=== PATIENT | male | born 1960 | race Two or more races ===

== ENCOUNTER 2019-02-09 10:09 | Emergency (ER) | payer OTHER ==
[~2019-02-09] VITALS: Ht 185.4 cm; Wt 112.5 kg
[2019-02-09] MEDS ORDERED: cloNIDine 0.2 mg/24hr 7DAY PATCH TD ONE (10:30)
[2019-02-09] MEDS ORDERED: FUROSEMIDE 20 MG TAB PO ONE (10:30)
[2019-02-09 10:58] LABS: Basophils # (auto) 0.1 uL; Basophils % (auto) 1.1 % (0.0-2.0); Eosinophils # (auto) 0.1 uL; Eosinophils % (auto) 1.9 % (0.0-7.0); Hematocrit 45.3 % (41.0-53.0); Hemoglobin 15.2 g/dL (13.5-17.5); Lymphocytes # (auto) 1.8 uL; Lymphocytes % (auto) 31.7 % (10.0-50.0); Mean Corpuscular Hemoglobin 29.5 pg (28.0-32.0); Mean Corpuscular Hgb Conc. 33.5 g/dL (32.0-36.0); Monocytes # (auto) 0.5 uL; Monocytes % (auto) 8.6 % (0.0-12.0); Neutrophils # (auto) 3.2 uL; Neutrophils % (auto) 56.7 % (37.0-80.0); Nucleated Red Blood Cells % 0.1 %; Platelet Count (auto) 212 10^3/uL (140-450); Red Blood Cells 5.15 10^6/uL (4.5-5.90); Red Cell Distribution Width 14.5 % (11.8-14.3); White Blood Cell 5.6 10^3/uL (4.4-10.8)
[2019-02-09 11:14] LABS: INR 0.97 (0.9-1.15); Partial Thromboplastin Time 25.8 sec (23.64-32.05)
[2019-02-09 11:20] LABS: Calcium 8.4 mg/dL (8.5-10.1); Potassium 3.5 mmol/L (3.5-5.1)
[2019-02-09 11:24] LABS: BUN/Creatinine Ratio 9.9; Bilirubin, Total 1.2 mg/dL (0.2-1.0); Total Protein 7.4 g/dL (6.4-8.2)
[2019-02-09] MEDS ORDERED: amLODIPine BESYLATE 5 MG TAB PO ONE (11:45)
[2019-02-09] MEDS ORDERED: LABETALOL HCL 5 MG/ML ML 20ML VIAL IV ONE ×2 (12:40→12:45)
[2019-02-09] MEDS: NICARDIPINE 25MG/250ML BAG KIT 250 ML IV SCH ×2 (13:14→17:12)
[2019-02-09 15:05] LABS: Urine WBC None Seen /hpf (0 - 3)
[2019-02-09 15:17] LABS: Urine Bacteria NONE SEEN /hpf (None Seen); Urine Blood Negative /uL (Negative); Urine Specific Gravity 1.009 (1.001-1.035)
[2019-02-09 22:30] VITALS: BP 135/75
== END 2019-02-09 23:00 | disposition short-term general hospital (02) ==
LOC: ER 10:09
DX: I11.0 Hypertensive heart disease with heart failure (principal); I50.9 Heart failure, unspecified; F17.210 Nicotine dependence, cigarettes, uncomplicated; F12.10 Cannabis abuse, uncomplicated
CPT/HCPCS: 36415; 71045; 80053; 81001; 83880; 84484; 85025; 85610; 85730; 93005; 93970; 96365; 96366; 96375

== ENCOUNTER 2019-03-04 17:17 | Emergency (ER) | payer OTHER ==
[~2019-03-04] VITALS: Ht 185.4 cm; Wt 112.0 kg
[2019-03-04] MEDS ORDERED: cloNIDine HCL 0.1 MG TAB PO ONE (18:00)
[2019-03-04 18:34] LABS: Basophils # (auto) 0.1 uL; Basophils % (auto) 2.2 % (0.0-2.0); Eosinophils # (auto) 0.1 uL; Hematocrit 45.7 % (41.0-53.0); Hemoglobin 15.2 g/dL (13.5-17.5); Lymphocytes # (auto) 1.6 uL; Lymphocytes % (auto) 28.2 % (10.0-50.0); Mean Corpuscular Hgb Conc. 33.3 g/dL (32.0-36.0); Mean Corpuscular Volume 86.9 fL (80.0-100.0); Monocytes # (auto) 0.4 uL; Neutrophils # (auto) 3.3 uL; Neutrophils % (auto) 59.6 % (37.0-80.0); Nucleated Red Blood Cells % 0.3 %; Platelet Count (auto) 236 10^3/uL (140-450); Red Blood Cells 5.26 10^6/uL (4.5-5.90); Red Cell Distribution Width 14.2 % (11.8-14.3); White Blood Cell 5.5 10^3/uL (4.4-10.8)
[2019-03-04 18:59] LABS: BUN/Creatinine Ratio 8.9; Potassium 3.7 mmol/L (3.5-5.1)
[2019-03-04 19:02] LABS: Bilirubin, Total 0.4 mg/dL (0.2-1.0); Total Protein 7.6 g/dL (6.4-8.2)
[2019-03-04 19:03] LABS: Magnesium 2.3 mg/dL (1.6-2.6)
[2019-03-04 19:07] LABS: INR 0.96 (0.9-1.15); Partial Thromboplastin Time 24.8 sec (23.64-32.05)
[2019-03-04] MEDS ORDERED: hydrALAZINE HCL 20 MG/ML VL IV ONE ×2 (19:30→20:30)
[2019-03-04] MEDS ORDERED: hydrALAZINE HCL 20 MG/ML VL ONE (20:18)
[2019-03-04 20:48] VITALS: BP 193/101
== END 2019-03-04 21:08 | disposition short-term general hospital (02) ==
LOC: ER 17:17 → EDBD 17:17 → ER 21:08
DX: I63.9 Cerebral infarction, unspecified (principal); I10 Essential (primary) hypertension; G45.9 Transient cerebral ischemic attack, unspecified; I63.81 Other cerebral infarction due to occlusion or stenosis of small artery; E78.5 Hyperlipidemia, unspecified; F17.210 Nicotine dependence, cigarettes, uncomplicated; F12.10 Cannabis abuse, uncomplicated
CPT/HCPCS: 36415; 70450; 71045; 80053; 83735; 84484; 85025; 85610; 85730; 93005; 94761; 96374; 96376; 99291; J0360; J7042

== ENCOUNTER 2020-03-04 13:28 | Inpatient (IN) | payer MEDICAID, OTHER ==
[~2020-03-04] VITALS: Ht 188 cm; Wt 108.0 kg
[2020-03-04] MEDS ORDERED: SODIUM CHLORIDE 0.9% 1,000 ML IV ONE (13:34)
[2020-03-04] MEDS ORDERED: LABETALOL HCL 5 MG/ML 4ML SYRINGE IV ONE (15:15)
[2020-03-04] MEDS ORDERED: ENOXAPARIN SOD 120 MG/0.8 ML SYRINGE SC ONE (15:15)
[2020-03-04 15:54] LABS: Basophils # (auto) 0.1 10 ^3/uL (0-0.2); Basophils % (auto) 1.1 % (0.0-2.0); Eosinophils # (auto) 0.1 10 ^3/uL (0-0.8); Eosinophils % (auto) 1.6 % (0.0-7.0); Hematocrit 42.3 % (41.0-53.0); Hemoglobin 14.4 g/dL (13.5-17.5); Lymphocytes # (auto) 1.2 10 ^3/uL (0.4-5.4); Lymphocytes % (auto) 17.3 % (10.0-50.0); Mean Corpuscular Hemoglobin 29.7 pg (28.0-32.0); Mean Corpuscular Hgb Conc. 34.1 g/dL (32.0-36.0); Monocytes # (auto) 0.6 10 ^3/uL (0-1.3); Monocytes % (auto) 8.9 % (0.0-12.0); Neutrophils % (auto) 71.1 % (37.0-80.0); Nucleated Red Blood Cells % 0.1 %; Platelet Count (auto) 306 10^3/uL (140-450); Red Blood Cells 4.86 10^6/uL (4.5-5.90)
[2020-03-04 16:14] LABS: Albumin 3.3 g/dL (3.4-5.0); BUN/Creatinine Ratio 8.9; Calcium 8.7 mg/dL (8.5-10.1); Potassium 3.6 mmol/L (3.5-5.1)
[2020-03-04 16:18] LABS: Bilirubin, Total 0.8 mg/dL (0.2-1.0); Total Protein 7.2 g/dL (6.4-8.2)
[2020-03-04 16:23] LABS: Partial Thromboplastin Time 26.7 sec (23.0-31.2)
[2020-03-04] MEDS ORDERED: SODIUM CHLORIDE 0.9% 1,000 ML IV SCH (16:30)
[2020-03-04] MEDS ORDERED: MORPHINE SULF INJ 2 MG/ML SYRINGE 1ML IV PRN ×2 (16:30)
[2020-03-04] MEDS ORDERED: NITROGLYCERIN 0.4 MG SL TAB SL PRN (16:30)
[2020-03-04] MEDS ORDERED: DOCUSATE CALCIUM 240 MG CAP PO PRN (16:30)
[2020-03-04] MEDS ORDERED: LORazepam 0.5 MG TAB PO PRN (16:30)
[2020-03-04] MEDS ORDERED: LABETALOL HCL 5 MG/ML 4ML SYRINGE IV PRN (16:30)
[2020-03-04] MEDS ORDERED: FURO1TAB31 PO (19:12)
[2020-03-04] MEDS ORDERED: POTA1TAB61 PO (19:55)
[2020-03-04] MEDS ORDERED: LISI-275 PO (19:55)
[2020-03-04] MEDS ORDERED: ATOR40TA52 PO (19:55)
[2020-03-04] MEDS ORDERED: AMLO5TAB15 PO (19:55)
[2020-03-04] MEDS ORDERED: HYDR10TA26 PO (19:55)
[2020-03-04] MEDS ORDERED: ASCO500T11 PO (19:55)
[2020-03-04] MEDS ORDERED: DABI75CA5 PO (19:55)
[2020-03-04] MEDS ORDERED: METO25TA5 PO (19:55)
[2020-03-04] MEDS ORDERED: BENZ100C97 PO (19:55)
[2020-03-04 22:00] VITALS: BP 157/108
[2020-03-04] MEDS: ENOXAPARIN SOD 120 MG/0.8 ML SYRINGE SC SCH (22:12)
[2020-03-04 22:13] VITALS: BP 157/108
[2020-03-05] VITALS: BP 146/81
[2020-03-05 05:00] VITALS: BP 155/94
[2020-03-05 06:26] LABS: Basophils # (auto) 0 10 ^3/uL (0-0.2); Basophils % (auto) 0.5 % (0.0-2.0); Eosinophils # (auto) 0.2 10 ^3/uL (0-0.8); Eosinophils % (auto) 2.6 % (0.0-7.0); Hematocrit 41.9 % (41.0-53.0); Hemoglobin 14.1 g/dL (13.5-17.5); Lymphocytes # (auto) 1.8 10 ^3/uL (0.4-5.4); Lymphocytes % (auto) 31.1 % (10.0-50.0); Mean Corpuscular Hemoglobin 29.8 pg (28.0-32.0); Mean Corpuscular Hgb Conc. 33.8 g/dL (32.0-36.0); Mean Corpuscular Volume 88.3 fL (80.0-100.0); Monocytes # (auto) 0.6 10 ^3/uL (0-1.3); Monocytes % (auto) 10.4 % (0.0-12.0); Neutrophils # (auto) 3.3 10 ^3/uL (1.6-8.6); Neutrophils % (auto) 55.4 % (37.0-80.0); Nucleated Red Blood Cells % 0.1 %; Platelet Count (auto) 275 10^3/uL (140-450); Red Blood Cells 4.74 10^6/uL (4.5-5.90); Red Cell Distribution Width 13.3 % (11.8-14.3); White Blood Cell 5.9 10^3/uL (4.4-10.8)
[2020-03-05 07:00] LABS: Potassium 3.7 mmol/L (3.5-5.1)
[2020-03-05 07:32] LABS: Albumin 3.4 g/dL (3.4-5.0); BUN/Creatinine Ratio 10.7; Bilirubin, Total 0.6 mg/dL (0.2-1.0); Calcium 8.7 mg/dL (8.5-10.1); Total Protein 6.8 g/dL (6.4-8.2)
[2020-03-05 09:00] VITALS: BP 166/86
[2020-03-05] MEDS: PANTOPRAZOLE 40 MG TAB PO SCH (09:55)
[2020-03-05] MEDS: ENOXAPARIN SOD 120 MG/0.8 ML SYRINGE SC SCH ×2 (09:56→21:28)
[2020-03-05] MEDS ORDERED: traMADol HCL 50 MG TAB PO PRN (11:30)
[2020-03-05] MEDS ORDERED: amLODIPine BESYLATE 5 MG TAB PO ONE (11:30)
[2020-03-05] MEDS ORDERED: LABETALOL HCL 5 MG/ML 4ML SYRINGE IV PRN (11:30)
[2020-03-05] MEDS ORDERED: METOPROLOL TARTRATE 25 MG TAB PO ONE (11:30)
[2020-03-05] MEDS ORDERED: DABI75CA5 PO (12:22)
[2020-03-05] MEDS ORDERED: ATOR10TA PO (12:22)
[2020-03-05 13:02] VITALS: BP 160/79
[2020-03-05 16:46] VITALS: BP 151/79
[2020-03-05 21:16] LABS: Urine Bacteria NONE SEEN /hpf (None Seen); Urine Blood Negative /uL (Negative); Urine Mucus FEW (None Seen); Urine Specific Gravity 1.019 (1.001-1.035); Urine WBC 2 /hpf (0 - 3)
[2020-03-05] MEDS: ATORVASTATIN 20 MG TAB PO SCH (21:27)
[2020-03-05] MEDS: METOPROLOL TARTRATE 25 MG TAB PO SCH (21:28)
[2020-03-05 22:00] VITALS: BP 131/72
[2020-03-06] VITALS (26 sets, daily range): BP systolic 121–160; BP diastolic 77–100
[2020-03-06 06:05] LABS: Basophils # (auto) 0.1 10 ^3/uL (0-0.2); Basophils % (auto) 0.9 % (0.0-2.0); Eosinophils # (auto) 0.2 10 ^3/uL (0-0.8); Eosinophils % (auto) 3.4 % (0.0-7.0); Hematocrit 41.3 % (41.0-53.0); Hemoglobin 14.3 g/dL (13.5-17.5); Lymphocytes % (auto) 34.2 % (10.0-50.0); Mean Corpuscular Hemoglobin 29.9 pg (28.0-32.0); Mean Corpuscular Hgb Conc. 34.6 g/dL (32.0-36.0); Mean Corpuscular Volume 86.7 fL (80.0-100.0); Monocytes # (auto) 0.5 10 ^3/uL (0-1.3); Monocytes % (auto) 8.7 % (0.0-12.0); Neutrophils # (auto) 3.2 10 ^3/uL (1.6-8.6); Neutrophils % (auto) 52.8 % (37.0-80.0); Nucleated Red Blood Cells % 0.2 %; Platelet Count (auto) 296 10^3/uL (140-450); Red Blood Cells 4.76 10^6/uL (4.5-5.90)
[2020-03-06 06:27] LABS: Calcium 8.8 mg/dL (8.5-10.1); Potassium 3.7 mmol/L (3.5-5.1)
[2020-03-06 06:29] LABS: BUN/Creatinine Ratio 10.8
[2020-03-06] MEDS: METOPROLOL TARTRATE 25 MG TAB PO SCH ×2 (10:27→22:29)
[2020-03-06] MEDS: amLODIPine BESYLATE 5 MG TAB PO SCH (10:27)
[2020-03-06] MEDS: PANTOPRAZOLE 40 MG TAB PO SCH (10:28)
[2020-03-06] MEDS: ENOXAPARIN SOD 120 MG/0.8 ML SYRINGE SC SCH (10:28)
[2020-03-06] MEDS ORDERED: POTASSIUM CHL 20 Meq TABLET PO ONE (10:30)
[2020-03-06] MEDS ORDERED: FUROSEMIDE 40 MG TAB PO ONE (10:30)
[2020-03-06] MEDS ORDERED: IOHEXOL 300 MG/ML 100ML BOTTLE IJ ONE (11:12)
[2020-03-06] MEDS ORDERED: LIDOCAINE 2%HCL (LOCAL ANESTH.) INJ 20ML MDV ONE (14:02)
[2020-03-06] MEDS ORDERED: IOHEXOL 350 MG/ML 100ML IJ ONE ×2 (14:03)
[2020-03-06] MEDS ORDERED: fentaNYL CITRATE 100 MCG/2 ML VL ONE ×2 (14:20→16:30)
[2020-03-06] MEDS ORDERED: MIDAZOLAM HCL 1MG/1ML-2 ML VIAL ONE (14:20)
[2020-03-06] MEDS ORDERED: LABETALOL HCL 5 MG/ML ML 20ML VIAL IV ONE (14:34)
[2020-03-06] MEDS ORDERED: ANGIOMAX 250 MG VIAL IV ONE (14:40)
[2020-03-06] MEDS ORDERED: SODIUM CHL 0.9% 0 ML ONE (14:40)
[2020-03-06] MEDS ORDERED: CATHFLO ACTIVASE (ALTEPLASE) 2 MG VIAL IV ONE ×3 (14:45→16:30)
[2020-03-06] MEDS ORDERED: IODIXANOL 320MG/ML 100ML BTL IV ONE ×2 (14:50→15:56)
[2020-03-06] MEDS ORDERED: HEPARIN DRIP/D5W 100UNITS/ML 250 ML IV SCH (16:41)
[2020-03-06] MEDS ORDERED: SODIUM CHL 0.9% IV ONE (17:00)
[2020-03-06] MEDS ORDERED: CATHFLO IV ONE (17:00)
[2020-03-06] MEDS ORDERED: ALTEPLASE IV ONE (17:00)
[2020-03-06] MEDS: ALTEPLASE IV SCH ×4 (17:30)
[2020-03-06] MEDS: SODIUM CHL 0.9% IV SCH ×4 (17:30)
[2020-03-06] MEDS: CATHFLO IV SCH ×4 (17:30)
[2020-03-06 17:39] LABS: Basophils # (auto) 0.1 10 ^3/uL (0-0.2); Basophils % (auto) 0.6 % (0.0-2.0); Eosinophils # (auto) 0.1 10 ^3/uL (0-0.8); Eosinophils % (auto) 1.3 % (0.0-7.0); Hematocrit 39.4 % (41.0-53.0); Hemoglobin 13.2 g/dL (13.5-17.5); Lymphocytes # (auto) 1.2 10 ^3/uL (0.4-5.4); Mean Corpuscular Hemoglobin 29.5 pg (28.0-32.0); Mean Corpuscular Hgb Conc. 33.5 g/dL (32.0-36.0); Mean Corpuscular Volume 87.9 fL (80.0-100.0); Monocytes # (auto) 0.6 10 ^3/uL (0-1.3); Neutrophils # (auto) 7.8 10 ^3/uL (1.6-8.6); Neutrophils % (auto) 80.1 % (37.0-80.0); Nucleated Red Blood Cells % 0.1 %; Platelet Count (auto) 302 10^3/uL (140-450); Red Blood Cells 4.49 10^6/uL (4.5-5.90); White Blood Cell 9.7 10^3/uL (4.4-10.8)
[2020-03-06 17:55] LABS: INR 1.03 (0.9-1.15); Partial Thromboplastin Time 28.2 sec (23.0-31.2)
[2020-03-06] MEDS: ATORVASTATIN 20 MG TAB PO SCH (22:28)
[2020-03-07] VITALS (42 sets, daily range): BP systolic 117–169; BP diastolic 58–96
[2020-03-07 00:52] LABS: Basophils # (auto) 0 10 ^3/uL (0-0.2); Basophils % (auto) 0.5 % (0.0-2.0); Eosinophils # (auto) 0.1 10 ^3/uL (0-0.8); Eosinophils % (auto) 0.8 % (0.0-7.0); Hematocrit 42.2 % (41.0-53.0); Lymphocytes # (auto) 1.7 10 ^3/uL (0.4-5.4); Lymphocytes % (auto) 20.5 % (10.0-50.0); Mean Corpuscular Hgb Conc. 33.1 g/dL (32.0-36.0); Mean Corpuscular Volume 90.5 fL (80.0-100.0); Monocytes # (auto) 0.7 10 ^3/uL (0-1.3); Monocytes % (auto) 8.1 % (0.0-12.0); Neutrophils # (auto) 5.8 10 ^3/uL (1.6-8.6); Neutrophils % (auto) 70.1 % (37.0-80.0); Nucleated Red Blood Cells % 0.1 %; Platelet Count (auto) 289 10^3/uL (140-450); Red Blood Cells 4.67 10^6/uL (4.5-5.90); Red Cell Distribution Width 13.2 % (11.8-14.3); White Blood Cell 8.2 10^3/uL (4.4-10.8)
[2020-03-07 01:30] LABS: INR 1.03 (0.9-1.15); Partial Thromboplastin Time 30.9 sec (23.0-31.2)
[2020-03-07] MEDS: CATHFLO IV SCH ×6 (03:40→13:30)
[2020-03-07] MEDS: ALTEPLASE IV SCH ×6 (03:40→13:30)
[2020-03-07] MEDS: SODIUM CHL 0.9% IV SCH ×6 (03:40→13:30)
[2020-03-07 07:59] LABS: Basophils # (auto) 0 10 ^3/uL (0-0.2); Basophils % (auto) 0.5 % (0.0-2.0); Eosinophils # (auto) 0.1 10 ^3/uL (0-0.8); Eosinophils % (auto) 1.6 % (0.0-7.0); Hematocrit 38.9 % (41.0-53.0); Hemoglobin 13.2 g/dL (13.5-17.5); Lymphocytes % (auto) 28.5 % (10.0-50.0); Mean Corpuscular Hemoglobin 29.8 pg (28.0-32.0); Mean Corpuscular Volume 87.9 fL (80.0-100.0); Monocytes # (auto) 0.6 10 ^3/uL (0-1.3); Monocytes % (auto) 9.1 % (0.0-12.0); Neutrophils # (auto) 4.2 10 ^3/uL (1.6-8.6); Neutrophils % (auto) 60.3 % (37.0-80.0); Nucleated Red Blood Cells % 0.2 %; Platelet Count (auto) 263 10^3/uL (140-450); Red Blood Cells 4.42 10^6/uL (4.5-5.90); Red Cell Distribution Width 13.3 % (11.8-14.3); White Blood Cell 6.9 10^3/uL (4.4-10.8)
[2020-03-07 08:05] LABS: BUN/Creatinine Ratio 11.2; Calcium 8.5 mg/dL (8.5-10.1); Potassium 3.8 mmol/L (3.5-5.1)
[2020-03-07 08:07] LABS: INR 1.08 (0.9-1.15); Partial Thromboplastin Time 32.6 sec (23.0-31.2)
[2020-03-07] MEDS: FUROSEMIDE 40 MG TAB PO SCH (10:10)
[2020-03-07] MEDS: POTASSIUM CHL 20 Meq TABLET PO SCH (10:10)
[2020-03-07] MEDS: METOPROLOL TARTRATE 25 MG TAB PO SCH ×2 (10:11→22:04)
[2020-03-07] MEDS: PANTOPRAZOLE 40 MG TAB PO SCH (10:11)
[2020-03-07] MEDS: amLODIPine BESYLATE 5 MG TAB PO SCH (10:11)
[2020-03-07 12:45] LABS: INR 1.08 (0.9-1.15); Partial Thromboplastin Time 29.9 sec (23.0-31.2)
[2020-03-07] MEDS ORDERED: IOHEXOL 350 MG/ML 100ML IJ ONE (13:16)
[2020-03-07] MEDS ORDERED: LIDOCAINE 2%HCL (LOCAL ANESTH.) INJ 20ML MDV ONE (13:16)
[2020-03-07] MEDS ORDERED: MIDAZOLAM HCL 1MG/1ML-2 ML VIAL ONE (14:36)
[2020-03-07] MEDS ORDERED: fentaNYL CITRATE 100 MCG/2 ML VL ONE (14:36)
[2020-03-07] MEDS ORDERED: HEPARIN DRIP/D5W 100UNITS/ML 250 ML IV SCH ×4 (17:00→21:30)
[2020-03-07] MEDS: HEPARIN DRIP/D5W 100UNITS/ML 250 ML IV SCH (21:30)
[2020-03-07] MEDS: ATORVASTATIN 20 MG TAB PO SCH (22:04)
[2020-03-07 23:55] LABS: INR 1.08 (0.9-1.15)
[2020-03-07 23:56] LABS: Partial Thromboplastin Time 101.1 sec (23.0-31.2)
[2020-03-08] VITALS (29 sets, daily range): BP systolic 128–160; BP diastolic 35–112
[2020-03-08] MEDS: HEPARIN DRIP/D5W 100UNITS/ML 250 ML IV SCH (05:59)
[2020-03-08 06:32] LABS: Potassium 3.7 mmol/L (3.5-5.1)
[2020-03-08 06:34] LABS: Basophils # (auto) 0.1 10 ^3/uL (0-0.2); Basophils % (auto) 0.8 % (0.0-2.0); Eosinophils # (auto) 0.2 10 ^3/uL (0-0.8); Eosinophils % (auto) 2.6 % (0.0-7.0); Hematocrit 34.5 % (41.0-53.0); Hemoglobin 11.7 g/dL (13.5-17.5); Lymphocytes # (auto) 1.9 10 ^3/uL (0.4-5.4); Mean Corpuscular Hemoglobin 29.7 pg (28.0-32.0); Mean Corpuscular Hgb Conc. 33.9 g/dL (32.0-36.0); Mean Corpuscular Volume 87.4 fL (80.0-100.0); Monocytes # (auto) 0.6 10 ^3/uL (0-1.3); Monocytes % (auto) 9.1 % (0.0-12.0); Neutrophils # (auto) 3.6 10 ^3/uL (1.6-8.6); Neutrophils % (auto) 57.5 % (37.0-80.0); Nucleated Red Blood Cells % 0.1 %; Platelet Count (auto) 246 10^3/uL (140-450); Red Blood Cells 3.95 10^6/uL (4.5-5.90); Red Cell Distribution Width 13.2 % (11.8-14.3); White Blood Cell 6.2 10^3/uL (4.4-10.8)
[2020-03-08 06:43] LABS: BUN/Creatinine Ratio 10.5; Calcium 8.3 mg/dL (8.5-10.1)
[2020-03-08 06:49] LABS: INR 1.06 (0.9-1.15)
[2020-03-08] MEDS: POTASSIUM CHL 20 Meq TABLET PO SCH (09:51)
[2020-03-08] MEDS: FUROSEMIDE 40 MG TAB PO SCH (09:52)
[2020-03-08] MEDS: amLODIPine BESYLATE 5 MG TAB PO SCH (09:52)
[2020-03-08] MEDS: METOPROLOL TARTRATE 25 MG TAB PO SCH ×2 (09:53→22:01)
[2020-03-08] MEDS: PANTOPRAZOLE 40 MG TAB PO SCH (09:54)
[2020-03-08 14:03] LABS: INR 1.03 (0.9-1.15)
[2020-03-08] MEDS: APIXABAN 5 MG TAB PO SCH (22:01)
[2020-03-08] MEDS: ATORVASTATIN 20 MG TAB PO SCH (22:01)
[2020-03-09 05:03] VITALS: BP 139/74
[2020-03-09 07:03] LABS: Basophils # (auto) 0.1 10 ^3/uL (0-0.2); Basophils % (auto) 1.2 % (0.0-2.0); Eosinophils # (auto) 0.2 10 ^3/uL (0-0.8); Eosinophils % (auto) 3.2 % (0.0-7.0); Hematocrit 32.4 % (41.0-53.0); Lymphocytes # (auto) 1.7 10 ^3/uL (0.4-5.4); Lymphocytes % (auto) 30.3 % (10.0-50.0); Mean Corpuscular Hemoglobin 29.8 pg (28.0-32.0); Mean Corpuscular Volume 87.6 fL (80.0-100.0); Monocytes # (auto) 0.5 10 ^3/uL (0-1.3); Neutrophils # (auto) 3.1 10 ^3/uL (1.6-8.6); Neutrophils % (auto) 56.3 % (37.0-80.0); Platelet Count (auto) 242 10^3/uL (140-450); White Blood Cell 5.5 10^3/uL (4.4-10.8)
[2020-03-09 09:00] VITALS: BP 158/70
[2020-03-09] MEDS: APIXABAN 5 MG TAB PO SCH ×2 (10:20→21:26)
[2020-03-09] MEDS: METOPROLOL TARTRATE 25 MG TAB PO SCH ×2 (10:21→21:26)
[2020-03-09] MEDS: PANTOPRAZOLE 40 MG TAB PO SCH (10:21)
[2020-03-09] MEDS: FUROSEMIDE 40 MG TAB PO SCH (10:21)
[2020-03-09] MEDS: amLODIPine BESYLATE 5 MG TAB PO SCH (10:21)
[2020-03-09] MEDS: POTASSIUM CHL 20 Meq TABLET PO SCH (10:21)
[2020-03-09 13:00] VITALS: BP 153/71
[2020-03-09 16:52] VITALS: BP 159/83
[2020-03-09] MEDS: ATORVASTATIN 20 MG TAB PO SCH (21:26)
[2020-03-09 22:00] VITALS: BP 145/69
[2020-03-10 05:00] VITALS: BP 144/78
[2020-03-10 08:52] VITALS: BP 154/76
[2020-03-10] MEDS: APIXABAN 5 MG TAB PO SCH ×2 (10:23→21:30)
[2020-03-10] MEDS: PANTOPRAZOLE 40 MG TAB PO SCH (10:23)
[2020-03-10] MEDS: POTASSIUM CHL 20 Meq TABLET PO SCH (10:23)
[2020-03-10] MEDS: amLODIPine BESYLATE 5 MG TAB PO SCH (10:25)
[2020-03-10] MEDS: METOPROLOL TARTRATE 25 MG TAB PO SCH ×2 (10:25→21:30)
[2020-03-10] MEDS: FUROSEMIDE 40 MG TAB PO SCH (10:26)
[2020-03-10 13:00] VITALS: BP 126/69
[2020-03-10 17:00] VITALS: BP 138/75
[2020-03-10] MEDS: ATORVASTATIN 20 MG TAB PO SCH (21:31)
[2020-03-10 21:59] VITALS: BP 139/77
[2020-03-11 05:00] VITALS: BP 133/76
[2020-03-11 06:27] LABS: Basophils # (auto) 0 10 ^3/uL (0-0.2); Basophils % (auto) 0.7 % (0.0-2.0); Eosinophils # (auto) 0.2 10 ^3/uL (0-0.8); Eosinophils % (auto) 2.9 % (0.0-7.0); Hematocrit 34.3 % (41.0-53.0); Hemoglobin 11.8 g/dL (13.5-17.5); Lymphocytes # (auto) 2.1 10 ^3/uL (0.4-5.4); Lymphocytes % (auto) 31.6 % (10.0-50.0); Mean Corpuscular Hemoglobin 29.8 pg (28.0-32.0); Mean Corpuscular Hgb Conc. 34.3 g/dL (32.0-36.0); Mean Corpuscular Volume 86.8 fL (80.0-100.0); Monocytes # (auto) 0.5 10 ^3/uL (0-1.3); Monocytes % (auto) 7.9 % (0.0-12.0); Neutrophils # (auto) 3.7 10 ^3/uL (1.6-8.6); Neutrophils % (auto) 56.9 % (37.0-80.0); Nucleated Red Blood Cells % 0.2 %; Platelet Count (auto) 317 10^3/uL (140-450); Red Blood Cells 3.95 10^6/uL (4.5-5.90); Red Cell Distribution Width 13.2 % (11.8-14.3); White Blood Cell 6.5 10^3/uL (4.4-10.8)
[2020-03-11 06:45] LABS: BUN/Creatinine Ratio 11.3; Calcium 8.8 mg/dL (8.5-10.1); Potassium 3.7 mmol/L (3.5-5.1)
[2020-03-11 08:00] VITALS: BP 144/72
[2020-03-11] MEDS: APIXABAN 5 MG TAB PO SCH (10:09)
[2020-03-11] MEDS: POTASSIUM CHL 20 Meq TABLET PO SCH (10:10)
[2020-03-11] MEDS: FUROSEMIDE 40 MG TAB PO SCH (10:11)
[2020-03-11] MEDS: METOPROLOL TARTRATE 25 MG TAB PO SCH (10:11)
[2020-03-11] MEDS: PANTOPRAZOLE 40 MG TAB PO SCH (10:12)
[2020-03-11] MEDS: amLODIPine BESYLATE 5 MG TAB PO SCH (10:12)
[2020-03-11 12:00] VITALS: BP 134/69
[2020-03-11 14:09] VITALS: BP 134/69
[2020-03-15] MEDS ORDERED: APIXABAN 5 MG TAB PO SCH (22:00)
== END 2020-03-11 19:09 | disposition home or self-care (01) | DRG 197 ==
LOC: EDBD 13:28 → ER 13:28 → TELE 13:29 → TELE-CENTR 21:13 → ICU WEST 03-06 17:45 → TELE-WESTW 03-08 15:52
PROVIDERS: ATTEND Internal Medicine
PROC: 3E04317 Introduction of Other Thrombolytic into Central Vein, Percutaneous Approach (ICD-10-PCS; principal; 2020-03-06)
PROC: 06H03DZ Insertion of Intraluminal Device into Inferior Vena Cava, Percutaneous Approach (ICD-10-PCS; 2020-03-06)
DX: I82.412 Acute embolism and thrombosis of left femoral vein (principal); I26.99 Other pulmonary embolism without acute cor pulmonale; I50.42 Chronic combined systolic (congestive) and diastolic (congestive) heart failure; I82.432 Acute embolism and thrombosis of left popliteal vein; I16.0 Hypertensive urgency; E78.5 Hyperlipidemia, unspecified; I69.354 Hemiplegia and hemiparesis following cerebral infarction affecting left non-dominant side; R60.0 Localized edema; E66.9 Obesity, unspecified; E75.6 Lipid storage disorder, unspecified; Z68.30 Body mass index [BMI] 30.0-30.9, adult; Z79.01 Long term (current) use of anticoagulants; F17.210 Nicotine dependence, cigarettes, uncomplicated; K57.30 Diverticulosis of large intestine without perforation or abscess without bleeding; I11.0 Hypertensive heart disease with heart failure; N28.9 Disorder of kidney and ureter, unspecified
CPT/HCPCS: 36415; 71045; 74177; 76942; 80048; 80053; 80061; 81001; 83036; 83880; 84484; 85025; 85384; 85610; 85730; 87081; 93005; 93971; 99152; 99153; C1769; G0378; J2250; Q9967

== ENCOUNTER 2022-02-26 17:41 | Emergency (ER) | payer OTHER ==
[~2022-02-26] VITALS: Ht 185.4 cm; Wt 99.7 kg
[~2022-02-26 17:41] MED LIST: AMLO-489 PO; ASCO500T11 PO; ATOR10TA PO; ATOR40TA52 PO; BENZ100C97 PO; DABI75CA5 PO; FURO1TAB31 PO; HYDR10TA26 PO; LISI-275 PO; METO25TA5 PO; POTA1TAB61 PO
[2022-02-26] MEDS ORDERED: SODIUM CHLORIDE 0.9% 500 ML IV ONE (18:30)
[2022-02-26 19:20] LABS: Basophils # (auto) 0.1 10 ^3/uL (0-0.2); Basophils % (auto) 1.5 % (0.0-2.0); Eosinophils # (auto) 0.2 10 ^3/uL (0-0.8); Eosinophils % (auto) 2.3 % (0.0-7.0); Hematocrit 40.8 % (41.0-53.0); Hemoglobin 13.3 g/dL (13.5-17.5); Lymphocytes # (auto) 2.1 10 ^3/uL (0.4-5.4); Lymphocytes % (auto) 27.5 % (10.0-50.0); Mean Corpuscular Hemoglobin 27.9 pg (28.0-32.0); Mean Corpuscular Hgb Conc. 32.6 g/dL (32.0-36.0); Mean Corpuscular Volume 85.7 fL (80.0-100.0); Monocytes # (auto) 0.4 10 ^3/uL (0-1.3); Monocytes % (auto) 5.8 % (0.0-12.0); Neutrophils # (auto) 4.8 10 ^3/uL (1.6-8.6); Neutrophils % (auto) 62.9 % (37.0-80.0); Nucleated Red Blood Cells % 0.1 %; Red Blood Cells 4.76 10^6/uL (4.5-5.90); Red Cell Distribution Width 13.8 % (11.8-14.3); White Blood Cell 7.7 10^3/uL (4.4-10.8)
[2022-02-26 19:36] LABS: Albumin 3.5 g/dL (3.4-5.0); Calcium 8.7 mg/dL (8.5-10.1); Magnesium 2.3 mg/dL (1.6-2.6); Potassium 4.3 mmol/L (3.5-5.1)
[2022-02-26 19:41] LABS: BUN/Creatinine Ratio 13.4; Bilirubin, Total 0.4 mg/dL (0.2-1.0)
[2022-02-26 21:31] LABS: Urine Bacteria FEW /hpf (None Seen); Urine Blood 1+ /uL (Negative); Urine WBC 1 /hpf (0 - 3)
[2022-02-27 09:30] VITALS: BP 173/89
== END 2022-02-27 11:31 | disposition home or self-care (01) ==
LOC: EDBD 17:41 → EDUNIT# 17:41 → ER 17:41
DX: E11.65 Type 2 diabetes mellitus with hyperglycemia (principal); I10 Essential (primary) hypertension; E78.5 Hyperlipidemia, unspecified; F17.210 Nicotine dependence, cigarettes, uncomplicated; F12.10 Cannabis abuse, uncomplicated; Z86.73 Personal history of transient ischemic attack (TIA), and cerebral infarction without residual deficits
CPT/HCPCS: 36415; 71045; 80053; 81001; 82962; 83735; 83880; 84484; 85025; 93005; 96360; 99285; J7040

== ENCOUNTER 2022-11-04 16:18 | Emergency (ER) | payer OTHER ==
[~2022-11-04] VITALS: Ht 185.4 cm; Wt 111.4 kg
[~2022-11-04 16:18] MED LIST changes: -AMLO-489 PO; +AMLO1TAB22 PO; +APIX5TAB PO; +ASPI-628 PO; +CEPH-510 PO; +ESCI1TAB36 PO; +FENO145T27 PO; +GAB100C PO; +HYDR-4227 PO; -HYDR10TA26 PO; +INSU70IN3 SC; +METF-372 PO
[2022-11-04 17:13] LABS: Hemoglobin 11.4 g/dL (13.5-17.5)
[2022-11-04 17:16] LABS: Basophils # (auto) 0 10 ^3/uL (0-0.2); Basophils % (auto) 0.6 % (0.0-2.0); Eosinophils # (auto) 0.1 10 ^3/uL (0-0.8); Eosinophils % (auto) 2.2 % (0.0-7.0); Hematocrit 36.2 % (41.0-53.0); Lymphocytes # (auto) 2.1 10 ^3/uL (0.4-5.4); Lymphocytes % (auto) 33.3 % (10.0-50.0); Mean Corpuscular Hemoglobin 28.3 pg (28.0-32.0); Mean Corpuscular Hgb Conc. 31.6 g/dL (32.0-36.0); Mean Corpuscular Volume 89.5 fL (80.0-100.0); Monocytes # (auto) 0.5 10 ^3/uL (0-1.3); Monocytes % (auto) 8.4 % (0.0-12.0); Neutrophils # (auto) 3.6 10 ^3/uL (1.6-8.6); Neutrophils % (auto) 55.5 % (37.0-80.0); Nucleated Red Blood Cells % 0.3 %; Red Blood Cells 4.04 10^6/uL (4.5-5.90); Red Cell Distribution Width 14.9 % (11.8-14.3); White Blood Cell 6.5 10^3/uL (4.4-10.8)
[2022-11-04 17:34] LABS: Alanine Aminotransferase 22 U/L (16-61); Anion Gap 9 (5-15); Aspartate Aminotransferase 9 U/L (15-37); BUN/Creatinine Ratio 12.4 (10.0-20.0); Blood Urea Nitrogen 38 mg/dL (7-18); Calcium 9.1 mg/dL (8.5-10.1); Carbon Dioxide 17 mmol/L (21-32); Chloride 114 mmol/L (98-107); GFR African American 27 mL/min; GFR Non-African American 22 mL/min; Glucose 131 mg/dL (74-106); Potassium 4.2 mmol/L (3.5-5.1); Sodium 140 mmol/L (136-145)
[2022-11-04 17:36] LABS: Alkaline Phosphatase 38 U/L (45-117); Bilirubin, Total 0.5 mg/dL (0.2-1.0); Total Protein 6.8 g/dL (6.4-8.2)
[2022-11-04 22:32] LABS: Urine Bacteria MOD /hpf (None Seen); Urine Blood 2+ /uL (Negative); Urine WBC 3690 /hpf (0 - 3); Urine WBC Clumps PRESENT /hpf (None Seen)
[2022-11-04] MEDS ORDERED: CEPH-510 PO (22:54)
[2022-11-04] MEDS ORDERED: SODIUM CHLORIDE 0.9% 250 ML IV ONE (23:00)
[2022-11-04] MEDS ORDERED: cefTRIAXone 1GM/50ML D5W 50 ML IV ONE (23:00)
[2022-11-05 13:03] VITALS: BP 131/83
== END 2022-11-05 18:47 | disposition home or self-care (01) ==
LOC: EDBD 16:18 → ER 16:18
DX: N39.0 Urinary tract infection, site not specified (principal); E11.22 Type 2 diabetes mellitus with diabetic chronic kidney disease; I12.9 Hypertensive chronic kidney disease with stage 1 through stage 4 chronic kidney disease, or unspecified chronic kidney disease; N18.9 Chronic kidney disease, unspecified; E78.5 Hyperlipidemia, unspecified; F17.210 Nicotine dependence, cigarettes, uncomplicated; F12.10 Cannabis abuse, uncomplicated; Z86.73 Personal history of transient ischemic attack (TIA), and cerebral infarction without residual deficits
CPT/HCPCS: 36415; 51701; 71045; 80053; 81001; 83605; 85025; 87086; 96365; 96366; 99284; J0696; J7030

== ENCOUNTER 2023-02-26 02:32 | Inpatient (IN) | payer OTHER ==
[2023-02-26] VITALS (7 sets, daily range): BP systolic 92–94; BP diastolic 63–65; PULSE 68–109; RESP 10–20; TEMP 36.6; O2SAT 98–100
[~2023-02-26] VITALS: Ht 185.4 cm; Wt 77.1 kg
[2023-02-26] MEDS ORDERED: SODIUM CHLORIDE 0.9% 1,000 ML IV ONE (03:30)
[2023-02-26 03:36] LABS: Basophils # (auto) 0.1 10 ^3/uL (0-0.2); Basophils % (auto) 0.5 % (0.0-2.0); Eosinophils # (auto) 0.1 10 ^3/uL (0-0.8); Eosinophils % (auto) 1.4 % (0.0-7.0); Hematocrit 33.6 % (41.0-53.0); Hemoglobin 11.2 g/dL (13.5-17.5); Mean Corpuscular Hemoglobin 28.7 pg (28.0-32.0); Mean Corpuscular Hgb Conc. 33.4 g/dL (32.0-36.0); Mean Corpuscular Volume 85.8 fL (80.0-100.0); Monocytes # (auto) 0.7 10 ^3/uL (0-1.3); Neutrophils # (auto) 5.5 10 ^3/uL (1.6-8.6); Neutrophils % (auto) 53.1 % (37.0-80.0); Nucleated Red Blood Cells % 0.2 %; Red Blood Cells 3.91 10^6/uL (4.5-5.90); Red Cell Distribution Width 17.3 % (11.8-14.3); White Blood Cell 10.4 10^3/uL (4.4-10.8)
[2023-02-26] MEDS ORDERED: PIPERACILLIN-TAZOB 3.375GM 100 ML IV ONE (03:45)
[2023-02-26 03:52] LABS: Urine WBC None Seen /hpf (0 - 3)
[2023-02-26] MEDS ORDERED: ONDANSETRON HCL 4 MG/2 ML VIAL IV ONE (04:15)
[2023-02-26] MEDS ORDERED: MORPHINE SULFATE INJ 2 MG/ml SYRG IV ONE (04:15)
[2023-02-26 04:17] LABS: Lactic Acid w/Reflex 2.2 mmol/L (0.4-2.0)
[2023-02-26] MEDS ORDERED: HYDROmorphone HCL 2 MG/ML VL/or syr IV ONE (04:45)
[2023-02-26 06:27] LABS: Urine Bacteria NONE SEEN /hpf (None Seen)
[2023-02-26] MEDS ORDERED: MORPHINE SULFATE INJ 2 MG/ml SYRG IV PRN ×2 (06:30→07:30)
[2023-02-26] MEDS ORDERED: HYDROcodone-ACET 5/325MG TAB PO PRN (06:30)
[2023-02-26] MEDS ORDERED: DOCUSATE SOD 100 MG CAP PO PRN (06:30)
[2023-02-26] MEDS ORDERED: SODIUM CHLORIDE 0.9% 1,000 ML IV SCH (06:30)
[2023-02-26] MEDS ORDERED: ACETAMINOPHEN 325 MG TAB PO PRN (06:30)
[2023-02-26] MEDS ORDERED: ONDANSETRON HCL 4 MG/2 ML VIAL IV PRN (06:30)
[2023-02-26] MEDS ORDERED: DEXTROSE (50%) 50ML SYRG IV PRN ×2 (06:30→16:15)
[2023-02-26] MEDS: ACCU-CHEK COMFORT CURVE STRIP VI SCH ×4 (06:48→21:48)
[2023-02-26] MEDS: InsuLIN REG 1unit/0.01ml Soln (100units/ml) SC SCH ×4 (06:50→21:48)
[2023-02-26 06:52] LABS: Urine Clarity TURBID (Clear)
[2023-02-26 06:53] LABS: Urine Protein, UAD 1+ (Negative); Urine Urobilinogen Normal (Negative)
[2023-02-26 06:54] LABS: Urine Blood 1+ /uL (Negative)
[2023-02-26 06:58] LABS: Alanine Aminotransferase 17 U/L (7-40); Albumin 3.5 g/dL (3.2-4.8); Alkaline Phosphatase 32 U/L (46-116); Anion Gap 9 (5-15); Aspartate Aminotransferase 19 U/L (13-40); BUN/Creatinine Ratio 7.6 (10.0-20.0); Bilirubin, Total 0.4 mg/dL (0.2-1.0); Blood Urea Nitrogen 22 mg/dL (9-23); Carbon Dioxide 19 mmol/L (20-30); Chloride 112 mmol/L (98-107); Glucose 121 mg/dL (74-106); Lipase 70 U/L (12-53); Potassium 4.2 mmol/L (3.5-5.1); Sodium 140 mmol/L (136-145); Total Protein 6.3 g/dL (5.7-8.2)
[2023-02-26] MEDS ORDERED: NITROGLYCERIN 0.4 MG SL TAB SL PRN (07:30)
[2023-02-26 07:51] LABS: INR 1.07 (0.9-1.15); Partial Thromboplastin Time 29.4 SEC (24.5-34.5); Prothrombin Time 11.2 sec (9.3-11.8)
[2023-02-26] MEDS: cefTRIAXone 1GM/50ML D5W 50 ML IV SCH (09:11)
[2023-02-26] MEDS: APIXABAN 5 MG TAB PO SCH ×2 (11:53→21:46)
[2023-02-26] MEDS: SODIUM BICARBONATE 50ML VIAL 50 ML in SOD CHL 0.45% 1,000 ML IV SCH ×2 (12:38→20:45)
[2023-02-26 12:44] LABS: Creatinine, Urine 59.38 mg/dL (30.0-125.0)
[2023-02-26 12:47] LABS: Protein, Urine 268.8 mg/dL (0.0-11.9); Urine Protein/Creatinine Ratio 4.53
[2023-02-26] MEDS ORDERED: SODIUM CHLORIDE 0.9% 500 ML IV ONE (16:00)
[2023-02-26] MEDS ORDERED: InsuLIN REG 1unit/0.01ml Soln (100units/ml) SC SCH (22:00)
[2023-02-27] VITALS (7 sets, daily range): BP systolic 95–119; BP diastolic 65–76; PULSE 70–94; RESP 14–18; TEMP 97.8–98.3; O2SAT 92–100
[2023-02-27] MEDS: InsuLIN REG 1unit/0.01ml Soln (100units/ml) SC SCH ×4 (06:42→21:28)
[2023-02-27] MEDS: ACCU-CHEK COMFORT CURVE STRIP VI SCH ×4 (06:42→21:28)
[2023-02-27] MEDS: cefTRIAXone 1GM/50ML D5W 50 ML IV SCH (09:43)
[2023-02-27] MEDS: APIXABAN 5 MG TAB PO SCH ×2 (09:43→21:17)
[2023-02-27] MEDS: MEROPENEM 1GM IVPB 100 ML IV SCH ×2 (11:44→21:17)
[2023-02-27 12:10] LABS: Basophils # (auto) 0 10 ^3/uL (0-0.2); Basophils % (auto) 0.7 % (0.0-2.0); Eosinophils # (auto) 0.2 10 ^3/uL (0-0.8); Eosinophils % (auto) 2.3 % (0.0-7.0); Lymphocytes # (auto) 2.8 10 ^3/uL (0.4-5.4); Lymphocytes % (auto) 37.9 % (10.0-50.0); Mean Corpuscular Hemoglobin 28.2 pg (28.0-32.0); Mean Corpuscular Hgb Conc. 32.1 g/dL (32.0-36.0); Mean Corpuscular Volume 87.7 fL (80.0-100.0); Monocytes # (auto) 0.5 10 ^3/uL (0-1.3); Monocytes % (auto) 6.7 % (0.0-12.0); Neutrophils # (auto) 3.8 10 ^3/uL (1.6-8.6); Neutrophils % (auto) 52.4 % (37.0-80.0); Nucleated Red Blood Cells % 0.1 %; Red Blood Cells 3.54 10^6/uL (4.5-5.90); Red Cell Distribution Width 17.5 % (11.8-14.3); White Blood Cell 7.3 10^3/uL (4.4-10.8)
[2023-02-27 12:30] LABS: Alanine Aminotransferase 17 U/L (7-40); Albumin 3.1 g/dL (3.2-4.8); Alkaline Phosphatase 29 U/L (46-116); Anion Gap 6 (5-15); Aspartate Aminotransferase 19 U/L (13-40); BUN/Creatinine Ratio 9.8 (10.0-20.0); Blood Urea Nitrogen 22 mg/dL (9-23); Calcium 8.6 mg/dL (8.7-10.4); Carbon Dioxide 24 mmol/L (20-30); Chloride 110 mmol/L (98-107); Glucose 121 mg/dL (74-106); Potassium 3.5 mmol/L (3.5-5.1); Sodium 140 mmol/L (136-145)
[2023-02-27 12:31] LABS: Bilirubin, Total 0.2 mg/dL (0.2-1.0); Total Protein 5.6 g/dL (5.7-8.2)
[2023-02-27] MEDS: SODIUM BICARBONATE 50ML VIAL 50 ML in SOD CHL 0.45% 1,000 ML IV SCH ×2 (17:15→17:16)
[2023-02-28] VITALS (7 sets, daily range): BP systolic 105–150; BP diastolic 61–94; PULSE 58–86; RESP 12–18; TEMP 97.4–98.1; O2SAT 94–100
[2023-02-28] MEDS: SODIUM BICARBONATE 50ML VIAL 50 ML in SOD CHL 0.45% 1,000 ML IV SCH (04:15)
[2023-02-28] MEDS: ACCU-CHEK COMFORT CURVE STRIP VI SCH ×4 (06:50→21:54)
[2023-02-28] MEDS: InsuLIN REG 1unit/0.01ml Soln (100units/ml) SC SCH ×4 (06:50→21:55)
[2023-02-28] MEDS: APIXABAN 5 MG TAB PO SCH ×2 (09:54→21:53)
[2023-02-28] MEDS: MEROPENEM 1GM IVPB 100 ML IV SCH ×2 (09:55→21:54)
[2023-02-28 10:00] LABS: Basophils # (auto) 0.1 10 ^3/uL (0-0.2); Basophils % (auto) 0.9 % (0.0-2.0); Eosinophils # (auto) 0.1 10 ^3/uL (0-0.8); Eosinophils % (auto) 1.5 % (0.0-7.0); Hematocrit 33.9 % (41.0-53.0); Hemoglobin 10.7 g/dL (13.5-17.5); Lymphocytes # (auto) 2.4 10 ^3/uL (0.4-5.4); Lymphocytes % (auto) 31.5 % (10.0-50.0); Mean Corpuscular Hemoglobin 28.3 pg (28.0-32.0); Mean Corpuscular Hgb Conc. 31.6 g/dL (32.0-36.0); Mean Corpuscular Volume 89.6 fL (80.0-100.0); Monocytes # (auto) 0.5 10 ^3/uL (0-1.3); Neutrophils # (auto) 4.7 10 ^3/uL (1.6-8.6); Neutrophils % (auto) 60.1 % (37.0-80.0); Nucleated Red Blood Cells % 0.1 %; Red Blood Cells 3.78 10^6/uL (4.5-5.90); Red Cell Distribution Width 17.8 % (11.8-14.3); White Blood Cell 7.8 10^3/uL (4.4-10.8)
[2023-02-28 10:23] LABS: Alanine Aminotransferase 20 U/L (7-40); Alkaline Phosphatase 29 U/L (46-116)
[2023-02-28 10:24] LABS: Anion Gap 5 (5-15); Aspartate Aminotransferase 23 U/L (13-40); BUN/Creatinine Ratio 10.6 (10.0-20.0); Bilirubin, Total 0.3 mg/dL (0.2-1.0); Blood Urea Nitrogen 21 mg/dL (9-23); Calcium 9.1 mg/dL (8.7-10.4); Carbon Dioxide 23 mmol/L (20-30); Chloride 111 mmol/L (98-107); Glucose 142 mg/dL (74-106); Potassium 3.7 mmol/L (3.5-5.1); Sodium 139 mmol/L (136-145)
[2023-02-28 10:56] LABS: Albumin 3.3 g/dL (3.2-4.8)
[2023-02-28] MEDS: SOD CHL 0.45% 1,000 ML IV SCH ×2 (11:47→22:02)
[2023-03-01 05:01] VITALS: BP 139/80; PULSE 57; RESP 17; TEMP 98.6; O2SAT 99
[2023-03-01] MEDS: InsuLIN REG 1unit/0.01ml Soln (100units/ml) SC SCH ×4 (06:01→21:57)
[2023-03-01] MEDS: ACCU-CHEK COMFORT CURVE STRIP VI SCH ×4 (06:01→21:52)
[2023-03-01] MEDS: SOD CHL 0.45% 1,000 ML IV SCH ×2 (06:46→16:15)
[2023-03-01 06:49] LABS: Basophils # (auto) 0.1 10 ^3/uL (0-0.2); Basophils % (auto) 0.9 % (0.0-2.0); Eosinophils # (auto) 0.2 10 ^3/uL (0-0.8); Eosinophils % (auto) 1.8 % (0.0-7.0); Hematocrit 33.7 % (41.0-53.0); Hemoglobin 10.7 g/dL (13.5-17.5); Lymphocytes # (auto) 3.2 10 ^3/uL (0.4-5.4); Lymphocytes % (auto) 37.1 % (10.0-50.0); Mean Corpuscular Hgb Conc. 31.7 g/dL (32.0-36.0); Mean Corpuscular Volume 88.2 fL (80.0-100.0); Monocytes # (auto) 0.5 10 ^3/uL (0-1.3); Monocytes % (auto) 6.3 % (0.0-12.0); Neutrophils # (auto) 4.7 10 ^3/uL (1.6-8.6); Neutrophils % (auto) 53.9 % (37.0-80.0); Nucleated Red Blood Cells % 0.1 %; Red Blood Cells 3.82 10^6/uL (4.5-5.90); Red Cell Distribution Width 17.8 % (11.8-14.3); White Blood Cell 8.7 10^3/uL (4.4-10.8)
[2023-03-01 07:04] LABS: Anion Gap 5 (5-15); Carbon Dioxide 24 mmol/L (20-30); Chloride 111 mmol/L (98-107); Potassium 4.5 mmol/L (3.5-5.1); Sodium 140 mmol/L (136-145)
[2023-03-01 07:06] LABS: Calcium 9.2 mg/dL (8.7-10.4)
[2023-03-01 07:10] LABS: BUN/Creatinine Ratio 9.9 (10.0-20.0); Blood Urea Nitrogen 20 mg/dL (9-23); Glucose 91 mg/dL (74-106)
[2023-03-01 08:07] LABS: PSA Free 0.45 ng/mL; Prostate Specific Antigen 1.8 ng/mL (0.0-4.0)
[2023-03-01 08:10] VITALS: O2SAT 96
[2023-03-01 08:30] VITALS: BP 115/73; PULSE 87; RESP 16; TEMP 98.4; O2SAT 97
[2023-03-01] MEDS: MEROPENEM 1GM IVPB 100 ML IV SCH ×2 (08:59→23:45)
[2023-03-01] MEDS: APIXABAN 5 MG TAB PO SCH ×2 (08:59→21:48)
[2023-03-01] MEDS ORDERED: VANCOMYCIN PER PHARMACY 0 MG IV SCH (11:30)
[2023-03-01] MEDS ORDERED: VANCOMYCIN 1GM/250ML 250 ML IV ONE (12:30)
[2023-03-01 14:10] VITALS: BP 117/80; PULSE 88; RESP 18; TEMP 98; O2SAT 97
[2023-03-01] MEDS ORDERED: MORPHINE SULFATE INJ 2 MG/ml SYRG IV PRN (15:45)
[2023-03-01 17:15] VITALS: BP 125/78; PULSE 93; RESP 18; TEMP 97.9; O2SAT 96
[2023-03-01] MEDS: LINEZOLID 600MG/300ML 300 ML IV SCH (20:26)
[2023-03-01 23:18] VITALS: BP 107/62; PULSE 76; RESP 17; TEMP 97.9; O2SAT 96
[2023-03-02] MEDS: SOD CHL 0.45% 1,000 ML IV SCH ×2 (02:50→12:15)
[2023-03-02 05:23] VITALS: BP 123/74; PULSE 81; RESP 18; TEMP 97.6; O2SAT 97
[2023-03-02] MEDS: ACCU-CHEK COMFORT CURVE STRIP VI SCH ×4 (06:04→21:33)
[2023-03-02] MEDS: InsuLIN REG 1unit/0.01ml Soln (100units/ml) SC SCH ×4 (06:04→21:42)
[2023-03-02 06:25] LABS: Anion Gap 6 (5-15); Carbon Dioxide 22 mmol/L (20-30); Chloride 109 mmol/L (98-107); Potassium 4.2 mmol/L (3.5-5.1); Sodium 137 mmol/L (136-145)
[2023-03-02 06:27] LABS: Calcium 8.7 mg/dL (8.7-10.4)
[2023-03-02 06:31] LABS: Glucose 93 mg/dL (74-106)
[2023-03-02 06:32] LABS: BUN/Creatinine Ratio 12.5 (10.0-20.0); Blood Urea Nitrogen 22 mg/dL (9-23)
[2023-03-02 07:18] LABS: Basophils # (auto) 0.1 10 ^3/uL (0-0.2); Basophils % (auto) 0.8 % (0.0-2.0); Eosinophils # (auto) 0.2 10 ^3/uL (0-0.8); Eosinophils % (auto) 3.1 % (0.0-7.0); Hematocrit 30.8 % (41.0-53.0); Lymphocytes # (auto) 2.7 10 ^3/uL (0.4-5.4); Lymphocytes % (auto) 35.8 % (10.0-50.0); Mean Corpuscular Hemoglobin 28.2 pg (28.0-32.0); Mean Corpuscular Hgb Conc. 32.5 g/dL (32.0-36.0); Mean Corpuscular Volume 86.6 fL (80.0-100.0); Monocytes # (auto) 0.5 10 ^3/uL (0-1.3); Monocytes % (auto) 6.8 % (0.0-12.0); Neutrophils % (auto) 53.5 % (37.0-80.0); Nucleated Red Blood Cells % 0.1 %; Red Blood Cells 3.55 10^6/uL (4.5-5.90); Red Cell Distribution Width 17.2 % (11.8-14.3); White Blood Cell 7.5 10^3/uL (4.4-10.8)
[2023-03-02 08:00] VITALS: RESP 16
[2023-03-02] MEDS: LINEZOLID 600MG/300ML 300 ML IV SCH ×2 (08:30→20:06)
[2023-03-02 09:00] VITALS: BP 121/82; PULSE 85; RESP 20; TEMP 98.3; O2SAT 99
[2023-03-02] MEDS: APIXABAN 5 MG TAB PO SCH ×2 (10:42→21:32)
[2023-03-02] MEDS: MEROPENEM 1GM IVPB 100 ML IV SCH ×2 (11:46→22:46)
[2023-03-02 13:00] VITALS: BP 111/74; PULSE 89; RESP 20; TEMP 98; O2SAT 99
[2023-03-02 17:01] VITALS: BP 123/69; PULSE 68; RESP 20; TEMP 98; O2SAT 96
[2023-03-02 22:00] VITALS: BP 120/68; PULSE 96; RESP 19; TEMP 98.1; O2SAT 100
[2023-03-03] MEDS: SOD CHL 0.45% 1,000 ML IV SCH ×3 (00:05→18:15)
[2023-03-03 05:00] VITALS: BP 120/64; PULSE 88; RESP 19; TEMP 98.1; O2SAT 100
[2023-03-03] MEDS: InsuLIN REG 1unit/0.01ml Soln (100units/ml) SC SCH ×3 (06:13→16:42)
[2023-03-03] MEDS: ACCU-CHEK COMFORT CURVE STRIP VI SCH ×3 (06:13→16:42)
[2023-03-03 06:37] LABS: Basophils # (auto) 0.1 10 ^3/uL (0-0.2); Basophils % (auto) 1.2 % (0.0-2.0); Eosinophils # (auto) 0.2 10 ^3/uL (0-0.8); Eosinophils % (auto) 2.8 % (0.0-7.0); Hematocrit 33.6 % (41.0-53.0); Hemoglobin 10.6 g/dL (13.5-17.5); Lymphocytes # (auto) 2.9 10 ^3/uL (0.4-5.4); Lymphocytes % (auto) 38.2 % (10.0-50.0); Mean Corpuscular Hemoglobin 28.5 pg (28.0-32.0); Mean Corpuscular Hgb Conc. 31.5 g/dL (32.0-36.0); Mean Corpuscular Volume 90.7 fL (80.0-100.0); Monocytes # (auto) 0.4 10 ^3/uL (0-1.3); Monocytes % (auto) 5.4 % (0.0-12.0); Neutrophils # (auto) 3.9 10 ^3/uL (1.6-8.6); Neutrophils % (auto) 52.4 % (37.0-80.0); Nucleated Red Blood Cells % 0.1 %; Red Blood Cells 3.71 10^6/uL (4.5-5.90); Red Cell Distribution Width 17.5 % (11.8-14.3); White Blood Cell 7.5 10^3/uL (4.4-10.8)
[2023-03-03 06:47] LABS: Chloride 109 mmol/L (98-107); Potassium 4.1 mmol/L (3.5-5.1); Sodium 136 mmol/L (136-145)
[2023-03-03 06:48] LABS: Anion Gap 6 (5-15); Calcium 8.8 mg/dL (8.7-10.4); Carbon Dioxide 21 mmol/L (20-30)
[2023-03-03 06:53] LABS: Blood Urea Nitrogen 20 mg/dL (9-23); Glucose 93 mg/dL (74-106)
[2023-03-03] MEDS: LINEZOLID 600MG/300ML 300 ML IV SCH (08:00)
[2023-03-03 09:00] VITALS: BP 103/67; PULSE 83; RESP 18; TEMP 99.2; O2SAT 100
[2023-03-03] MEDS: APIXABAN 5 MG TAB PO SCH (10:02)
[2023-03-03] MEDS: MEROPENEM 1GM IVPB 100 ML IV SCH (10:02)
[2023-03-03 13:00] VITALS: BP 120/52; PULSE 84; RESP 17; TEMP 98.1; O2SAT 100
[2023-03-03] MEDS ORDERED: LINE1TAB10 PO (13:09)
[2023-03-03 17:00] VITALS: BP 122/76; PULSE 84; RESP 18; TEMP 98; O2SAT 100
== END 2023-03-03 20:30 | disposition home or self-care (01) | DRG 689 ==
LOC: ER 02:32 → EDBD 02:32 → OVERFLOW 07:19 → WEST WING 12:26
PROVIDERS: ADMIT Internal Medicine Pulmonary Disease; ATTEND Internal Medicine Pulmonary Disease
DX: N30.01 Acute cystitis with hematuria (principal); N17.0 Acute kidney failure with tubular necrosis; E87.20 Acidosis, unspecified; R78.81 Bacteremia; I69.354 Hemiplegia and hemiparesis following cerebral infarction affecting left non-dominant side; N10 Acute pyelonephritis; N18.4 Chronic kidney disease, stage 4 (severe); N13.8 Other obstructive and reflux uropathy; N20.0 Calculus of kidney; D63.1 Anemia in chronic kidney disease; E11.22 Type 2 diabetes mellitus with diabetic chronic kidney disease; I12.9 Hypertensive chronic kidney disease with stage 1 through stage 4 chronic kidney disease, or unspecified chronic kidney disease; N21.0 Calculus in bladder; R80.9 Proteinuria, unspecified; N40.1 Benign prostatic hyperplasia with lower urinary tract symptoms; E78.5 Hyperlipidemia, unspecified; Z79.899 Other long term (current) drug therapy; B95.62 Methicillin resistant Staphylococcus aureus infection as the cause of diseases classified elsewhere; Z83.3 Family history of diabetes mellitus; Z87.440 Personal history of urinary (tract) infections; Z87.442 Personal history of urinary calculi; Z79.84 Long term (current) use of oral hypoglycemic drugs
CPT/HCPCS: 36415; 74176; 80048; 80053; 81001; 82306; 82570; 82962; 83605; 83690; 83970; 84100; 84154; 84156; 84300; 84484; 85025; 85610; 85730; 86850; 86900; 86901; 87040; 87077; 87086; 87186; 93005; 93306; 96361; 96365; 96375; G0378; J0696; J1815; J2185; J2405; J2543

== ENCOUNTER 2023-03-16 14:26 | Inpatient (IN) | payer OTHER ==
[~2023-03-16] VITALS: Ht 188 cm; Wt 87.5 kg
[~2023-03-16 14:26] MED LIST changes: +LINE1TAB10 PO
[2023-03-16 14:35] VITALS: PULSE 120; RESP 21; O2SAT 95
[2023-03-16] MEDS ORDERED: SODIUM CHLORIDE 0.9% 1,000 ML IV ONE ×3 (15:15→19:00)
[2023-03-16] MEDS ORDERED: SODIUM CHLORIDE 0.9% 500 ML IV ONE (15:15)
[2023-03-16] MEDS ORDERED: PIPERACILLIN-TAZOB 3.375GM 100 ML IV ONE (15:15)
[2023-03-16] MEDS ORDERED: VANCOMYCIN PER PHARMACY 0 MG IV SCH ×2 (15:15→17:15)
[2023-03-16] MEDS ORDERED: VANCOMYCIN 1GM/250ML 250 ML IV ONE (15:30)
[2023-03-16 15:40] LABS: Basophils # (auto) 0.1 10 ^3/uL (0-0.2); Basophils % (auto) 0.9 % (0.0-2.0); Eosinophils # (auto) 0.3 10 ^3/uL (0-0.8); Eosinophils % (auto) 2.8 % (0.0-7.0); Hematocrit 32.5 % (41.0-53.0); Hemoglobin 10.3 g/dL (13.5-17.5); Lymphocytes # (auto) 2.6 10 ^3/uL (0.4-5.4); Lymphocytes % (auto) 27.3 % (10.0-50.0); Mean Corpuscular Hemoglobin 28.6 pg (28.0-32.0); Mean Corpuscular Hgb Conc. 31.6 g/dL (32.0-36.0); Mean Corpuscular Volume 90.6 fL (80.0-100.0); Monocytes # (auto) 0.7 10 ^3/uL (0-1.3); Monocytes % (auto) 7.7 % (0.0-12.0); Neutrophils # (auto) 5.9 10 ^3/uL (1.6-8.6); Neutrophils % (auto) 61.3 % (37.0-80.0); Nucleated Red Blood Cells % 0.1 %; Red Blood Cells 3.59 10^6/uL (4.5-5.90); Red Cell Distribution Width 17.5 % (11.8-14.3); White Blood Cell 9.6 10^3/uL (4.4-10.8)
[2023-03-16 15:47] LABS: Alanine Aminotransferase 13 U/L (7-40); Albumin 3.4 g/dL (3.2-4.8); Alkaline Phosphatase 52 U/L (46-116); Anion Gap 7 (5-15); Aspartate Aminotransferase 15 U/L (13-40); BUN/Creatinine Ratio 7.1 (10.0-20.0); Blood Urea Nitrogen 24 mg/dL (9-23); Calcium 8.8 mg/dL (8.7-10.4); Carbon Dioxide 21 mmol/L (20-30); Chloride 111 mmol/L (98-107); Glucose 101 mg/dL (74-106); Potassium 3.9 mmol/L (3.5-5.1); Sodium 139 mmol/L (136-145)
[2023-03-16 15:48] LABS: Bilirubin, Total 0.2 mg/dL (0.2-1.0); Total Protein 6.1 g/dL (5.7-8.2)
[2023-03-16 15:58] LABS: Lactic Acid w/Reflex 2.5 mmol/L (0.4-2.0)
[2023-03-16] MEDS ORDERED: CEFEPIME 1GM/ 50ML 50 ML IV ONE (17:15)
[2023-03-16] MEDS ORDERED: NITROGLYCERIN 0.4 MG SL TAB SL PRN (17:30)
[2023-03-16] MEDS ORDERED: ACETAMINOPHEN 325 MG TAB PO PRN (17:30)
[2023-03-16] MEDS ORDERED: DEXTROSE (50%) 50ML SYRG IV PRN (17:30)
[2023-03-16] MEDS ORDERED: HYDROcodone-ACET 5/325MG TAB PO PRN (17:30)
[2023-03-16] MEDS ORDERED: MORPHINE SULFATE INJ 2 MG/ml SYRG IV PRN (17:30)
[2023-03-16] MEDS: SODIUM CHLORIDE 0.9% 1,000 ML IV SCH (18:51)
[2023-03-16 19:17] LABS: Erythrocyte Sedimentation Rate 20 mm/hr (0-20)
[2023-03-16 19:23] LABS: Urine Bacteria NONE SEEN /hpf (None Seen); Urine Blood 3+ /uL (Negative); Urine Clarity HAZY (Clear); Urine Color Yellow (Yellow); Urine Mucus FEW (None Seen); Urine Protein, UAD TRACE (Negative); Urine Specific Gravity 1.014 (1.001-1.035); Urine Urobilinogen Normal (Negative); Urine WBC 67 /hpf (0 - 3)
[2023-03-16 19:39] LABS: Protein, Urine 30.3 mg/dL (0.0-11.9)
[2023-03-16 19:42] LABS: Creatinine, Urine 91.99 mg/dL (30.0-125.0)
[2023-03-16 20:10] VITALS: PULSE 104; RESP 18; O2SAT 93
[2023-03-16 21:44] LABS: Lactic Acid w/Reflex 3.6 mmol/L (0.4-2.0)
[2023-03-16] MEDS: ACCU-CHEK COMFORT CURVE STRIP VI SCH (22:00)
[2023-03-16] MEDS: InsuLIN REG 1unit/0.01ml Soln (100units/ml) SC SCH (22:00)
[2023-03-16] MEDS: ASCORBIC ACID 500 MG TAB PO SCH (22:00)
[2023-03-16] MEDS: HYDROCORTISONE 2.5% TOPICAL CREAM 30GM TUBE TOP SCH (22:00)
[2023-03-16 23:54] VITALS: BP 125/78; PULSE 113; RESP 17; TEMP 98.1; O2SAT 99
[2023-03-17] MEDS: SODIUM CHLORIDE 0.9% 1,000 ML IV SCH (04:33)
[2023-03-17 05:50] LABS: Basophils # (auto) 0.1 10 ^3/uL (0-0.2); Basophils % (auto) 0.8 % (0.0-2.0); Eosinophils # (auto) 0.3 10 ^3/uL (0-0.8); Hematocrit 27.2 % (41.0-53.0); Hemoglobin 8.9 g/dL (13.5-17.5); Lymphocytes # (auto) 2.4 10 ^3/uL (0.4-5.4); Lymphocytes % (auto) 28.9 % (10.0-50.0); Mean Corpuscular Hgb Conc. 32.6 g/dL (32.0-36.0); Mean Corpuscular Volume 88.8 fL (80.0-100.0); Monocytes # (auto) 0.7 10 ^3/uL (0-1.3); Monocytes % (auto) 8.5 % (0.0-12.0); Neutrophils # (auto) 4.8 10 ^3/uL (1.6-8.6); Neutrophils % (auto) 58.8 % (37.0-80.0); Red Blood Cells 3.06 10^6/uL (4.5-5.90); White Blood Cell 8.3 10^3/uL (4.4-10.8)
[2023-03-17] MEDS: InsuLIN REG 1unit/0.01ml Soln (100units/ml) SC SCH ×4 (05:56→23:13)
[2023-03-17] MEDS: HYDROCORTISONE 2.5% TOPICAL CREAM 30GM TUBE TOP SCH ×3 (06:00→22:00)
[2023-03-17 06:04] LABS: Alanine Aminotransferase 14 U/L (7-40); Albumin 2.6 g/dL (3.2-4.8); Alkaline Phosphatase 32 U/L (46-116); Anion Gap 8 (5-15); Aspartate Aminotransferase 12 U/L (13-40); BUN/Creatinine Ratio 10.4 (10.0-20.0); Blood Urea Nitrogen 32 mg/dL (9-23); Calcium 7.8 mg/dL (8.5-10.1); Carbon Dioxide 19 mmol/L (20-30); Chloride 117 mmol/L (98-107); Glucose 62 mg/dL (74-106); Sodium 144 mmol/L (136-145)
[2023-03-17 06:05] LABS: Bilirubin, Total 0.3 mg/dL (0.2-1.0); Total Protein 4.5 g/dL (5.7-8.2)
[2023-03-17] MEDS: ACCU-CHEK COMFORT CURVE STRIP VI SCH ×4 (06:53→23:13)
[2023-03-17 08:00] VITALS: PULSE 88; PULSE 89; RESP 18
[2023-03-17 09:00] VITALS: BP 108/68; PULSE 89; RESP 16; TEMP 97.7; O2SAT 99
[2023-03-17] MEDS: ASCORBIC ACID 500 MG TAB PO SCH ×2 (09:58→23:11)
[2023-03-17] MEDS: ZINC SULFATE 220mg CAP or TAB PO SCH (09:58)
[2023-03-17] MEDS: MULTIPLE VITAMIN TAB PO SCH (09:58)
[2023-03-17] MEDS ORDERED: ENOXAPARIN SOD 30 MG/0.3 ML SYRINGE SC SCH (10:00)
[2023-03-17 12:28] LABS: Magnesium 1.6 mg/dL (1.6-2.6)
[2023-03-17 12:30] LABS: Phosphorus 2.8 mg/dL (2.4-5.1)
[2023-03-17] MEDS: SODIUM BICARBONATE 50ML VIAL 50 ML in SOD CHL 0.45% 1,000 ML IV SCH ×2 (12:58→21:15)
[2023-03-17 13:00] VITALS: BP 123/80; PULSE 84; RESP 20; TEMP 98.3; O2SAT 96
[2023-03-17 17:00] VITALS: BP 130/79; PULSE 84; RESP 22; TEMP 98.3; O2SAT 100
[2023-03-17] MEDS ORDERED: VANCOMYCIN 1GM/250ML 250 ML IV ONE (17:00)
[2023-03-17] MEDS ORDERED: CEFEPIME 1GM/ 50ML 50 ML IV SCH (18:00)
[2023-03-17 20:00] VITALS: PULSE 108
[2023-03-17 22:00] VITALS: BP 120/75; PULSE 101; RESP 18; TEMP 98.2; O2SAT 98
[2023-03-17] MEDS: NYSTATIN TOPICAL POWDER 15GM TOP SCH (22:00)
[2023-03-18] VITALS (7 sets, daily range): BP systolic 118–146; BP diastolic 76–86; PULSE 82–104; RESP 16–20; TEMP 97.5–98.6; O2SAT 96–100
[2023-03-18] MEDS: SODIUM BICARBONATE 50ML VIAL 50 ML in SOD CHL 0.45% 1,000 ML IV SCH ×2 (02:00→18:08)
[2023-03-18] MEDS: HYDROCORTISONE 2.5% TOPICAL CREAM 30GM TUBE TOP SCH ×3 (05:48→21:28)
[2023-03-18] MEDS: ACCU-CHEK COMFORT CURVE STRIP VI SCH ×4 (05:48→21:33)
[2023-03-18] MEDS: InsuLIN REG 1unit/0.01ml Soln (100units/ml) SC SCH ×4 (05:48→21:34)
[2023-03-18] MEDS: NYSTATIN TOPICAL POWDER 15GM TOP SCH ×2 (10:00→21:29)
[2023-03-18] MEDS: ZINC SULFATE 220mg CAP or TAB PO SCH (10:16)
[2023-03-18] MEDS: ASCORBIC ACID 500 MG TAB PO SCH ×2 (10:16→21:26)
[2023-03-18] MEDS: MULTIPLE VITAMIN TAB PO SCH (10:16)
[2023-03-18] MEDS: cefTRIAXone 1GM/50ML D5W 50 ML IV SCH (10:17)
[2023-03-19] VITALS (7 sets, daily range): BP systolic 120–141; BP diastolic 68–86; PULSE 80–113; RESP 15–17; TEMP 97.9–98.3; O2SAT 98–100
[2023-03-19] MEDS: SODIUM BICARBONATE 50ML VIAL 50 ML in SOD CHL 0.45% 1,000 ML IV SCH ×2 (04:45→15:33)
[2023-03-19] MEDS: HYDROCORTISONE 2.5% TOPICAL CREAM 30GM TUBE TOP SCH ×3 (06:00→21:38)
[2023-03-19] MEDS: InsuLIN REG 1unit/0.01ml Soln (100units/ml) SC SCH ×4 (06:01→21:37)
[2023-03-19] MEDS: ACCU-CHEK COMFORT CURVE STRIP VI SCH ×4 (06:01→21:25)
[2023-03-19] MEDS: cefTRIAXone 1GM/50ML D5W 50 ML IV SCH (08:54)
[2023-03-19] MEDS: ASCORBIC ACID 500 MG TAB PO SCH (08:54)
[2023-03-19] MEDS: MULTIPLE VITAMIN TAB PO SCH (08:54)
[2023-03-19] MEDS: ZINC SULFATE 220mg CAP or TAB PO SCH (08:54)
[2023-03-19] MEDS: NYSTATIN TOPICAL POWDER 15GM TOP SCH ×2 (08:59→21:38)
[2023-03-19 15:24] LABS: Chloride 114 mmol/L (98-107); Potassium 4.2 mmol/L (3.5-5.1); Sodium 145 mmol/L (136-145)
[2023-03-19 15:25] LABS: Anion Gap 7 (5-15); Calcium 8.6 mg/dL (8.7-10.4); Carbon Dioxide 24 mmol/L (20-30)
[2023-03-19 15:30] LABS: Blood Urea Nitrogen 25 mg/dL (9-23)
[2023-03-19 15:31] LABS: Glucose 173 mg/dL (74-106)
[2023-03-19] MEDS: LACTATED RINGER'S 1,000 ML IV SCH (23:14)
[2023-03-20] VITALS (8 sets, daily range): BP systolic 123–158; BP diastolic 67–79; PULSE 85–114; RESP 14–18; TEMP 97.8–98.6; O2SAT 88–100
[2023-03-20] MEDS: HYDROCORTISONE 2.5% TOPICAL CREAM 30GM TUBE TOP SCH ×3 (06:00→21:25)
[2023-03-20] MEDS: ACCU-CHEK COMFORT CURVE STRIP VI SCH ×4 (06:27→22:00)
[2023-03-20] MEDS: InsuLIN REG 1unit/0.01ml Soln (100units/ml) SC SCH ×4 (06:27→21:24)
[2023-03-20] MEDS: cefTRIAXone 1GM/50ML D5W 50 ML IV SCH (08:43)
[2023-03-20] MEDS: LACTATED RINGER'S 1,000 ML IV SCH ×2 (08:43→22:25)
[2023-03-20] MEDS: MULTIPLE VITAMIN TAB PO SCH (08:44)
[2023-03-20] MEDS: NYSTATIN TOPICAL POWDER 15GM TOP SCH ×2 (08:44→21:25)
[2023-03-20 11:28] LABS: Chloride 113 mmol/L (98-107); Potassium 4.5 mmol/L (3.5-5.1); Sodium 145 mmol/L (136-145)
[2023-03-20 11:29] LABS: Anion Gap 7 (5-15); Calcium 8.4 mg/dL (8.5-10.1); Carbon Dioxide 25 mmol/L (20-30)
[2023-03-20 11:34] LABS: BUN/Creatinine Ratio 9.1 (10.0-20.0); Blood Urea Nitrogen 22 mg/dL (9-23); Glucose 109 mg/dL (74-106)
[2023-03-21 05:00] VITALS: BP 155/75; PULSE 83; RESP 16; TEMP 98.4; O2SAT 100
[2023-03-21] MEDS: HYDROCORTISONE 2.5% TOPICAL CREAM 30GM TUBE TOP SCH ×3 (06:00→21:08)
[2023-03-21] MEDS: InsuLIN REG 1unit/0.01ml Soln (100units/ml) SC SCH ×4 (06:38→21:01)
[2023-03-21] MEDS: ACCU-CHEK COMFORT CURVE STRIP VI SCH ×4 (06:38→22:00)
[2023-03-21 08:00] VITALS: PULSE 80
[2023-03-21 09:00] VITALS: BP 161/99; PULSE 82; RESP 18; TEMP 97.4; O2SAT 100
[2023-03-21] MEDS: NYSTATIN TOPICAL POWDER 15GM TOP SCH (10:00)
[2023-03-21] MEDS: cefTRIAXone 1GM/50ML D5W 50 ML IV SCH (10:01)
[2023-03-21] MEDS: MULTIPLE VITAMIN TAB PO SCH (10:01)
[2023-03-21] MEDS: LACTATED RINGER'S 1,000 ML IV SCH (11:45)
[2023-03-21 13:00] VITALS: BP 146/79; PULSE 83; RESP 18; TEMP 97.7; O2SAT 100
[2023-03-21 17:00] VITALS: BP 135/74; PULSE 79; RESP 18; TEMP 97.5; O2SAT 91
[2023-03-21 20:00] VITALS: PULSE 109; RESP 18
[2023-03-21] MEDS: NYSTATIN TOPICAL CREAM 15GM TOP SCH (21:08)
[2023-03-22] VITALS (8 sets, daily range): BP systolic 129–154; BP diastolic 71–88; PULSE 68–92; RESP 15–19; TEMP 97.1–98.5; O2SAT 94–100
[2023-03-22 00:08] LABS: INR 1.09 (0.9-1.15); Prothrombin Time 11.4 sec (9.3-11.8)
[2023-03-22] MEDS: LACTATED RINGER'S 1,000 ML IV SCH (01:05)
[2023-03-22] MEDS: HYDROCORTISONE 2.5% TOPICAL CREAM 30GM TUBE TOP SCH ×3 (06:22→22:02)
[2023-03-22] MEDS: InsuLIN REG 1unit/0.01ml Soln (100units/ml) SC SCH ×4 (06:22→22:03)
[2023-03-22] MEDS: ACCU-CHEK COMFORT CURVE STRIP VI SCH ×4 (07:00→21:56)
[2023-03-22] MEDS: MULTIPLE VITAMIN TAB PO SCH (08:12)
[2023-03-22] MEDS: cefTRIAXone 1GM/50ML D5W 50 ML IV SCH (08:55)
[2023-03-22] MEDS: NYSTATIN TOPICAL CREAM 15GM TOP SCH ×2 (09:04→22:02)
[2023-03-22] MEDS: D5W/SOD CHL 0.45% 1,000 ML IV SCH ×2 (11:05→20:45)
[2023-03-22] MEDS ORDERED: IOHEXOL 300 MG/ML 100ML BOTTLE IJ ONE (14:11)
[2023-03-22] MEDS ORDERED: PHENYLEPHRINE HCL 10 MG/ML VL IV ONE (14:20)
[2023-03-22] MEDS ORDERED: PROPOFOL 10 MG/ML 20 ML IV ONE ×2 (14:53→17:15)
[2023-03-22] MEDS ORDERED: LIDOCAINE 2% (LOCAL ANESTH.) PF 5ml SDV ONE (14:54)
[2023-03-22] MEDS ORDERED: fentaNYL CITRATE 100 MCG/2 ML VL ONE (14:54)
[2023-03-22] MEDS ORDERED: DexAMETHasone SOD PHOS 10MG/1ML VIAL INJ ONE (14:54)
[2023-03-22] MEDS ORDERED: GLYCOPYRROLATE 0.2 MG/ML 1ML VIAL ONE (14:54)
[2023-03-22] MEDS ORDERED: ONDANSETRON HCL 4 MG/2 ML VIAL ONE (14:54)
[2023-03-22] MEDS ORDERED: LIDOCAINE 2% JELLY 11ml (GLYDO) ONE (15:51)
[2023-03-22] MEDS ORDERED: ESMOLOL HCL 10 ML IV ONE (17:50)
[2023-03-22] MEDS ORDERED: ePHEDrine SULFATE 50 MG/ML AMP IV PRN (18:15)
[2023-03-22] MEDS ORDERED: ONDANSETRON HCL 4 MG/2 ML VIAL IV PRN (18:15)
[2023-03-22] MEDS ORDERED: NALOXONE HCL 0.4 MG/ML VIAL IV PRN (18:15)
[2023-03-22] MEDS ORDERED: hydrALAZINE HCL 20 MG/ML VL IV PRN (18:15)
[2023-03-22] MEDS ORDERED: HYDROmorphone HCL 2 MG/ML VL/or syr IV PRN (18:15)
[2023-03-22] MEDS ORDERED: FLUMAZENIL 0.1 MG/ML INJ 10ML MDV IV PRN (18:15)
[2023-03-22] MEDS ORDERED: fentaNYL CITRATE 100 MCG/2 ML VL IV PRN (18:15)
[2023-03-22] MEDS: LABETALOL HCL 5 MG/ML 4ML SYRINGE IV PRN ×2 (18:29→18:47)
[2023-03-22 22:54] LABS: Chloride 114 mmol/L (98-107); Potassium 4.4 mmol/L (3.5-5.1); Sodium 142 mmol/L (136-145)
[2023-03-22 22:55] LABS: Anion Gap 6 (5-15); Carbon Dioxide 22 mmol/L (20-30)
[2023-03-22 22:56] LABS: Calcium 8.5 mg/dL (8.7-10.4)
[2023-03-22 23:00] LABS: BUN/Creatinine Ratio 8.4 (10.0-20.0); Blood Urea Nitrogen 20 mg/dL (9-23)
[2023-03-22 23:01] LABS: Glucose 246 mg/dL (74-106)
[2023-03-23] VITALS (7 sets, daily range): BP systolic 133–161; BP diastolic 73–88; PULSE 74–110; RESP 17–19; TEMP 97.3–98.3; O2SAT 97–100
[2023-03-23] MEDS: D5W/SOD CHL 0.45% 1,000 ML IV SCH ×2 (05:20→16:45)
[2023-03-23] MEDS: HYDROCORTISONE 2.5% TOPICAL CREAM 30GM TUBE TOP SCH ×3 (06:21→21:50)
[2023-03-23] MEDS: ACCU-CHEK COMFORT CURVE STRIP VI SCH ×4 (06:21→22:13)
[2023-03-23] MEDS: InsuLIN REG 1unit/0.01ml Soln (100units/ml) SC SCH ×4 (06:25→21:51)
[2023-03-23] MEDS: MULTIPLE VITAMIN TAB PO SCH (08:46)
[2023-03-23] MEDS: cefTRIAXone 1GM/50ML D5W 50 ML IV SCH (08:46)
[2023-03-23 09:54] LABS: Basophils # (auto) 0.1 10 ^3/uL (0-0.2); Basophils % (auto) 0.5 % (0.0-2.0); Eosinophils # (auto) 0 10 ^3/uL (0-0.8); Eosinophils % (auto) 0.2 % (0.0-7.0); Hematocrit 28.1 % (41.0-53.0); Lymphocytes % (auto) 21.6 % (10.0-50.0); Mean Corpuscular Hemoglobin 29.1 pg (28.0-32.0); Mean Corpuscular Hgb Conc. 31.9 g/dL (32.0-36.0); Mean Corpuscular Volume 91.3 fL (80.0-100.0); Monocytes # (auto) 0.9 10 ^3/uL (0-1.3); Monocytes % (auto) 6.2 % (0.0-12.0); Neutrophils % (auto) 71.5 % (37.0-80.0); Nucleated Red Blood Cells % 0.1 %; Red Blood Cells 3.08 10^6/uL (4.5-5.90); Red Cell Distribution Width 18.6 % (11.8-14.3); White Blood Cell 13.9 10^3/uL (4.4-10.8)
[2023-03-23 10:21] LABS: Alanine Aminotransferase 21 U/L (7-40); Albumin 3.1 g/dL (3.2-4.8); Alkaline Phosphatase 41 U/L (46-116); Anion Gap 8 (5-15); Aspartate Aminotransferase 12 U/L (13-40); BUN/Creatinine Ratio 8.8 (10.0-20.0); Blood Urea Nitrogen 22 mg/dL (9-23); Calcium 8.6 mg/dL (8.5-10.1); Carbon Dioxide 24 mmol/L (20-30); Chloride 112 mmol/L (98-107); Glucose 154 mg/dL (74-106); Potassium 4.3 mmol/L (3.5-5.1); Sodium 144 mmol/L (136-145)
[2023-03-23 10:22] LABS: Bilirubin, Total 0.2 mg/dL (0.2-1.0); Total Protein 5.5 g/dL (5.7-8.2)
[2023-03-23] MEDS: NYSTATIN TOPICAL CREAM 15GM TOP SCH ×2 (12:10→21:50)
[2023-03-24] VITALS (7 sets, daily range): BP systolic 130–183; BP diastolic 54–95; PULSE 73–108; RESP 17–20; TEMP 98.3–98.7; O2SAT 96–100
[2023-03-24] MEDS: D5W/SOD CHL 0.45% 1,000 ML IV SCH ×3 (02:45→22:45)
[2023-03-24 06:13] LABS: Alanine Aminotransferase 18 U/L (7-40); Albumin 2.8 g/dL (3.2-4.8); Alkaline Phosphatase 38 U/L (46-116); Anion Gap 9 (5-15); Aspartate Aminotransferase 11 U/L (13-40); BUN/Creatinine Ratio 7.2 (10.0-20.0); Bilirubin, Total 0.3 mg/dL (0.2-1.0); Blood Urea Nitrogen 19 mg/dL (9-23); Calcium 8.5 mg/dL (8.5-10.1); Carbon Dioxide 21 mmol/L (20-30); Chloride 115 mmol/L (98-107); Glucose 90 mg/dL (74-106); Potassium 4.1 mmol/L (3.5-5.1); Sodium 145 mmol/L (136-145); Total Protein 5.1 g/dL (5.7-8.2)
[2023-03-24] MEDS: ACCU-CHEK COMFORT CURVE STRIP VI SCH ×4 (06:15→22:01)
[2023-03-24] MEDS: InsuLIN REG 1unit/0.01ml Soln (100units/ml) SC SCH ×4 (06:15→22:05)
[2023-03-24] MEDS: HYDROCORTISONE 2.5% TOPICAL CREAM 30GM TUBE TOP SCH ×3 (06:15→22:01)
[2023-03-24] MEDS: MULTIPLE VITAMIN TAB PO SCH (09:56)
[2023-03-24] MEDS: cefTRIAXone 1GM/50ML D5W 50 ML IV SCH (09:57)
[2023-03-24] MEDS: NYSTATIN TOPICAL CREAM 15GM TOP SCH ×2 (10:00→22:01)
[2023-03-25] MEDS: HYDROCORTISONE 2.5% TOPICAL CREAM 30GM TUBE TOP SCH ×2 (06:00→14:00)
[2023-03-25] MEDS: ACCU-CHEK COMFORT CURVE STRIP VI SCH ×3 (07:00→17:00)
[2023-03-25] MEDS: InsuLIN REG 1unit/0.01ml Soln (100units/ml) SC SCH ×3 (07:00→17:00)
[2023-03-25] MEDS: D5W/SOD CHL 0.45% 1,000 ML IV SCH (08:45)
[2023-03-25] MEDS: cefTRIAXone 1GM/50ML D5W 50 ML IV SCH ×2 (09:00→10:00)
[2023-03-25] MEDS: NYSTATIN TOPICAL CREAM 15GM TOP SCH (10:00)
[2023-03-25] MEDS: MULTIPLE VITAMIN TAB PO SCH (10:00)
[2023-03-25] MEDS ORDERED: CIPR-173 PO (11:35)
[2023-03-25] MEDS ORDERED: TRAM50TA2 PO (11:35)
[2023-03-25 16:40] VITALS: BP 150/87; PULSE 90; RESP 19; TEMP 98; O2SAT 96
== END 2023-03-25 18:48 | disposition home or self-care (01) | DRG 853 ==
LOC: ER 14:26 → EDBD 14:26 → TELE 17:23 → TELE-CENTR 21:38 → CENTRAL 03-24 14:54
PROVIDERS: ADMIT Nurse Practitioner Family; ATTEND Family Medicine
PROC: 0TC18ZZ Extirpation of Matter from Left Kidney, Via Natural or Artificial Opening Endoscopic (ICD-10-PCS; 2023-03-22)
PROC: BT121ZZ Fluoroscopy of Left Kidney using Low Osmolar Contrast (ICD-10-PCS; 2023-03-22)
PROC: 0TCB8ZZ Extirpation of Matter from Bladder, Via Natural or Artificial Opening Endoscopic (ICD-10-PCS; principal; 2023-03-22 16:11)
PROC: 0T778DZ Dilation of Left Ureter with Intraluminal Device, Via Natural or Artificial Opening Endoscopic (ICD-10-PCS; 2023-03-22 16:11)
DX: A41.9 Sepsis, unspecified organism (principal); N17.0 Acute kidney failure with tubular necrosis; E87.20 Acidosis, unspecified; N39.0 Urinary tract infection, site not specified; N18.4 Chronic kidney disease, stage 4 (severe); I69.354 Hemiplegia and hemiparesis following cerebral infarction affecting left non-dominant side; D63.1 Anemia in chronic kidney disease; E11.22 Type 2 diabetes mellitus with diabetic chronic kidney disease; E78.00 Pure hypercholesterolemia, unspecified; I12.9 Hypertensive chronic kidney disease with stage 1 through stage 4 chronic kidney disease, or unspecified chronic kidney disease; F17.210 Nicotine dependence, cigarettes, uncomplicated; N21.0 Calculus in bladder; N20.0 Calculus of kidney; L30.9 Dermatitis, unspecified; R31.0 Gross hematuria; N40.0 Benign prostatic hyperplasia without lower urinary tract symptoms; Z74.01 Bed confinement status; Z83.3 Family history of diabetes mellitus; Z87.442 Personal history of urinary calculi
CPT/HCPCS: 36415; 71045; 74018; 74176; 76775; 80048; 80053; 80202; 81001; 82306; 82565; 82570; 82962; 83036; 83605; 83735; 83930; 83970; 84100; 84156; 84300; 85025; 85610; 85652; 85730; 86850; 86900; 86901; 87040; 87086; 93005; 96365; 96367; 96368; 99291; G0378; J0696; J1100; J1815; J2001; J2405; J2543; J2704; J3490

== ENCOUNTER 2023-04-02 20:07 | Inpatient (IN) | payer OTHER ==
[~2023-04-02] VITALS: Ht 185.4 cm; Wt 79.3 kg
[~2023-04-02 20:07] MED LIST changes: +CIPR-173 PO; +TRAM50TA2 PO
[2023-04-02 21:10] VITALS: PULSE 105; RESP 16; O2SAT 99
[2023-04-02] MEDS ORDERED: DEXTROSE (50%) 50ML SYRG IV ONE (21:30)
[2023-04-02 21:37] LABS: Basophils # (auto) 0.1 10 ^3/uL (0-0.2); Basophils % (auto) 0.8 % (0.0-2.0); Eosinophils # (auto) 0 10 ^3/uL (0-0.8); Eosinophils % (auto) 0.1 % (0.0-7.0); Mean Corpuscular Volume 90.7 fL (80.0-100.0); Monocytes # (auto) 0.5 10 ^3/uL (0-1.3)
[2023-04-02 21:40] LABS: Hematocrit 31.3 % (41.0-53.0); Lymphocytes # (auto) 0.9 10 ^3/uL (0.4-5.4); Lymphocytes % (auto) 9.2 % (10.0-50.0); Mean Corpuscular Hemoglobin 28.9 pg (28.0-32.0); Mean Corpuscular Hgb Conc. 31.9 g/dL (32.0-36.0); Monocytes % (auto) 5.2 % (0.0-12.0); Neutrophils # (auto) 7.9 10 ^3/uL (1.6-8.6); Neutrophils % (auto) 84.7 % (37.0-80.0); Red Blood Cells 3.45 10^6/uL (4.5-5.90); Red Cell Distribution Width 17.8 % (11.8-14.3); White Blood Cell 9.3 10^3/uL (4.4-10.8)
[2023-04-02 21:55] LABS: Alanine Aminotransferase 18 U/L (7-40); Albumin 3.3 g/dL (3.2-4.8); Alkaline Phosphatase 59 U/L (46-116); Anion Gap 8 (5-15); Aspartate Aminotransferase 16 U/L (13-40); BUN/Creatinine Ratio 5.7 (10.0-20.0); Bilirubin, Total 0.4 mg/dL (0.2-1.0); Blood Alcohol 4.6 mg/dL (<10); Blood Urea Nitrogen 17 mg/dL (9-23); Calcium 8.2 mg/dL (8.7-10.4); Carbon Dioxide 23 mmol/L (20-30); Chloride 109 mmol/L (98-107); Lipase 39 U/L (12-53); Magnesium 1.7 mg/dL (1.6-2.6); Potassium 3.4 mmol/L (3.5-5.1); Sodium 140 mmol/L (136-145); Total Protein 5.9 g/dL (5.7-8.2)
[2023-04-02 21:58] LABS: Glucose 45 mg/dL (74-106)
[2023-04-02 22:02] LABS: INR 1.1 (0.9-1.15); Partial Thromboplastin Time 33.9 SEC (24.5-34.5); Prothrombin Time 11.5 sec (9.3-11.8)
[2023-04-03] MEDS ORDERED: D5W/SOD CHL 0.45% 1,000 ML IV ONE ×2 (01:30→05:45)
[2023-04-03] MEDS ORDERED: DEXTROSE (50%) 50ML SYRG IV ONE ×2 (01:30→05:45)
[2023-04-03 02:16] LABS: Urine WBC None Seen /hpf (0 - 3)
[2023-04-03 03:02] LABS: Amphetamine Screen, Urine Neg (NEGATIVE); Barbiturate Scree,Urine Neg (NEGATIVE); Benzodiazephine Screen, Urine Neg (NEGATIVE); Cannabinoid Screen, Urine Neg (NEGATIVE); Cocaine Screen, Urine Neg (NEGATIVE); Opiate Scree,Urine Neg (NEGATIVE); Phencyclidine Screen, Urine Neg (NEGATIVE)
[2023-04-03 03:10] LABS: Urine Bacteria NONE SEEN /hpf (None Seen); Urine Blood 1+ /uL (Negative); Urine Clarity CLOUDY (Clear); Urine Color Brown (Yellow); Urine Protein, UAD 1+ (Negative); Urine Urobilinogen Normal (Negative)
[2023-04-03] MEDS ORDERED: PIPERACILLIN-TAZOB 3.375GM 100 ML IV ONE (03:30)
[2023-04-03] MEDS ORDERED: ACETAMINOPHEN 325 MG TAB PO PRN (04:45)
[2023-04-03] MEDS ORDERED: DEXTROSE (50%) 50ML SYRG IV PRN (04:45)
[2023-04-03] MEDS ORDERED: ONDANSETRON HCL 4 MG/2 ML VIAL IV PRN (04:45)
[2023-04-03] MEDS ORDERED: NITROGLYCERIN 0.4 MG SL TAB SL PRN (04:45)
[2023-04-03] MEDS ORDERED: HYDROcodone-ACET 5/325MG TAB PO PRN (04:45)
[2023-04-03] MEDS ORDERED: POTASSIUM CHL 20 Meq TABLET PO ONE (04:45)
[2023-04-03] MEDS ORDERED: DOCUSATE SOD 100 MG CAP PO PRN (04:45)
[2023-04-03] MEDS ORDERED: MORPHINE SULFATE INJ 2 MG/ml SYRG IV PRN (04:45)
[2023-04-03] MEDS: D5W/SOD CHL 0.45% 1,000 ML IV SCH ×2 (05:15→21:36)
[2023-04-03] MEDS: SODIUM CHLOR 0.9% PF (SALINE LOCK) 10ML VIAL/SYR IV SCH ×3 (06:00→22:11)
[2023-04-03] MEDS: InsuLIN REG 1unit/0.01ml Soln (100units/ml) SC SCH ×4 (08:00→20:34)
[2023-04-03 08:28] VITALS: PULSE 105; RESP 12; O2SAT 100
[2023-04-03] MEDS: ACCU-CHEK COMFORT CURVE STRIP VI SCH ×4 (09:42→20:34)
[2023-04-03] MEDS: ASPirin 81 mg TAB PO SCH (09:48)
[2023-04-03] MEDS: FAMOTIDINE (10MG/ML) 2ML VL IV SCH (09:48)
[2023-04-03] MEDS: cefTRIAXone 1GM/50ML D5W 50 ML IV SCH (10:04)
[2023-04-03] MEDS ORDERED: POTASSIUM CHL 20MEQ/100ML 100 ML IV ONE (11:00)
[2023-04-03 14:37] LABS: Basophils # (auto) 0.1 10 ^3/uL (0-0.2); Eosinophils # (auto) 0.1 10 ^3/uL (0-0.8); Mean Corpuscular Volume 90.6 fL (80.0-100.0); Monocytes # (auto) 0.9 10 ^3/uL (0-1.3); Monocytes % (auto) 7.9 % (0.0-12.0); Neutrophils # (auto) 8.1 10 ^3/uL (1.6-8.6)
[2023-04-03 14:41] LABS: Basophils % (auto) 0.9 % (0.0-2.0); Eosinophils % (auto) 1.2 % (0.0-7.0); Hematocrit 28.4 % (41.0-53.0); Hemoglobin 9.2 g/dL (13.5-17.5); Lymphocytes # (auto) 2.2 10 ^3/uL (0.4-5.4); Lymphocytes % (auto) 19.4 % (10.0-50.0); Mean Corpuscular Hemoglobin 29.3 pg (28.0-32.0); Mean Corpuscular Hgb Conc. 32.4 g/dL (32.0-36.0); Neutrophils % (auto) 70.6 % (37.0-80.0); Red Blood Cells 3.14 10^6/uL (4.5-5.90); Red Cell Distribution Width 17.2 % (11.8-14.3); White Blood Cell 11.4 10^3/uL (4.4-10.8)
[2023-04-03 14:57] LABS: Alanine Aminotransferase 15 U/L (7-40); Alkaline Phosphatase 56 U/L (46-116); Anion Gap 7 (5-15); Aspartate Aminotransferase 11 U/L (13-40); BUN/Creatinine Ratio 5.8 (10.0-20.0); Blood Urea Nitrogen 17 mg/dL (9-23); Calcium 7.9 mg/dL (8.7-10.4); Carbon Dioxide 22 mmol/L (20-30); Chloride 110 mmol/L (98-107); Glucose 104 mg/dL (74-106); Magnesium 1.5 mg/dL (1.6-2.6); Potassium 3.8 mmol/L (3.5-5.1); Sodium 139 mmol/L (136-145)
[2023-04-03 14:58] LABS: Bilirubin, Total 0.4 mg/dL (0.2-1.0); Phosphorus 3.2 mg/dL (2.4-5.1); Total Protein 5.4 g/dL (5.7-8.2)
[2023-04-03] MEDS ORDERED: ALPRAZolam 0.5 MG TAB PO PRN (15:30)
[2023-04-03] MEDS ORDERED: LORazepam 2MG/ML-1ML VIAL IV ONE ×2 (15:30→22:45)
[2023-04-03 15:45] LABS: Protein, Urine 125.6 mg/dL (0.0-11.9)
[2023-04-03 15:47] LABS: Creatinine, Urine 76.82 mg/dL (30.0-125.0); Urine Protein/Creatinine Ratio 1.63
[2023-04-03 15:48] LABS: Creatinine, Urine 75.32 mg/dL (30.0-125.0)
[2023-04-03 20:00] VITALS: PULSE 120; RESP 17; O2SAT 98
[2023-04-03] MEDS: ATORVASTATIN 20 MG TAB PO SCH (21:35)
[2023-04-04] MEDS: ACCU-CHEK COMFORT CURVE STRIP VI SCH ×6 (00:34→20:00)
[2023-04-04] MEDS: InsuLIN REG 1unit/0.01ml Soln (100units/ml) SC SCH ×6 (00:34→20:48)
[2023-04-04] MEDS: D5W/SOD CHL 0.45% 1,000 ML IV SCH ×2 (02:36→21:15)
[2023-04-04] MEDS: SODIUM CHLOR 0.9% PF (SALINE LOCK) 10ML VIAL/SYR IV SCH ×3 (06:06→22:25)
[2023-04-04 07:25] VITALS: RESP 18; O2SAT 98
[2023-04-04 08:11] LABS: Eosinophils # (auto) 0.4 10 ^3/uL (0-0.8); Eosinophils % (auto) 3.4 % (0.0-7.0); Lymphocytes # (auto) 1.8 10 ^3/uL (0.4-5.4); White Blood Cell 10.6 10^3/uL (4.4-10.8)
[2023-04-04 08:13] LABS: Basophils # (auto) 0.4 10 ^3/uL (0-0.2); Basophils % (auto) 3.4 % (0.0-2.0); Hematocrit 29.7 % (41.0-53.0); Hemoglobin 9.5 g/dL (13.5-17.5); Lymphocytes % (auto) 17.4 % (10.0-50.0); Mean Corpuscular Hemoglobin 29.6 pg (28.0-32.0); Mean Corpuscular Hgb Conc. 32.1 g/dL (32.0-36.0); Mean Corpuscular Volume 92.2 fL (80.0-100.0); Monocytes # (auto) 0.9 10 ^3/uL (0-1.3); Monocytes % (auto) 8.9 % (0.0-12.0); Neutrophils # (auto) 7.1 10 ^3/uL (1.6-8.6); Neutrophils % (auto) 66.9 % (37.0-80.0); Red Blood Cells 3.22 10^6/uL (4.5-5.90); Red Cell Distribution Width 17.6 % (11.8-14.3)
[2023-04-04 08:25] LABS: Alanine Aminotransferase 15 U/L (7-40); Albumin 2.9 g/dL (3.2-4.8); Alkaline Phosphatase 48 U/L (46-116); Anion Gap 7 (5-15); Aspartate Aminotransferase 12 U/L (13-40); BUN/Creatinine Ratio 4.5 (10.0-20.0); Blood Urea Nitrogen 13 mg/dL (9-23); Calcium 8.1 mg/dL (8.5-10.1); Carbon Dioxide 23 mmol/L (20-30); Chloride 112 mmol/L (98-107); Glucose 115 mg/dL (74-106); Potassium 3.7 mmol/L (3.5-5.1); Sodium 142 mmol/L (136-145); Total Protein 5.1 g/dL (5.7-8.2)
[2023-04-04 08:59] LABS: Bilirubin, Total 0.4 mg/dL (0.2-1.0)
[2023-04-04] MEDS: cefTRIAXone 1GM/50ML D5W 50 ML IV SCH (09:03)
[2023-04-04] MEDS: ASPirin 81 mg TAB PO SCH (10:00)
[2023-04-04] MEDS: FAMOTIDINE (10MG/ML) 2ML VL IV SCH (10:15)
[2023-04-04] MEDS: MAGNESIUM SULFATE 1GM/100ML 100 ML IV SCH ×2 (11:11→12:23)
[2023-04-04] MEDS ORDERED: LABETALOL HCL 5 MG/ML 4ML SYRINGE IV ONE (11:15)
[2023-04-04] MEDS ORDERED: hydrALAZINE HCL 20 MG/ML VL IV PRN (11:15)
[2023-04-04] MEDS ORDERED: LORazepam 2MG/ML-1ML VIAL IV PRN (17:00)
[2023-04-04 19:25] VITALS: PULSE 101; RESP 14; O2SAT 100
[2023-04-04] MEDS: ATORVASTATIN 20 MG TAB PO SCH (22:29)
[2023-04-05] MEDS: ACCU-CHEK COMFORT CURVE STRIP VI SCH ×6 (00:15→20:22)
[2023-04-05] MEDS: InsuLIN REG 1unit/0.01ml Soln (100units/ml) SC SCH ×6 (00:24→20:00)
[2023-04-05] MEDS: SODIUM CHLOR 0.9% PF (SALINE LOCK) 10ML VIAL/SYR IV SCH ×3 (06:02→22:00)
[2023-04-05] MEDS: cefTRIAXone 1GM/50ML D5W 50 ML IV SCH (09:00)
[2023-04-05] MEDS: ASPirin 81 mg TAB PO SCH (09:25)
[2023-04-05] MEDS: FAMOTIDINE (10MG/ML) 2ML VL IV SCH (09:25)
[2023-04-05] MEDS ORDERED: LABETALOL HCL 5 MG/ML 4ML SYRINGE IV PRN (10:15)
[2023-04-05] MEDS: D5W/SOD CHL 0.45% 1,000 ML IV SCH ×2 (10:38→18:07)
[2023-04-05 11:21] LABS: Free T4 (Free Thyroxine) 1.24 ng/dL (0.89-1.76)
[2023-04-05] MEDS ORDERED: MICAFUNGIN SODIUM 100 MG in SODIUM CHL 0.9% 100 ML IV ONE (13:15)
[2023-04-05 16:44] VITALS: PULSE 105; RESP 18; O2SAT 95
[2023-04-05 18:21] VITALS: BP 101/63; PULSE 105; RESP 21; TEMP 98.9; O2SAT 99
[2023-04-05 20:00] VITALS: PULSE 113; PULSE 114; RESP 18; O2SAT 95
[2023-04-05] MEDS: ATORVASTATIN 20 MG TAB PO SCH (22:00)
[2023-04-05] MEDS: METOPROLOL TARTRATE 25 MG TAB PO SCH (22:00)
[2023-04-05] MEDS: APIXABAN 5 MG TAB PO SCH (22:00)
[2023-04-06] MEDS: ACCU-CHEK COMFORT CURVE STRIP VI SCH ×6 (04:00→21:51)
[2023-04-06] MEDS: InsuLIN REG 1unit/0.01ml Soln (100units/ml) SC SCH ×6 (04:00→21:54)
[2023-04-06 05:00] VITALS: BP 153/51; PULSE 67; RESP 17; TEMP 98.3; O2SAT 92
[2023-04-06] MEDS: SODIUM CHLOR 0.9% PF (SALINE LOCK) 10ML VIAL/SYR IV SCH ×3 (06:00→21:51)
[2023-04-06 08:00] VITALS: BP 129/56; PULSE 83; PULSE 85; RESP 21; TEMP 98.6; O2SAT 99
[2023-04-06] MEDS: FAMOTIDINE (10MG/ML) 2ML VL IV SCH (09:46)
[2023-04-06] MEDS: METOPROLOL TARTRATE 25 MG TAB PO SCH ×2 (09:47→21:50)
[2023-04-06] MEDS: APIXABAN 5 MG TAB PO SCH ×2 (09:47→21:50)
[2023-04-06] MEDS: cefTRIAXone 1GM/50ML D5W 50 ML IV SCH (10:09)
[2023-04-06 12:00] VITALS: BP 125/64; PULSE 84; RESP 14; TEMP 97.6; O2SAT 94
[2023-04-06] MEDS: MICAFUNGIN SODIUM 100 MG in SODIUM CHL 0.9% 100 ML IV SCH (13:06)
[2023-04-06] MEDS ORDERED: LABETALOL HCL 5 MG/ML 4ML SYRINGE IV PRN (15:00)
[2023-04-06] MEDS ORDERED: DEXTROSE (50%) 50ML SYRG IV PRN (15:00)
[2023-04-06 15:33] LABS: Basophils # (auto) 0.1 10 ^3/uL (0-0.2); Hemoglobin 8.6 g/dL (13.5-17.5); Lymphocytes # (auto) 2.9 10 ^3/uL (0.4-5.4); Monocytes # (auto) 1.1 10 ^3/uL (0-1.3)
[2023-04-06 15:35] LABS: Basophils % (auto) 1.1 % (0.0-2.0); Eosinophils # (auto) 0.7 10 ^3/uL (0-0.8); Eosinophils % (auto) 5.6 % (0.0-7.0); Hematocrit 26.5 % (41.0-53.0); Lymphocytes % (auto) 24.3 % (10.0-50.0); Mean Corpuscular Hemoglobin 29.4 pg (28.0-32.0); Mean Corpuscular Hgb Conc. 32.4 g/dL (32.0-36.0); Mean Corpuscular Volume 90.7 fL (80.0-100.0); Monocytes % (auto) 9.7 % (0.0-12.0); Neutrophils # (auto) 6.9 10 ^3/uL (1.6-8.6); Neutrophils % (auto) 59.3 % (37.0-80.0); Red Blood Cells 2.92 10^6/uL (4.5-5.90); Red Cell Distribution Width 16.6 % (11.8-14.3); White Blood Cell 11.7 10^3/uL (4.4-10.8)
[2023-04-06 15:44] LABS: Alanine Aminotransferase 11 U/L (7-40); Albumin 2.8 g/dL (3.2-4.8); Alkaline Phosphatase 54 U/L (46-116); Anion Gap 7 (5-15); Aspartate Aminotransferase 10 U/L (13-40); BUN/Creatinine Ratio 5.8 (10.0-20.0); Blood Urea Nitrogen 16 mg/dL (9-23); Carbon Dioxide 23 mmol/L (20-30); Chloride 111 mmol/L (98-107); Glucose 133 mg/dL (74-106); Potassium 4.2 mmol/L (3.5-5.1); Sodium 141 mmol/L (136-145)
[2023-04-06 15:45] LABS: Bilirubin, Total 0.2 mg/dL (0.2-1.0)
[2023-04-06 16:00] VITALS: BP 117/69; PULSE 90; RESP 20; TEMP 98.5; O2SAT 100
[2023-04-06] MEDS ORDERED: ATOR40TA52 PO (16:54)
[2023-04-06] MEDS ORDERED: METF-929 PO (16:54)
[2023-04-06] MEDS ORDERED: FURO40TA4 PO (16:54)
[2023-04-06] MEDS ORDERED: TRAM50TA2 PO (16:54)
[2023-04-06] MEDS ORDERED: GABA-1308 PO (16:54)
[2023-04-06] MEDS ORDERED: POTA10TA51 PO (16:54)
[2023-04-06] MEDS ORDERED: LISI-275 PO (16:54)
[2023-04-06] MEDS ORDERED: ASPI-543 PO (16:54)
[2023-04-06] MEDS ORDERED: METO25TA5 PO (16:54)
[2023-04-06] MEDS ORDERED: ASCO500T16 PO (16:54)
[2023-04-06] MEDS ORDERED: INSU1INJ14 SC ×2 (16:54→17:26)
[2023-04-06 20:00] VITALS: PULSE 106
[2023-04-06] MEDS: ATORVASTATIN 20 MG TAB PO SCH (21:50)
[2023-04-06 22:00] VITALS: BP 133/73; PULSE 107; RESP 18; TEMP 96.8; O2SAT 99
[2023-04-06] MEDS: MUPIROCIN 2% OINT 15gm or 22gm FOR MRSA NARES EACHNOSTRI SCH (22:15)
[2023-04-07 05:00] VITALS: BP 135/58; PULSE 97; RESP 17; TEMP 97.6; O2SAT 98
[2023-04-07] MEDS: SODIUM CHLOR 0.9% PF (SALINE LOCK) 10ML VIAL/SYR IV SCH ×3 (06:19→22:46)
[2023-04-07] MEDS: ACCU-CHEK COMFORT CURVE STRIP VI SCH ×4 (06:26→22:46)
[2023-04-07] MEDS: InsuLIN REG 1unit/0.01ml Soln (100units/ml) SC SCH ×4 (06:26→22:00)
[2023-04-07 08:00] VITALS: PULSE 90
[2023-04-07] MEDS: cefTRIAXone 1GM/50ML D5W 50 ML IV SCH (08:52)
[2023-04-07] MEDS ORDERED: FAMOTIDINE (10MG/ML) 2ML VL IV SCH (10:00)
[2023-04-07] MEDS: MICAFUNGIN SODIUM 100 MG in SODIUM CHL 0.9% 100 ML IV SCH (10:12)
[2023-04-07] MEDS: MUPIROCIN 2% OINT 15gm or 22gm FOR MRSA NARES EACHNOSTRI SCH ×2 (10:13→22:46)
[2023-04-07] MEDS: APIXABAN 5 MG TAB PO SCH ×2 (10:13→22:45)
[2023-04-07] MEDS: METOPROLOL TARTRATE 25 MG TAB PO SCH ×2 (10:13→22:45)
[2023-04-07 15:00] LABS: Chloride 111 mmol/L (98-107); Potassium 3.8 mmol/L (3.5-5.1); Sodium 140 mmol/L (136-145)
[2023-04-07 15:01] LABS: Anion Gap 6 (5-15); Carbon Dioxide 23 mmol/L (20-30)
[2023-04-07 15:02] LABS: Calcium 8.1 mg/dL (8.5-10.1)
[2023-04-07 15:06] LABS: Glucose 163 mg/dL (74-106)
[2023-04-07 15:07] LABS: Blood Urea Nitrogen 18 mg/dL (9-23)
[2023-04-07 15:22] LABS: Basophils # (auto) 0.1 10 ^3/uL (0-0.2); Basophils % (auto) 1.2 % (0.0-2.0); Eosinophils # (auto) 0.7 10 ^3/uL (0-0.8); Hematocrit 27.1 % (41.0-53.0); Hemoglobin 8.7 g/dL (13.5-17.5); Lymphocytes # (auto) 2.6 10 ^3/uL (0.4-5.4); Lymphocytes % (auto) 25.3 % (10.0-50.0); Mean Corpuscular Hemoglobin 28.9 pg (28.0-32.0); Mean Corpuscular Hgb Conc. 32.3 g/dL (32.0-36.0); Mean Corpuscular Volume 89.4 fL (80.0-100.0); Monocytes # (auto) 0.9 10 ^3/uL (0-1.3); Monocytes % (auto) 9.3 % (0.0-12.0); Neutrophils # (auto) 5.8 10 ^3/uL (1.6-8.6); Neutrophils % (auto) 57.2 % (37.0-80.0); Nucleated Red Blood Cells % 0.1 %; Red Blood Cells 3.03 10^6/uL (4.5-5.90); Red Cell Distribution Width 16.4 % (11.8-14.3); White Blood Cell 10.2 10^3/uL (4.4-10.8)
[2023-04-07] MEDS ORDERED: FUROSEMIDE 40 MG/4 ML VIAL IV ONE (16:15)
[2023-04-07 17:00] VITALS: BP 124/67; PULSE 94; RESP 20; TEMP 98.7; O2SAT 99
[2023-04-07] MEDS ORDERED: diphenhdrAMINE HCL 25 MG CAP PO PRN (17:00)
[2023-04-07 20:00] VITALS: BP 104/70; PULSE 107; RESP 18; TEMP 97.6
[2023-04-07 22:00] VITALS: BP 104/70; PULSE 107; RESP 18; TEMP 97.6; O2SAT 95
[2023-04-07] MEDS: ATORVASTATIN 20 MG TAB PO SCH (22:45)
[2023-04-08 05:00] VITALS: BP 137/80; PULSE 91; RESP 18; TEMP 97.4; O2SAT 100
[2023-04-08] MEDS: InsuLIN REG 1unit/0.01ml Soln (100units/ml) SC SCH ×3 (06:23→16:46)
[2023-04-08] MEDS: ACCU-CHEK COMFORT CURVE STRIP VI SCH ×3 (06:23→16:38)
[2023-04-08] MEDS: SODIUM CHLOR 0.9% PF (SALINE LOCK) 10ML VIAL/SYR IV SCH ×2 (06:24→12:16)
[2023-04-08 08:00] VITALS: BP 104/70; PULSE 107; PULSE 86; RESP 17; RESP 18; TEMP 97.6
[2023-04-08] MEDS: cefTRIAXone 1GM/50ML D5W 50 ML IV SCH (08:29)
[2023-04-08] MEDS: APIXABAN 5 MG TAB PO SCH (08:33)
[2023-04-08] MEDS: METOPROLOL TARTRATE 25 MG TAB PO SCH (08:33)
[2023-04-08] MEDS: MUPIROCIN 2% OINT 15gm or 22gm FOR MRSA NARES EACHNOSTRI SCH (08:34)
[2023-04-08 08:45] VITALS: BP 129/68; PULSE 86; RESP 17; TEMP 98.2; O2SAT 99
[2023-04-08] MEDS: MICAFUNGIN SODIUM 100 MG in SODIUM CHL 0.9% 100 ML IV SCH (10:00)
[2023-04-08] MEDS ORDERED: GABAPENTIN 100 MG CAP PO SCH (10:00)
[2023-04-08] MEDS ORDERED: FUROSEMIDE 40 MG/4 ML VIAL IV SCH (10:00)
[2023-04-08] MEDS ORDERED: FAMOTIDINE 20 MG TAB PO SCH (10:00)
[2023-04-08] MEDS ORDERED: CEFU500T43 PO (10:10)
[2023-04-08] MEDS ORDERED: FLUC200T50 PO (10:10)
[2023-04-08 13:43] VITALS: BP 114/66; PULSE 70; RESP 17; TEMP 98.9; O2SAT 96
[2023-04-08 17:02] VITALS: BP 122/59; PULSE 87; RESP 16; TEMP 98.2; O2SAT 98
[2023-04-08 22:00] VITALS: BP 132/77; PULSE 110; RESP 20; TEMP 98.7; O2SAT 96
[2023-04-15 12:16] LABS: Free T3 2.33 pg/mL (2.3-4.2)
== END 2023-04-08 23:28 | disposition home or self-care (01) | DRG 871 ==
LOC: EDBD 20:07 → ER 20:07 → TELE 04-03 04:48 → EDUNIT# 04-03 04:48 → TELE-CENTR 04-05 14:30 → CENTRAL 04-06 18:17 → TELE-CENTR 04-06 18:21 → CENTRAL 04-07 16:49
PROVIDERS: ADMIT Internal Medicine; ATTEND Internal Medicine
PROC: 05HB33Z Insertion of Infusion Device into Right Basilic Vein, Percutaneous Approach (ICD-10-PCS; principal; 2023-04-05)
PROC: B54MZZA Ultrasonography of Right Upper Extremity Veins, Guidance (ICD-10-PCS; 2023-04-05)
DX: A41.9 Sepsis, unspecified organism (principal); G92.8 Other toxic encephalopathy; N17.0 Acute kidney failure with tubular necrosis; B37.49 Other urogenital candidiasis; I13.0 Hypertensive heart and chronic kidney disease with heart failure and stage 1 through stage 4 chronic kidney disease, or unspecified chronic kidney disease; I50.32 Chronic diastolic (congestive) heart failure; D63.1 Anemia in chronic kidney disease; D75.838 Other thrombocytosis; E11.22 Type 2 diabetes mellitus with diabetic chronic kidney disease; E11.649 Type 2 diabetes mellitus with hypoglycemia without coma; E87.6 Hypokalemia; F32.A Depression, unspecified; R94.6 Abnormal results of thyroid function studies; E78.5 Hyperlipidemia, unspecified; E83.42 Hypomagnesemia; L27.0 Generalized skin eruption due to drugs and medicaments taken internally; L30.9 Dermatitis, unspecified; N13.9 Obstructive and reflux uropathy, unspecified; Z79.82 Long term (current) use of aspirin; Z79.899 Other long term (current) drug therapy; Z87.442 Personal history of urinary calculi; Z88.1 Allergy status to other antibiotic agents; Z86.73 Personal history of transient ischemic attack (TIA), and cerebral infarction without residual deficits; N18.30 Chronic kidney disease, stage 3 unspecified
CPT/HCPCS: 36415; 70450; 70551; 71045; 76775; 80048; 80053; 80307; 80320; 81001; 82010; 82306; 82570; 82962; 83036; 83690; 83735; 83880; 83930; 83970; 84100; 84156; 84300; 84439; 84443; 84481; 84484; 85025; 85610; 85730; 87040; 87081; 87086; 87088; 95819; 96361; 96365; 96375; 96376; 97110; 97163; 97530; G0378; J0696; J1815; J2248; J2405; J2543; J3490

== ENCOUNTER 2023-04-14 09:39 | Inpatient (IN) | payer OTHER ==
[~2023-04-14] VITALS: Ht 182.9 cm; Wt 75.6 kg
[2023-04-14] VITALS (8 sets, daily range): BP systolic 124–151; BP diastolic 62–98; PULSE 94–140; RESP 16–23; O2SAT 98–100
[~2023-04-14 09:39] MED LIST changes: -AMLO1TAB22 PO; -APIX5TAB PO; -ASCO500T11 PO; +ASCO500T16 PO; +ASPI-543 PO; -ASPI-628 PO; -ATOR10TA PO; -BENZ100C97 PO; +CEFU500T43 PO; -CEPH-510 PO; -CIPR-173 PO; -DABI75CA5 PO; -ESCI1TAB36 PO; -FENO145T27 PO; +FLUC200T50 PO; -FURO1TAB31 PO; +FURO40TA4 PO; -GAB100C PO; +GABA-1308 PO; -HYDR-4227 PO; -INSU70IN3 SC; -LINE1TAB10 PO; -METF-372 PO; +METF-929 PO; +POTA10TA51 PO; -POTA1TAB61 PO
[2023-04-14] MEDS ORDERED: ROCURONIUM 10MG/ML 10ML VIAL IV ONE (10:00)
[2023-04-14] MEDS ORDERED: ETOMIDATE (2MG/ML) 20ML VIAL IV ONE (10:00)
[2023-04-14] MEDS ORDERED: AZITHROMYCIN 500MG/ 250ML 250 ML IV ONE (10:15)
[2023-04-14] MEDS ORDERED: SODIUM CHLORIDE 0.9% 1,000 ML IV ONE ×3 (10:15)
[2023-04-14] MEDS ORDERED: cefTRIAXone 1GM/50ML D5W 50 ML IV ONE (10:15)
[2023-04-14 10:25] LABS: Basophils # (auto) 0.1 10 ^3/uL (0-0.2); Basophils % (auto) 0.9 % (0.0-2.0); Eosinophils # (auto) 0 10 ^3/uL (0-0.8); Eosinophils % (auto) 0.1 % (0.0-7.0); Hematocrit 27.9 % (41.0-53.0); Hemoglobin 8.7 g/dL (13.5-17.5); Lymphocytes # (auto) 1.5 10 ^3/uL (0.4-5.4); Lymphocytes % (auto) 11.3 % (10.0-50.0); Mean Corpuscular Hemoglobin 28.2 pg (28.0-32.0); Mean Corpuscular Hgb Conc. 31.3 g/dL (32.0-36.0); Mean Corpuscular Volume 90.2 fL (80.0-100.0); Monocytes # (auto) 0.5 10 ^3/uL (0-1.3); Monocytes % (auto) 4.1 % (0.0-12.0); Neutrophils % (auto) 83.6 % (37.0-80.0); Red Blood Cells 3.09 10^6/uL (4.5-5.90); Red Cell Distribution Width 16.4 % (11.8-14.3); White Blood Cell 13.2 10^3/uL (4.4-10.8)
[2023-04-14 10:39] LABS: INR 1.09 (0.9-1.15); Partial Thromboplastin Time 29.6 SEC (24.5-34.5); Prothrombin Time 11.4 sec (9.3-11.8)
[2023-04-14 10:43] LABS: Lactic Acid w/Reflex 3.6 mmol/L (0.4-2.0)
[2023-04-14 10:45] LABS: Alanine Aminotransferase 25 U/L (7-40); Alkaline Phosphatase 63 U/L (46-116); Anion Gap 9 (5-15); Aspartate Aminotransferase 22 U/L (13-40); Blood Urea Nitrogen 25 mg/dL (9-23); Calcium 8.3 mg/dL (8.7-10.4); Carbon Dioxide 23 mmol/L (20-30); Chloride 111 mmol/L (98-107); Glucose 130 mg/dL (74-106); Potassium 3.9 mmol/L (3.5-5.1); Sodium 143 mmol/L (136-145)
[2023-04-14 10:46] LABS: Bilirubin, Total 0.3 mg/dL (0.2-1.0); Total Protein 5.3 g/dL (5.7-8.2)
[2023-04-14 10:56] LABS: Urine Bacteria NONE SEEN /hpf (None Seen); Urine Blood 3+ /uL (Negative); Urine Clarity Clear (Clear); Urine Protein, UAD TRACE (Negative); Urine Specific Gravity 1.009 (1.001-1.035); Urine Urobilinogen Normal (Negative); Urine WBC 24 /hpf (0 - 3); Urine pH 5.5 (5.0-8.0)
[2023-04-14 10:57] LABS: Urine Color STRAW (Yellow)
[2023-04-14 11:32] LABS: Platelet Estimate Increased
[2023-04-14 12:11] LABS: Base Excess -4.4 mmol/L (-2.0-2.0)
[2023-04-14] MEDS ORDERED: MORPHINE SULFATE INJ 2 MG/ml SYRG IV PRN (12:15)
[2023-04-14] MEDS ORDERED: LABETALOL HCL 5 MG/ML 4ML SYRINGE IV ONE (12:15)
[2023-04-14] MEDS ORDERED: NITROGLYCERIN 0.4 MG SL TAB SL PRN (12:15)
[2023-04-14] MEDS ORDERED: HEPARIN SODIUM (PORCINE) 5000 UNITS/ML 1ML VIAL IV ONE (13:30)
[2023-04-14] MEDS ORDERED: HEPARIN DRIP/D5W 100UNITS/ML 250 ML IV SCH (13:30)
[2023-04-14] MEDS: DEXTROSE (50%) 50ML SYRG IV PRN ×2 (14:17→18:13)
[2023-04-14] MEDS ORDERED: LABETALOL HCL 5 MG/ML 4ML SYRINGE IV PRN (14:30)
[2023-04-14] MEDS: metroNIDAZOLE 500MG/100ML 100 ML IV SCH ×2 (14:39→22:21)
[2023-04-14] MEDS: MIDAZOLAM DRIP 50 mg/50mL 50 ML IV SCH ×2 (15:10→20:03)
[2023-04-14] MEDS: SODIUM CHLORIDE 0.9% 1,000 ML IV SCH (16:45)
[2023-04-14] MEDS ORDERED: ENOXAPARIN SOD 80 MG/0.8ML SYRINGE SC ONE (17:00)
[2023-04-14 17:53] LABS: Lactic Acid w/Reflex 2.5 mmol/L (0.4-2.0)
[2023-04-14] MEDS: InsuLIN REG 1unit/0.01ml Soln (100units/ml) SC SCH (18:00)
[2023-04-14] MEDS: ACCU-CHEK COMFORT CURVE STRIP VI SCH (18:14)
[2023-04-14] MEDS: DEXTROSE 10% 1,000 ML IV SCH (18:14)
[2023-04-14 18:55] LABS: Magnesium 1.7 mg/dL (1.6-2.6)
[2023-04-14 18:56] LABS: Phosphorus 4.7 mg/dL (2.4-5.1)
[2023-04-14] MEDS: fentaNYL Drip 2500mCg/250mlNS 250 ML IV SCH (20:01)
[2023-04-14] MEDS ORDERED: DEXTROSE 10% 250 ML IV SCH (22:00)
[2023-04-14] MEDS: HEPARIN SODIUM (PORCINE) 5000 UNITS/ML 1ML VIAL SC SCH (22:24)
[2023-04-15] VITALS (106 sets, daily range): BP systolic 72–155; BP diastolic 37–168; PULSE 72–105; RESP 10–18; TEMP 96.4–98.8; O2SAT 93–100
[2023-04-15] MEDS: ACCU-CHEK COMFORT CURVE STRIP VI SCH ×5 (00:26→21:36)
[2023-04-15] MEDS: MIDAZOLAM DRIP 50 mg/50mL 50 ML IV SCH ×4 (02:52→23:13)
[2023-04-15] MEDS: SODIUM CHLORIDE 0.9% 1,000 ML IV SCH (03:31)
[2023-04-15 04:14] LABS: Basophils # (auto) 0.1 10 ^3/uL (0-0.2); Eosinophils # (auto) 0.1 10 ^3/uL (0-0.8); Monocytes # (auto) 0.9 10 ^3/uL (0-1.3)
[2023-04-15 04:16] LABS: Basophils % (auto) 0.8 % (0.0-2.0); Eosinophils % (auto) 0.9 % (0.0-7.0); Hemoglobin 7.9 g/dL (13.5-17.5); Lymphocytes # (auto) 2.6 10 ^3/uL (0.4-5.4); Lymphocytes % (auto) 18.8 % (10.0-50.0); Mean Corpuscular Hemoglobin 28.6 pg (28.0-32.0); Mean Corpuscular Hgb Conc. 31.8 g/dL (32.0-36.0); Monocytes % (auto) 6.7 % (0.0-12.0); Neutrophils # (auto) 10.1 10 ^3/uL (1.6-8.6); Neutrophils % (auto) 72.8 % (37.0-80.0); Red Blood Cells 2.78 10^6/uL (4.5-5.90); Red Cell Distribution Width 16.1 % (11.8-14.3); White Blood Cell 13.8 10^3/uL (4.4-10.8)
[2023-04-15] MEDS ORDERED: APIX5TAB PO (04:26)
[2023-04-15] MEDS ORDERED: FENO145T27 PO (04:26)
[2023-04-15] MEDS ORDERED: INSU100I33 SC (04:26)
[2023-04-15] MEDS ORDERED: ESCI1TAB36 PO (04:26)
[2023-04-15] MEDS ORDERED: INSU70IN3 SC (04:26)
[2023-04-15 04:28] LABS: Alanine Aminotransferase 17 U/L (7-40); Albumin 2.6 g/dL (3.2-4.8); Alkaline Phosphatase 54 U/L (46-116); Anion Gap 7 (5-15); Aspartate Aminotransferase 21 U/L (13-40); BUN/Creatinine Ratio 7.4 (10.0-20.0); Blood Urea Nitrogen 18 mg/dL (9-23); Calcium 7.9 mg/dL (8.7-10.4); Carbon Dioxide 23 mmol/L (20-30); Chloride 112 mmol/L (98-107); Glucose 190 mg/dL (74-106); Potassium 3.4 mmol/L (3.5-5.1); Sodium 142 mmol/L (136-145)
[2023-04-15 04:29] LABS: Bilirubin, Total 0.2 mg/dL (0.2-1.0); Total Protein 4.7 g/dL (5.7-8.2)
[2023-04-15 04:32] LABS: Creatinine, Urine 55.66 mg/dL (30.0-125.0); Urine Protein/Creatinine Ratio 2.01
[2023-04-15] MEDS: metroNIDAZOLE 500MG/100ML 100 ML IV SCH (05:46)
[2023-04-15] MEDS: InsuLIN REG 1unit/0.01ml Soln (100units/ml) SC SCH ×2 (05:57)
[2023-04-15] MEDS ORDERED: SODIUM CHLORIDE 0.9% 500 ML IV ONE (06:00)
[2023-04-15] MEDS ORDERED: POTASSIUM CHL 20MEQ/100ML 100 ML IV ONE (06:45)
[2023-04-15] MEDS ORDERED: MAGNESIUM SULFATE 1GM/100ML 100 ML IV ONE (06:45)
[2023-04-15] MEDS: DEXTROSE 10% 1,000 ML IV SCH (07:04)
[2023-04-15 07:05] LABS: Triglycerides 84 mg/dL (< 150)
[2023-04-15 07:06] LABS: LDL Cholesterol 47 mg/dL (< 100)
[2023-04-15 07:07] LABS: Cholesterol 99 mg/dL (< 200); HDL Cholesterol 31 mg/dL (40-59)
[2023-04-15 08:25] LABS: Base Excess -4.2 mmol/L (-2.0-2.0)
[2023-04-15] MEDS ORDERED: cefTRIAXone 1GM/50ML D5W 50 ML IV SCH (09:00)
[2023-04-15] MEDS: NOREPINEPHRINE BITARTRATE 16 MG in SODIUM CHL 0.9% 234 ML IV SCH (09:26)
[2023-04-15] MEDS: PANTOPRAZOLE 40 MG/10 ML VIAL INJ IV SCH (09:46)
[2023-04-15] MEDS: HEPARIN SODIUM (PORCINE) 5000 UNITS/ML 1ML VIAL SC SCH (09:47)
[2023-04-15] MEDS ORDERED: CEFEPIME 1GM/ 50ML 50 ML IV SCH (10:00)
[2023-04-15] MEDS ORDERED: AZITHROMYCIN 500MG/ 250ML 250 ML IV SCH (10:00)
[2023-04-15] MEDS: FUROSEMIDE 20 MG/2 ML VIAL IV SCH (10:54)
[2023-04-15] MEDS: IPRATROPIUM BROM 0.5 MG/2.5ML INH SOL NEB SCH ×2 (11:26→18:21)
[2023-04-15] MEDS: ALBUTEROL MEDNEB 2.5 mg/3ml NEB NEB SCH ×2 (11:26→18:21)
[2023-04-15] MEDS: D5W/SOD CHLO 0.9% 1,000 ML IV SCH ×3 (12:02→18:43)
[2023-04-15] MEDS ORDERED: PROPOFOL 100 ML IV ONE (13:09)
[2023-04-15] MEDS: PROPOFOL 100 ML IV SCH ×3 (13:15→23:12)
[2023-04-15] MEDS ORDERED: PROPOFOL 100 ML IV SCH (13:15)
[2023-04-15] MEDS ORDERED: CLOPIDOGREL 300 MG TAB PO ONE (14:00)
[2023-04-15] MEDS ORDERED: ASPirin 81 mg TAB PO ONE (14:00)
[2023-04-15] MEDS: HEPARIN DRIP/D5W 100UNITS/ML 250 ML IV SCH (14:37)
[2023-04-15] MEDS ORDERED: BLOO1KIT60 XX (14:47)
[2023-04-15] MEDS: TAMSULOSIN HYDROCHLORIDE 0.4 MG CAP PO SCH (18:43)
[2023-04-15 19:27] LABS: INR 1.17 (0.9-1.15); Partial Thromboplastin Time 68.5 SEC (24.5-34.5); Prothrombin Time 12.2 sec (9.3-11.8)
[2023-04-15] MEDS: fentaNYL Drip 2500mCg/250mlNS 250 ML IV SCH (19:54)
[2023-04-15] MEDS: MUPIROCIN 2% OINT 15gm or 22gm FOR MRSA NARES EACHNOSTRI SCH (21:36)
[2023-04-15 22:16] LABS: INR 1.14 (0.9-1.15); Partial Thromboplastin Time 50.7 SEC (24.5-34.5); Prothrombin Time 11.9 sec (9.3-11.8)
[2023-04-16] VITALS (104 sets, daily range): BP systolic 69–165; BP diastolic 45–92; PULSE 70–140; RESP 12–20; TEMP 95.5–99.1; O2SAT 74–100
[2023-04-16] MEDS: IPRATROPIUM BROM 0.5 MG/2.5ML INH SOL NEB SCH ×4 (00:44→18:46)
[2023-04-16] MEDS: ALBUTEROL MEDNEB 2.5 mg/3ml NEB NEB SCH ×4 (00:44→18:46)
[2023-04-16] MEDS ORDERED: DEXTROSE (50%) 50ML SYRG IV PRN (00:45)
[2023-04-16] MEDS: D5W/SOD CHLO 0.9% 1,000 ML IV SCH (01:27)
[2023-04-16] MEDS: MIDAZOLAM DRIP 50 mg/50mL 50 ML IV SCH ×5 (02:20→22:48)
[2023-04-16] MEDS: PROPOFOL 100 ML IV SCH ×3 (02:41→18:38)
[2023-04-16 04:10] LABS: Hemoglobin 7.7 g/dL (13.5-17.5); Nucleated Red Blood Cells % 0.1 %; White Blood Cell 9.5 10^3/uL (4.4-10.8)
[2023-04-16 04:15] LABS: Basophils # (auto) 0.1 10 ^3/uL (0-0.2); Basophils % (auto) 0.7 % (0.0-2.0); Eosinophils # (auto) 0.6 10 ^3/uL (0-0.8); Eosinophils % (auto) 6.7 % (0.0-7.0); Hematocrit 25.5 % (41.0-53.0); Lymphocytes # (auto) 2.9 10 ^3/uL (0.4-5.4); Lymphocytes % (auto) 30.3 % (10.0-50.0); Mean Corpuscular Hemoglobin 29.3 pg (28.0-32.0); Mean Corpuscular Hgb Conc. 30.2 g/dL (32.0-36.0); Mean Corpuscular Volume 96.8 fL (80.0-100.0); Monocytes # (auto) 0.7 10 ^3/uL (0-1.3); Monocytes % (auto) 7.8 % (0.0-12.0); Neutrophils # (auto) 5.2 10 ^3/uL (1.6-8.6); Neutrophils % (auto) 54.5 % (37.0-80.0); Red Blood Cells 2.64 10^6/uL (4.5-5.90); Red Cell Distribution Width 16.7 % (11.8-14.3)
[2023-04-16 04:45] LABS: Alanine Aminotransferase 14 U/L (7-40); Albumin 2.5 g/dL (3.2-4.8); Alkaline Phosphatase 49 U/L (46-116); Anion Gap 7 (5-15); Aspartate Aminotransferase 15 U/L (13-40); BUN/Creatinine Ratio 6.1 (10.0-20.0); Blood Urea Nitrogen 14 mg/dL (9-23); Calcium 7.5 mg/dL (8.7-10.4); Carbon Dioxide 21 mmol/L (20-30); Chloride 116 mmol/L (98-107); Glucose 233 mg/dL (74-106); Potassium 3.6 mmol/L (3.5-5.1); Sodium 144 mmol/L (136-145)
[2023-04-16 04:46] LABS: Bilirubin, Total 0.2 mg/dL (0.2-1.0); Total Protein 4.4 g/dL (5.7-8.2)
[2023-04-16] MEDS: ACCU-CHEK COMFORT CURVE STRIP VI SCH ×3 (05:56→18:30)
[2023-04-16] MEDS: InsuLIN REG 1unit/0.01ml Soln (100units/ml) SC SCH ×3 (05:56→18:20)
[2023-04-16] MEDS: fentaNYL Drip 2500mCg/250mlNS 250 ML IV SCH ×2 (07:25→19:49)
[2023-04-16 08:06] LABS: Base Excess -6.1 mmol/L (-2.0-2.0)
[2023-04-16] MEDS: SODIUM CHLORIDE 0.9% 1,000 ML IV SCH ×3 (09:00→19:50)
[2023-04-16] MEDS: NOREPINEPHRINE BITARTRATE 16 MG in SODIUM CHL 0.9% 234 ML IV SCH ×2 (09:03→21:41)
[2023-04-16] MEDS ORDERED: FUROSEMIDE 100 MG/10ML VIAL IV ONE ×2 (09:45→16:30)
[2023-04-16] MEDS ORDERED: ANGIOMAX 250 MG VIAL IV ONE (09:53)
[2023-04-16] MEDS ORDERED: IODIXANOL 320MG/ML 100ML BTL IV ONE (09:53)
[2023-04-16] MEDS ORDERED: VERAPAMIL 2.5MG/ML INJ 2ML VIAL IV ONE (09:53)
[2023-04-16] MEDS ORDERED: SODIUM CHL 0.9% 0 ML ONE (09:53)
[2023-04-16] MEDS ORDERED: HEPARIN SODIUM (PORCINE) 5000 UNITS/ML 1ML VIAL ONE (09:53)
[2023-04-16] MEDS ORDERED: LIDOCAINE 2%HCL (LOCAL ANESTH.) INJ 20ML MDV ONE (09:53)
[2023-04-16] MEDS: FUROSEMIDE 20 MG/2 ML VIAL IV SCH (12:00)
[2023-04-16] MEDS: MUPIROCIN 2% OINT 15gm or 22gm FOR MRSA NARES EACHNOSTRI SCH ×2 (13:24→21:39)
[2023-04-16] MEDS: PANTOPRAZOLE 40 MG/10 ML VIAL INJ IV SCH (13:24)
[2023-04-16] MEDS: ASPirin 81 mg TAB PO SCH (13:28)
[2023-04-16] MEDS: HEPARIN DRIP/D5W 100UNITS/ML 250 ML IV SCH (13:30)
[2023-04-16] MEDS: MEROPENEM 500MG IVPB 50 ML IV SCH (14:41)
[2023-04-16] MEDS ORDERED: SODIUM CHLORIDE 0.9% 1,000 ML IV ONE (15:15)
[2023-04-16] MEDS ORDERED: HYDROCORTISONE SOD SUCC 100 MG/2ML INJ VIAL IV ONE (16:15)
[2023-04-16] MEDS: VASOPRESSIN 20 UNITS in SODIUM CHL 0.9% 99 ML IV SCH (16:39)
[2023-04-16 17:36] LABS: Basophils # (auto) 0.2 10 ^3/uL (0-0.2); Eosinophils # (auto) 0.9 10 ^3/uL (0-0.8); Lymphocytes # (auto) 1.1 10 ^3/uL (0.4-5.4); Monocytes # (auto) 0.9 10 ^3/uL (0-1.3); Neutrophils # (auto) 13.1 10 ^3/uL (1.6-8.6); White Blood Cell 16.1 10^3/uL (4.4-10.8)
[2023-04-16 17:37] LABS: Basophils % (auto) 1.2 % (0.0-2.0); Eosinophils % (auto) 5.6 % (0.0-7.0); Hematocrit 26.2 % (41.0-53.0); Hemoglobin 8.2 g/dL (13.5-17.5); Lymphocytes % (auto) 6.7 % (10.0-50.0); Mean Corpuscular Hemoglobin 28.8 pg (28.0-32.0); Mean Corpuscular Hgb Conc. 31.1 g/dL (32.0-36.0); Mean Corpuscular Volume 92.5 fL (80.0-100.0); Monocytes % (auto) 5.5 % (0.0-12.0); Red Blood Cells 2.83 10^6/uL (4.5-5.90); Red Cell Distribution Width 16.3 % (11.8-14.3)
[2023-04-16 17:54] LABS: Alanine Aminotransferase 13 U/L (7-40); Albumin 2.6 g/dL (3.2-4.8); Alkaline Phosphatase 51 U/L (46-116); Anion Gap 7 (5-15); Aspartate Aminotransferase 17 U/L (13-40); BUN/Creatinine Ratio 5.3 (10.0-20.0); Blood Urea Nitrogen 12 mg/dL (9-23); Carbon Dioxide 22 mmol/L (20-30); Chloride 120 mmol/L (98-107)
[2023-04-16 17:55] LABS: Bilirubin, Total 0.3 mg/dL (0.2-1.0); Total Protein 4.7 g/dL (5.7-8.2)
[2023-04-16 18:37] LABS: Glucose 128 mg/dL (74-106); Sodium 149 mmol/L (136-145)
[2023-04-16] MEDS: TAMSULOSIN HYDROCHLORIDE 0.4 MG CAP PO SCH (19:18)
[2023-04-16] MEDS: EPINEPHrine HCL 250 ML IV SCH (19:30)
[2023-04-16] MEDS: LINEZOLID 600MG/300ML 300 ML IV SCH (21:39)
[2023-04-16] MEDS: HEPARIN SODIUM (PORCINE) 5000 UNITS/ML 1ML VIAL SC SCH (21:40)
[2023-04-16] MEDS: HYDROCORTISONE SOD SUCC 100 MG/2ML INJ VIAL IV SCH (21:40)
[2023-04-17] VITALS (112 sets, daily range): BP systolic 53–166; BP diastolic 32–93; PULSE 78–134; RESP 12–27; TEMP 96.3–98.8; O2SAT 98–100
[2023-04-17] MEDS: InsuLIN REG 1unit/0.01ml Soln (100units/ml) SC SCH ×4 (00:01→17:17)
[2023-04-17] MEDS: ALBUTEROL MEDNEB 2.5 mg/3ml NEB NEB SCH ×4 (00:04→19:19)
[2023-04-17] MEDS: IPRATROPIUM BROM 0.5 MG/2.5ML INH SOL NEB SCH ×4 (00:04→19:19)
[2023-04-17] MEDS: PROPOFOL 100 ML IV SCH ×2 (02:55→11:42)
[2023-04-17] MEDS: VASOPRESSIN 20 UNITS in SODIUM CHL 0.9% 99 ML IV SCH ×2 (03:22→07:28)
[2023-04-17] MEDS: MIDAZOLAM DRIP 50 mg/50mL 50 ML IV SCH ×5 (03:46→22:48)
[2023-04-17 04:00] LABS: Alanine Aminotransferase 10 U/L (7-40); Alkaline Phosphatase 59 U/L (46-116)
[2023-04-17 04:01] LABS: Albumin 2.8 g/dL (3.2-4.8); Anion Gap 10 (5-15); Aspartate Aminotransferase 13 U/L (13-40); BUN/Creatinine Ratio 6.1 (10.0-20.0); Bilirubin, Total 0.2 mg/dL (0.2-1.0); Blood Urea Nitrogen 14 mg/dL (9-23); Calcium 8.1 mg/dL (8.5-10.1); Carbon Dioxide 20 mmol/L (20-30); Chloride 118 mmol/L (98-107); Potassium 4.2 mmol/L (3.5-5.1); Sodium 148 mmol/L (136-145)
[2023-04-17 04:32] LABS: Basophils # (auto) 0.1 10 ^3/uL (0-0.2); Eosinophils # (auto) 0 10 ^3/uL (0-0.8); Hemoglobin 8.2 g/dL (13.5-17.5); Monocytes # (auto) 0.2 10 ^3/uL (0-1.3)
[2023-04-17 04:35] LABS: Basophils % (auto) 0.4 % (0.0-2.0); Hematocrit 25.8 % (41.0-53.0); Lymphocytes # (auto) 0.7 10 ^3/uL (0.4-5.4); Lymphocytes % (auto) 3.7 % (10.0-50.0); Mean Corpuscular Hemoglobin 29.3 pg (28.0-32.0); Mean Corpuscular Hgb Conc. 31.8 g/dL (32.0-36.0); Mean Corpuscular Volume 92.2 fL (80.0-100.0); Neutrophils # (auto) 17.5 10 ^3/uL (1.6-8.6); Neutrophils % (auto) 94.9 % (37.0-80.0); Red Cell Distribution Width 16.3 % (11.8-14.3); White Blood Cell 18.4 10^3/uL (4.4-10.8)
[2023-04-17 04:44] LABS: Glucose 233 mg/dL (74-106)
[2023-04-17] MEDS: ACCU-CHEK COMFORT CURVE STRIP VI SCH ×5 (05:40→23:55)
[2023-04-17] MEDS: SODIUM CHLORIDE 0.9% 1,000 ML IV SCH (06:40)
[2023-04-17] MEDS: fentaNYL Drip 2500mCg/250mlNS 250 ML IV SCH ×2 (06:41→18:19)
[2023-04-17 07:08] LABS: Base Excess -6.3 mmol/L (-2.0-2.0)
[2023-04-17] MEDS ORDERED: SOD CHL 0.45% 1,000 ML IV SCH (07:15)
[2023-04-17] MEDS: EPINEPHrine HCL 250 ML IV SCH (07:29)
[2023-04-17] MEDS: FUROSEMIDE 20 MG/2 ML VIAL IV SCH (08:19)
[2023-04-17] MEDS: HYDROCORTISONE SOD SUCC 100 MG/2ML INJ VIAL IV SCH ×2 (08:19→22:18)
[2023-04-17] MEDS: PANTOPRAZOLE 40 MG/10 ML VIAL INJ IV SCH (08:19)
[2023-04-17] MEDS: HEPARIN SODIUM (PORCINE) 5000 UNITS/ML 1ML VIAL SC SCH ×2 (08:19→22:18)
[2023-04-17] MEDS: MUPIROCIN 2% OINT 15gm or 22gm FOR MRSA NARES EACHNOSTRI SCH ×2 (08:20→22:19)
[2023-04-17] MEDS: MEROPENEM 500MG IVPB 50 ML IV SCH (08:20)
[2023-04-17] MEDS: LINEZOLID 600MG/300ML 300 ML IV SCH ×2 (08:21→22:16)
[2023-04-17] MEDS: ASPirin 81 mg TAB PO SCH (08:21)
[2023-04-17] MEDS: TAMSULOSIN HYDROCHLORIDE 0.4 MG CAP PO SCH (17:07)
[2023-04-17] MEDS: NOREPINEPHRINE BITARTRATE 16 MG in SODIUM CHL 0.9% 234 ML IV SCH (18:19)
[2023-04-17] MEDS ORDERED: AZITHROMYCIN 500MG/ 250ML 250 ML IV ONE (19:45)
[2023-04-17] MEDS ORDERED: MEROPENEM 1GM IVPB 100 ML IV SCH (22:00)
[2023-04-17] MEDS ORDERED: MUPIROCIN 2% OINT 15gm or 22gm FOR MRSA NARES EACHNOSTRI SCH (22:00)
[2023-04-17] MEDS ORDERED: DOXYCYCLINE 100MG/250ML 250 ML IV SCH (22:00)
[2023-04-18] VITALS (108 sets, daily range): BP systolic 77–126; BP diastolic 40–67; PULSE 66–116; RESP 14–33; TEMP 97.2–98.3; O2SAT 95–100
[2023-04-18] MEDS: IPRATROPIUM BROM 0.5 MG/2.5ML INH SOL NEB SCH ×4 (00:21→18:43)
[2023-04-18] MEDS: ALBUTEROL MEDNEB 2.5 mg/3ml NEB NEB SCH ×4 (00:21→18:43)
[2023-04-18] MEDS: VASOPRESSIN 20 UNITS in SODIUM CHL 0.9% 99 ML IV SCH ×3 (00:48→23:50)
[2023-04-18] MEDS: PROPOFOL 100 ML IV SCH ×3 (04:38→21:18)
[2023-04-18 04:44] LABS: Alanine Aminotransferase 10 U/L (7-40); Albumin 2.5 g/dL (3.2-4.8); Alkaline Phosphatase 50 U/L (46-116); Anion Gap 9 (5-15); Aspartate Aminotransferase 10 U/L (13-40); BUN/Creatinine Ratio 7.4 (10.0-20.0); Bilirubin, Total < 0.2 mg/dL (0.2-1.0); Blood Urea Nitrogen 18 mg/dL (9-23); Carbon Dioxide 22 mmol/L (20-30); Chloride 118 mmol/L (98-107); Glucose 181 mg/dL (74-106); Potassium 3.3 mmol/L (3.5-5.1); Sodium 149 mmol/L (136-145); Total Protein 4.4 g/dL (5.7-8.2)
[2023-04-18 05:13] LABS: Eosinophils # (auto) 0 10 ^3/uL (0-0.8); Hematocrit 22.4 % (41.0-53.0); Hemoglobin 7.2 g/dL (13.5-17.5); White Blood Cell 9.6 10^3/uL (4.4-10.8)
[2023-04-18 05:15] LABS: Basophils # (auto) 0.1 10 ^3/uL (0-0.2); Basophils % (auto) 0.6 % (0.0-2.0); Lymphocytes # (auto) 0.9 10 ^3/uL (0.4-5.4); Mean Corpuscular Hemoglobin 29.3 pg (28.0-32.0); Mean Corpuscular Hgb Conc. 32.1 g/dL (32.0-36.0); Mean Corpuscular Volume 91.2 fL (80.0-100.0); Monocytes # (auto) 0.3 10 ^3/uL (0-1.3); Monocytes % (auto) 3.5 % (0.0-12.0); Neutrophils # (auto) 8.3 10 ^3/uL (1.6-8.6); Neutrophils % (auto) 86.9 % (37.0-80.0); Red Blood Cells 2.45 10^6/uL (4.5-5.90); Red Cell Distribution Width 16.4 % (11.8-14.3)
[2023-04-18] MEDS ORDERED: POTASSIUM CHL 20MEQ/100ML 100 ML IV ONE (05:30)
[2023-04-18] MEDS: ACCU-CHEK COMFORT CURVE STRIP VI SCH ×3 (05:43→17:54)
[2023-04-18] MEDS: InsuLIN REG 1unit/0.01ml Soln (100units/ml) SC SCH ×4 (05:45→18:02)
[2023-04-18 06:41] LABS: Base Excess -3.5 mmol/L (-2.0-2.0)
[2023-04-18] MEDS: fentaNYL Drip 2500mCg/250mlNS 250 ML IV SCH ×2 (06:42→21:07)
[2023-04-18] MEDS: MEROPENEM 1GM IVPB 100 ML IV SCH ×2 (08:51→21:06)
[2023-04-18] MEDS ORDERED: AZITHROMYCIN 500MG/ 250ML 250 ML IV SCH ×2 (10:00)
[2023-04-18] MEDS: MUPIROCIN 2% OINT 15gm or 22gm FOR MRSA NARES EACHNOSTRI SCH ×2 (10:08→21:19)
[2023-04-18] MEDS: ASPirin 81 mg TAB PO SCH (10:09)
[2023-04-18] MEDS: HYDROCORTISONE SOD SUCC 100 MG/2ML INJ VIAL IV SCH ×2 (10:09→21:18)
[2023-04-18] MEDS: PANTOPRAZOLE 40 MG/10 ML VIAL INJ IV SCH (10:09)
[2023-04-18] MEDS: FUROSEMIDE 20 MG/2 ML VIAL IV SCH ×3 (10:09→17:54)
[2023-04-18] MEDS ORDERED: PANTOPRAZOLE 40 MG/10 ML VIAL INJ IV ONE (10:15)
[2023-04-18] MEDS: HEPARIN SODIUM (PORCINE) 5000 UNITS/ML 1ML VIAL SC SCH ×2 (10:17→21:08)
[2023-04-18 11:17] LABS: Hemoglobin 7.5 g/dL (13.5-17.5)
[2023-04-18] MEDS: POTASSIUM CHL 20MEQ/100ML 100 ML IV SCH ×2 (12:19→12:33)
[2023-04-18] MEDS: LINEZOLID 600MG/300ML 300 ML IV SCH (12:19)
[2023-04-18] MEDS: Glucerna 1.2 Cal 1Liter BOTTLE GT SCH (13:00)
[2023-04-18] MEDS: MIDAZOLAM DRIP 50 mg/50mL 50 ML IV SCH (14:01)
[2023-04-18] MEDS: DOXYCYCLINE 100MG/250ML 250 ML IV SCH (14:08)
[2023-04-18] MEDS: EPINEPHrine HCL 250 ML IV SCH (15:21)
[2023-04-18] MEDS: TAMSULOSIN HYDROCHLORIDE 0.4 MG CAP PO SCH (17:54)
[2023-04-19] VITALS (104 sets, daily range): BP systolic 10–130; BP diastolic 50–71; PULSE 66–94; RESP 14–29; TEMP 96.6–98; O2SAT 10–100
[2023-04-19] MEDS: ALBUTEROL MEDNEB 2.5 mg/3ml NEB NEB SCH ×4 (00:10→18:17)
[2023-04-19] MEDS: IPRATROPIUM BROM 0.5 MG/2.5ML INH SOL NEB SCH ×4 (00:10→18:17)
[2023-04-19] MEDS: LINEZOLID 600MG/300ML 300 ML IV SCH ×2 (00:18→12:05)
[2023-04-19] MEDS: ACCU-CHEK COMFORT CURVE STRIP VI SCH ×4 (00:18→18:10)
[2023-04-19] MEDS: InsuLIN REG 1unit/0.01ml Soln (100units/ml) SC SCH ×4 (00:23→18:00)
[2023-04-19] MEDS: DOXYCYCLINE 100MG/250ML 250 ML IV SCH (02:26)
[2023-04-19 04:15] LABS: Basophils # (auto) 0 10 ^3/uL (0-0.2); Eosinophils # (auto) 0 10 ^3/uL (0-0.8); Hemoglobin 7.6 g/dL (13.5-17.5); Lymphocytes # (auto) 0.8 10 ^3/uL (0.4-5.4); Monocytes # (auto) 0.3 10 ^3/uL (0-1.3); Neutrophils # (auto) 6.8 10 ^3/uL (1.6-8.6); Neutrophils % (auto) 85.7 % (37.0-80.0); Red Cell Distribution Width 16.7 % (11.8-14.3)
[2023-04-19 04:18] LABS: Basophils % (auto) 0.2 % (0.0-2.0); Hematocrit 23.4 % (41.0-53.0); Lymphocytes % (auto) 10.7 % (10.0-50.0); Mean Corpuscular Hemoglobin 29.8 pg (28.0-32.0); Mean Corpuscular Hgb Conc. 32.7 g/dL (32.0-36.0); Monocytes % (auto) 3.4 % (0.0-12.0); Red Blood Cells 2.57 10^6/uL (4.5-5.90)
[2023-04-19 04:36] LABS: Alanine Aminotransferase 12 U/L (7-40); Albumin 2.6 g/dL (3.2-4.8); Alkaline Phosphatase 55 U/L (46-116); Anion Gap 9 (5-15); Aspartate Aminotransferase 18 U/L (13-40); BUN/Creatinine Ratio 9.3 (10.0-20.0); Bilirubin, Total 0.2 mg/dL (0.2-1.0); Blood Urea Nitrogen 24 mg/dL (9-23); Calcium 8.2 mg/dL (8.7-10.4); Carbon Dioxide 25 mmol/L (20-30); Chloride 115 mmol/L (98-107); Glucose 179 mg/dL (74-106); Potassium 3.6 mmol/L (3.5-5.1); Sodium 149 mmol/L (136-145)
[2023-04-19 04:37] LABS: Total Protein 4.8 g/dL (5.7-8.2)
[2023-04-19] MEDS: FUROSEMIDE 20 MG/2 ML VIAL IV SCH ×2 (06:08→18:09)
[2023-04-19] MEDS: PROPOFOL 100 ML IV SCH (06:09)
[2023-04-19] MEDS: NOREPINEPHRINE BITARTRATE 16 MG in SODIUM CHL 0.9% 234 ML IV SCH (07:31)
[2023-04-19 08:02] LABS: Base Excess -2.5 mmol/L (-2.0-2.0)
[2023-04-19] MEDS: MEROPENEM 1GM IVPB 100 ML IV SCH ×2 (09:00→20:44)
[2023-04-19] MEDS: MIDAZOLAM DRIP 50 mg/50mL 50 ML IV SCH ×2 (09:01→20:00)
[2023-04-19] MEDS ORDERED: PANTOPRAZOLE 40 MG/10 ML VIAL INJ IV SCH (10:00)
[2023-04-19] MEDS: MUPIROCIN 2% OINT 15gm or 22gm FOR MRSA NARES EACHNOSTRI SCH ×2 (10:10→20:45)
[2023-04-19] MEDS: HYDROCORTISONE SOD SUCC 100 MG/2ML INJ VIAL IV SCH ×2 (10:11→22:33)
[2023-04-19] MEDS: ASPirin 81 mg TAB PO SCH (10:11)
[2023-04-19] MEDS: PANTOPRAZOLE 40 MG/10 ML VIAL INJ IV SCH (10:11)
[2023-04-19] MEDS: HEPARIN SODIUM (PORCINE) 5000 UNITS/ML 1ML VIAL SC SCH ×2 (10:22→20:46)
[2023-04-19] MEDS: VASOPRESSIN 20 UNITS in SODIUM CHL 0.9% 99 ML IV SCH ×2 (10:23→22:04)
[2023-04-19] MEDS ORDERED: POLYETHYLENE GLYCOL 17 GM PWDR PO PRN (12:45)
[2023-04-19] MEDS: ALBUMIN 25% 100 ML IV SCH ×2 (13:00→20:45)
[2023-04-19] MEDS: fentaNYL Drip 2500mCg/250mlNS 250 ML IV SCH (13:16)
[2023-04-19] MEDS: EPINEPHrine HCL 250 ML IV SCH (14:48)
[2023-04-19] MEDS: TAMSULOSIN HYDROCHLORIDE 0.4 MG CAP PO SCH (18:10)
[2023-04-20] VITALS (105 sets, daily range): BP systolic 94–139; BP diastolic 51–92; PULSE 65–102; RESP 6–21; TEMP 97–98.6; O2SAT 90–100
[2023-04-20] MEDS: IPRATROPIUM BROM 0.5 MG/2.5ML INH SOL NEB SCH ×4 (00:18→18:48)
[2023-04-20] MEDS: ALBUTEROL MEDNEB 2.5 mg/3ml NEB NEB SCH ×4 (00:18→18:48)
[2023-04-20] MEDS: MIDAZOLAM DRIP 50 mg/50mL 50 ML IV SCH (01:03)
[2023-04-20] MEDS: LINEZOLID 600MG/300ML 300 ML IV SCH ×2 (01:06→12:18)
[2023-04-20] MEDS: fentaNYL Drip 2500mCg/250mlNS 250 ML IV SCH ×2 (02:52→15:52)
[2023-04-20] MEDS: ALBUMIN 25% 100 ML IV SCH (03:15)
[2023-04-20] MEDS: ACCU-CHEK COMFORT CURVE STRIP VI SCH ×4 (05:43→18:05)
[2023-04-20] MEDS: FUROSEMIDE 20 MG/2 ML VIAL IV SCH ×2 (05:43→10:04)
[2023-04-20] MEDS: InsuLIN REG 1unit/0.01ml Soln (100units/ml) SC SCH ×4 (05:50→18:00)
[2023-04-20 06:10] LABS: Basophils # (auto) 0 10 ^3/uL (0-0.2); Eosinophils # (auto) 0 10 ^3/uL (0-0.8); Eosinophils % (auto) 0.1 % (0.0-7.0); Lymphocytes # (auto) 0.8 10 ^3/uL (0.4-5.4); Monocytes # (auto) 0.2 10 ^3/uL (0-1.3); Neutrophils # (auto) 2.7 10 ^3/uL (1.6-8.6); Nucleated Red Blood Cells % 0.1 %; White Blood Cell 3.8 10^3/uL (4.4-10.8)
[2023-04-20 06:14] LABS: Basophils % (auto) 0.8 % (0.0-2.0); Hematocrit 19.3 % (41.0-53.0); Lymphocytes % (auto) 21.2 % (10.0-50.0); Mean Corpuscular Hemoglobin 29.1 pg (28.0-32.0); Mean Corpuscular Hgb Conc. 32.5 g/dL (32.0-36.0); Mean Corpuscular Volume 89.6 fL (80.0-100.0); Monocytes % (auto) 5.2 % (0.0-12.0); Neutrophils % (auto) 72.7 % (37.0-80.0); Red Blood Cells 2.16 10^6/uL (4.5-5.90); Red Cell Distribution Width 16.4 % (11.8-14.3)
[2023-04-20 06:19] LABS: Hemoglobin 6.3 g/dL (13.5-17.5)
[2023-04-20 06:21] LABS: Anion Gap 9 (5-15); Carbon Dioxide 29 mmol/L (20-30); Chloride 113 mmol/L (98-107); Sodium 151 mmol/L (136-145)
[2023-04-20 06:22] LABS: Calcium 8.6 mg/dL (8.5-10.1)
[2023-04-20 06:28] LABS: BUN/Creatinine Ratio 12.4 (10.0-20.0); Blood Urea Nitrogen 31 mg/dL (9-23); Glucose 145 mg/dL (74-106)
[2023-04-20] MEDS: NOREPINEPHRINE BITARTRATE 16 MG in SODIUM CHL 0.9% 234 ML IV SCH (07:39)
[2023-04-20] MEDS: VASOPRESSIN 20 UNITS in SODIUM CHL 0.9% 99 ML IV SCH ×2 (07:39→20:18)
[2023-04-20 07:51] LABS: Base Excess 3.3 mmol/L (-2.0-2.0)
[2023-04-20] MEDS: MEROPENEM 1GM IVPB 100 ML IV SCH ×2 (08:54→20:27)
[2023-04-20] MEDS: MUPIROCIN 2% OINT 15gm or 22gm FOR MRSA NARES EACHNOSTRI SCH (10:00)
[2023-04-20] MEDS: POTASSIUM EFFERVESENT TAB 25 MEQ GT SCH (10:01)
[2023-04-20] MEDS: PANTOPRAZOLE 40 MG/10 ML VIAL INJ IV SCH (10:04)
[2023-04-20] MEDS: POTASSIUM CHL 20MEQ/100ML 100 ML IV SCH ×3 (10:04→14:04)
[2023-04-20] MEDS: ASPirin 81 mg TAB PO SCH (10:05)
[2023-04-20] MEDS: HEPARIN SODIUM (PORCINE) 5000 UNITS/ML 1ML VIAL SC SCH ×2 (10:09→20:47)
[2023-04-20] MEDS ORDERED: METOCLOPRAMIDE 10 mg/10ml ORAL soln GT PRN (10:15)
[2023-04-20] MEDS: PROPOFOL 100 ML IV SCH ×2 (10:53→22:40)
[2023-04-20] MEDS: FREE WATER GT SCH ×2 (12:18→18:05)
[2023-04-20] MEDS: EPINEPHrine HCL 250 ML IV SCH (16:00)
[2023-04-20] MEDS: TAMSULOSIN HYDROCHLORIDE 0.4 MG CAP PO SCH (18:05)
[2023-04-20 20:09] LABS: Hematocrit 25.4 % (41.0-53.0); Hemoglobin 8.3 g/dL (13.5-17.5)
[2023-04-20 20:27] LABS: Chloride 111 mmol/L (98-107); Potassium 3.2 mmol/L (3.5-5.1); Sodium 151 mmol/L (136-145)
[2023-04-20 20:28] LABS: Anion Gap 6 (5-15); Calcium 8.8 mg/dL (8.5-10.1); Carbon Dioxide 34 mmol/L (20-30)
[2023-04-20 20:33] LABS: BUN/Creatinine Ratio 13.5 (10.0-20.0); Blood Urea Nitrogen 34 mg/dL (9-23); Glucose 92 mg/dL (74-106)
[2023-04-20] MEDS: DOCUSATE ORAL LIQUID 100 MG/10 ML UD GT SCH (22:00)
[2023-04-21] VITALS (108 sets, daily range): BP systolic 93–155; BP diastolic 53–94; PULSE 70–114; RESP 11–41; TEMP 98.4–100.2; O2SAT 96–100
[2023-04-21] MEDS: LINEZOLID 600MG/300ML 300 ML IV SCH ×3 (00:41→23:45)
[2023-04-21] MEDS: InsuLIN REG 1unit/0.01ml Soln (100units/ml) SC SCH ×5 (00:42→23:47)
[2023-04-21] MEDS: ACCU-CHEK COMFORT CURVE STRIP VI SCH ×5 (00:42→23:45)
[2023-04-21] MEDS: FREE WATER GT SCH ×5 (00:42→23:48)
[2023-04-21] MEDS: IPRATROPIUM BROM 0.5 MG/2.5ML INH SOL NEB SCH ×4 (00:43→18:00)
[2023-04-21] MEDS: ALBUTEROL MEDNEB 2.5 mg/3ml NEB NEB SCH ×4 (00:44→18:00)
[2023-04-21 04:24] LABS: Basophils # (auto) 0.1 10 ^3/uL (0-0.2); Basophils % (auto) 1.2 % (0.0-2.0); Eosinophils # (auto) 0.2 10 ^3/uL (0-0.8); Hemoglobin 8.4 g/dL (13.5-17.5); Lymphocytes # (auto) 1.6 10 ^3/uL (0.4-5.4); Monocytes # (auto) 0.5 10 ^3/uL (0-1.3); Neutrophils % (auto) 62.1 % (37.0-80.0)
[2023-04-21 04:26] LABS: Eosinophils % (auto) 3.5 % (0.0-7.0); Hematocrit 24.9 % (41.0-53.0); Lymphocytes % (auto) 25.8 % (10.0-50.0); Mean Corpuscular Hemoglobin 29.7 pg (28.0-32.0); Mean Corpuscular Hgb Conc. 33.8 g/dL (32.0-36.0); Mean Corpuscular Volume 87.8 fL (80.0-100.0); Monocytes % (auto) 7.4 % (0.0-12.0); Neutrophils # (auto) 3.9 10 ^3/uL (1.6-8.6); Red Blood Cells 2.83 10^6/uL (4.5-5.90); White Blood Cell 6.3 10^3/uL (4.4-10.8)
[2023-04-21 04:42] LABS: Alanine Aminotransferase 14 U/L (7-40); Albumin 3.1 g/dL (3.2-4.8); Alkaline Phosphatase 40 U/L (46-116); Anion Gap 5 (5-15); Aspartate Aminotransferase 23 U/L (13-40); BUN/Creatinine Ratio 14.8 (10.0-20.0); Bilirubin, Total 0.3 mg/dL (0.2-1.0); Blood Urea Nitrogen 37 mg/dL (9-23); Calcium 8.5 mg/dL (8.7-10.4); Carbon Dioxide 34 mmol/L (20-30); Chloride 111 mmol/L (98-107); Glucose 115 mg/dL (74-106); Potassium 3.1 mmol/L (3.5-5.1); Sodium 150 mmol/L (136-145); Total Protein 4.8 g/dL (5.7-8.2)
[2023-04-21] MEDS: fentaNYL Drip 2500mCg/250mlNS 250 ML IV SCH (06:46)
[2023-04-21] MEDS: VASOPRESSIN 20 UNITS in SODIUM CHL 0.9% 99 ML IV SCH ×2 (07:07→11:05)
[2023-04-21] MEDS: NOREPINEPHRINE BITARTRATE 16 MG in SODIUM CHL 0.9% 234 ML IV SCH (07:07)
[2023-04-21] MEDS: EPINEPHrine HCL 250 ML IV SCH (07:07)
[2023-04-21] MEDS: DOCUSATE ORAL LIQUID 100 MG/10 ML UD GT SCH (07:15)
[2023-04-21 07:49] LABS: Base Excess 6.5 mmol/L (-2.0-2.0)
[2023-04-21] MEDS: PANTOPRAZOLE 40 MG/10 ML VIAL INJ IV SCH (08:49)
[2023-04-21] MEDS: MEROPENEM 1GM IVPB 100 ML IV SCH ×2 (08:49→21:54)
[2023-04-21] MEDS: POTASSIUM EFFERVESENT TAB 25 MEQ GT SCH (08:50)
[2023-04-21] MEDS: ASPirin 81 mg TAB PO SCH (08:50)
[2023-04-21] MEDS: FUROSEMIDE 20 MG/2 ML VIAL IV SCH (08:50)
[2023-04-21] MEDS: POTASSIUM CHL 20MEQ/100ML 100 ML IV SCH ×2 (08:58→10:31)
[2023-04-21] MEDS: ENOXAPARIN SOD 30 MG/0.3 ML SYRINGE SC SCH (10:29)
[2023-04-21 15:27] LABS: Base Excess 5.5 mmol/L (-2.0-2.0)
[2023-04-21] MEDS: TAMSULOSIN HYDROCHLORIDE 0.4 MG CAP PO SCH (17:00)
[2023-04-22] VITALS (107 sets, daily range): BP systolic 106–161; BP diastolic 58–98; PULSE 96–129; RESP 9–21; TEMP 98.2–100.4; O2SAT 99–100
[2023-04-22] MEDS: ALBUTEROL MEDNEB 2.5 mg/3ml NEB NEB SCH ×4 (00:06→19:01)
[2023-04-22] MEDS: IPRATROPIUM BROM 0.5 MG/2.5ML INH SOL NEB SCH ×4 (00:06→19:01)
[2023-04-22 04:32] LABS: Anion Gap 9 (5-15); Basophils # (auto) 0.1 10 ^3/uL (0-0.2); Calcium 8.9 mg/dL (8.7-10.4); Carbon Dioxide 31 mmol/L (20-30); Chloride 108 mmol/L (98-107); Eosinophils # (auto) 0.2 10 ^3/uL (0-0.8); Eosinophils % (auto) 2.5 % (0.0-7.0); Hematocrit 32.3 % (41.0-53.0); Hemoglobin 10.8 g/dL (13.5-17.5); Lymphocytes # (auto) 1.4 10 ^3/uL (0.4-5.4); Mean Corpuscular Hemoglobin 29.5 pg (28.0-32.0); Mean Corpuscular Hgb Conc. 33.4 g/dL (32.0-36.0); Mean Corpuscular Volume 88.3 fL (80.0-100.0); Monocytes # (auto) 0.5 10 ^3/uL (0-1.3); Monocytes % (auto) 6.8 % (0.0-12.0); Neutrophils # (auto) 5.5 10 ^3/uL (1.6-8.6); Neutrophils % (auto) 71.7 % (37.0-80.0); Potassium 3.3 mmol/L (3.5-5.1); Red Blood Cells 3.67 10^6/uL (4.5-5.90); Red Cell Distribution Width 15.7 % (11.8-14.3); Sodium 148 mmol/L (136-145); White Blood Cell 7.6 10^3/uL (4.4-10.8)
[2023-04-22 04:38] LABS: BUN/Creatinine Ratio 15.5 (10.0-20.0); Blood Urea Nitrogen 36 mg/dL (9-23); Glucose 141 mg/dL (74-106); Magnesium 1.9 mg/dL (1.6-2.6)
[2023-04-22] MEDS ORDERED: POTASSIUM CHL 20MEQ/100ML 100 ML IV ONE (05:00)
[2023-04-22] MEDS: ACCU-CHEK COMFORT CURVE STRIP VI SCH ×3 (05:18→17:48)
[2023-04-22] MEDS: InsuLIN REG 1unit/0.01ml Soln (100units/ml) SC SCH ×3 (05:23→17:48)
[2023-04-22] MEDS: FREE WATER GT SCH ×3 (05:24→17:48)
[2023-04-22] MEDS: VASOPRESSIN 20 UNITS in SODIUM CHL 0.9% 99 ML IV SCH ×2 (05:24→16:46)
[2023-04-22] MEDS: DexmedeTOMIDine 200 MCG in D5W 5% 48 ML IV SCH ×2 (08:00→21:06)
[2023-04-22] MEDS: NOREPINEPHRINE BITARTRATE 16 MG in SODIUM CHL 0.9% 234 ML IV SCH (08:15)
[2023-04-22] MEDS: MEROPENEM 1GM IVPB 100 ML IV SCH ×2 (08:52→21:52)
[2023-04-22 09:20] LABS: Base Excess 6.5 mmol/L (-2.0-2.0)
[2023-04-22] MEDS: PANTOPRAZOLE 40 MG/10 ML VIAL INJ IV SCH (09:54)
[2023-04-22] MEDS: POTASSIUM EFFERVESENT TAB 25 MEQ GT SCH (09:54)
[2023-04-22] MEDS: ASPirin 81 mg TAB PO SCH (09:54)
[2023-04-22] MEDS: ENOXAPARIN SOD 30 MG/0.3 ML SYRINGE SC SCH (09:54)
[2023-04-22] MEDS: LINEZOLID 600MG/300ML 300 ML IV SCH (11:32)
[2023-04-22] MEDS: PROPOFOL 100 ML IV SCH (13:15)
[2023-04-22] MEDS: TAMSULOSIN HYDROCHLORIDE 0.4 MG CAP PO SCH (17:50)
[2023-04-22] MEDS: fentaNYL Drip 2500mCg/250mlNS 250 ML IV SCH (19:45)
[2023-04-23] VITALS (103 sets, daily range): BP systolic 79–155; BP diastolic 53–107; PULSE 87–123; RESP 11–26; TEMP 97.9–99.1; O2SAT 98–100
[2023-04-23] MEDS: ALBUTEROL MEDNEB 2.5 mg/3ml NEB NEB SCH ×4 (00:21→18:59)
[2023-04-23] MEDS: IPRATROPIUM BROM 0.5 MG/2.5ML INH SOL NEB SCH ×4 (00:21→18:59)
[2023-04-23] MEDS: FREE WATER GT SCH ×5 (00:36→23:49)
[2023-04-23] MEDS: ACCU-CHEK COMFORT CURVE STRIP VI SCH ×5 (00:36→23:49)
[2023-04-23] MEDS: LINEZOLID 600MG/300ML 300 ML IV SCH (00:38)
[2023-04-23] MEDS: VASOPRESSIN 20 UNITS in SODIUM CHL 0.9% 99 ML IV SCH (03:30)
[2023-04-23 04:05] LABS: Basophils # (auto) 0.1 10 ^3/uL (0-0.2); Eosinophils # (auto) 0.2 10 ^3/uL (0-0.8); Eosinophils % (auto) 2.9 % (0.0-7.0); Hematocrit 32.7 % (41.0-53.0); Hemoglobin 10.5 g/dL (13.5-17.5); Lymphocytes # (auto) 1.5 10 ^3/uL (0.4-5.4); Lymphocytes % (auto) 17.4 % (10.0-50.0); Mean Corpuscular Hemoglobin 28.4 pg (28.0-32.0); Mean Corpuscular Hgb Conc. 32.1 g/dL (32.0-36.0); Mean Corpuscular Volume 88.5 fL (80.0-100.0); Monocytes # (auto) 0.6 10 ^3/uL (0-1.3); Monocytes % (auto) 6.8 % (0.0-12.0); Neutrophils # (auto) 6.1 10 ^3/uL (1.6-8.6); Neutrophils % (auto) 71.9 % (37.0-80.0); Red Cell Distribution Width 16.1 % (11.8-14.3); White Blood Cell 8.5 10^3/uL (4.4-10.8)
[2023-04-23 04:15] LABS: Chloride 108 mmol/L (98-107); Potassium 3.9 mmol/L (3.5-5.1); Sodium 148 mmol/L (136-145)
[2023-04-23 04:16] LABS: Anion Gap 9 (5-15); Carbon Dioxide 31 mmol/L (20-30)
[2023-04-23 04:21] LABS: BUN/Creatinine Ratio 15.4 (10.0-20.0); Blood Urea Nitrogen 32 mg/dL (9-23); Glucose 143 mg/dL (74-106)
[2023-04-23] MEDS: InsuLIN REG 1unit/0.01ml Soln (100units/ml) SC SCH ×5 (05:29→23:49)
[2023-04-23] MEDS: NOREPINEPHRINE BITARTRATE 16 MG in SODIUM CHL 0.9% 234 ML IV SCH (08:15)
[2023-04-23 08:30] LABS: Base Excess 6.2 mmol/L (-2.0-2.0)
[2023-04-23] MEDS: Glucerna 1.2 Cal 1Liter BOTTLE GT SCH (09:37)
[2023-04-23] MEDS: PANTOPRAZOLE 40 MG/10 ML VIAL INJ IV SCH (09:38)
[2023-04-23] MEDS: MEROPENEM 1GM IVPB 100 ML IV SCH (09:38)
[2023-04-23] MEDS: ASPirin 81 mg TAB PO SCH (09:38)
[2023-04-23] MEDS: POTASSIUM EFFERVESENT TAB 25 MEQ GT SCH (09:38)
[2023-04-23] MEDS: ENOXAPARIN SOD 30 MG/0.3 ML SYRINGE SC SCH (09:38)
[2023-04-23] MEDS ORDERED: CHOLESTYRAMINE 4 GM POWDER GT ONE (09:45)
[2023-04-23] MEDS: DexmedeTOMIDine 200 MCG in D5W 5% 48 ML IV SCH ×2 (10:12→23:18)
[2023-04-23] MEDS ORDERED: cefTRIAXone 1GM/50ML D5W 0 ML IV ONE (11:55)
[2023-04-23] MEDS: METOPROLOL TARTRATE 25 MG TAB PO SCH ×2 (12:02→21:54)
[2023-04-23] MEDS: CEFTRIAXONE SODIUM 2 GM in D5W 5% 100 ML IV SCH (12:11)
[2023-04-23] MEDS: fentaNYL Drip 2500mCg/250mlNS 250 ML IV SCH (19:45)
[2023-04-23 23:42] LABS: Potassium 4.3 mmol/L (3.5-5.1)
[2023-04-23 23:49] LABS: Magnesium 2.1 mg/dL (1.6-2.6)
[2023-04-24] VITALS (77 sets, daily range): BP systolic 121–162; BP diastolic 52–96; PULSE 88–133; RESP 12–29; TEMP 98.8–99.8; O2SAT 10–100
[2023-04-24] MEDS: IPRATROPIUM BROM 0.5 MG/2.5ML INH SOL NEB SCH ×4 (00:27→18:55)
[2023-04-24] MEDS: ALBUTEROL MEDNEB 2.5 mg/3ml NEB NEB SCH ×4 (00:28→18:55)
[2023-04-24 04:07] LABS: Basophils # (auto) 0.1 10 ^3/uL (0-0.2); Basophils % (auto) 1.6 % (0.0-2.0); Eosinophils # (auto) 0.3 10 ^3/uL (0-0.8); Eosinophils % (auto) 4.8 % (0.0-7.0); Hematocrit 30.5 % (41.0-53.0); Hemoglobin 9.9 g/dL (13.5-17.5); Lymphocytes # (auto) 1.4 10 ^3/uL (0.4-5.4); Lymphocytes % (auto) 21.6 % (10.0-50.0); Mean Corpuscular Hemoglobin 29.1 pg (28.0-32.0); Mean Corpuscular Hgb Conc. 32.5 g/dL (32.0-36.0); Mean Corpuscular Volume 89.5 fL (80.0-100.0); Monocytes # (auto) 0.6 10 ^3/uL (0-1.3); Monocytes % (auto) 8.9 % (0.0-12.0); Neutrophils # (auto) 4.1 10 ^3/uL (1.6-8.6); Neutrophils % (auto) 63.1 % (37.0-80.0); Nucleated Red Blood Cells % 0.1 %; Red Blood Cells 3.41 10^6/uL (4.5-5.90); White Blood Cell 6.6 10^3/uL (4.4-10.8)
[2023-04-24 04:33] LABS: Chloride 110 mmol/L (98-107); Potassium 3.9 mmol/L (3.5-5.1); Sodium 150 mmol/L (136-145)
[2023-04-24 04:34] LABS: Anion Gap 8 (5-15); Carbon Dioxide 32 mmol/L (20-30)
[2023-04-24 04:39] LABS: Blood Urea Nitrogen 30 mg/dL (9-23); Glucose 111 mg/dL (74-106)
[2023-04-24] MEDS: FREE WATER GT SCH ×4 (05:32→23:42)
[2023-04-24] MEDS: InsuLIN REG 1unit/0.01ml Soln (100units/ml) SC SCH ×4 (05:33→23:42)
[2023-04-24] MEDS: ACCU-CHEK COMFORT CURVE STRIP VI SCH ×4 (05:33→23:41)
[2023-04-24 07:40] LABS: Base Excess 6.1 mmol/L (-2.0-2.0)
[2023-04-24] MEDS: NOREPINEPHRINE BITARTRATE 16 MG in SODIUM CHL 0.9% 234 ML IV SCH (08:15)
[2023-04-24] MEDS: PANTOPRAZOLE 40 MG/10 ML VIAL INJ IV SCH (10:36)
[2023-04-24] MEDS: CEFTRIAXONE SODIUM 2 GM in D5W 5% 100 ML IV SCH (10:37)
[2023-04-24] MEDS: ASPirin 81 mg TAB PO SCH (10:37)
[2023-04-24] MEDS: METOPROLOL TARTRATE 25 MG TAB PO SCH ×2 (10:37→21:31)
[2023-04-24] MEDS: POTASSIUM EFFERVESENT TAB 25 MEQ GT SCH (10:38)
[2023-04-24] MEDS: ENOXAPARIN SOD 30 MG/0.3 ML SYRINGE SC SCH (10:38)
[2023-04-24] MEDS: DexmedeTOMIDine 200 MCG in D5W 5% 48 ML IV SCH ×2 (12:24→23:42)
[2023-04-24] MEDS ORDERED: NYSTATIN TOPICAL POWDER 15GM TOP ONE (17:30)
[2023-04-24] MEDS: fentaNYL Drip 2500mCg/250mlNS 250 ML IV SCH (19:45)
[2023-04-24] MEDS ORDERED: NYSTATIN TOPICAL POWDER 15GM TOP SCH (22:00)
[2023-04-25] VITALS (67 sets, daily range): BP systolic 122–167; BP diastolic 64–105; PULSE 85–122; RESP 13–37; TEMP 97.9–99.1; O2SAT 93–100
[2023-04-25] MEDS: ALBUTEROL MEDNEB 2.5 mg/3ml NEB NEB SCH ×4 (00:40→18:13)
[2023-04-25] MEDS: IPRATROPIUM BROM 0.5 MG/2.5ML INH SOL NEB SCH ×4 (00:40→18:13)
[2023-04-25 04:09] LABS: Basophils # (auto) 0.1 10 ^3/uL (0-0.2); Basophils % (auto) 2.2 % (0.0-2.0); Eosinophils # (auto) 0.3 10 ^3/uL (0-0.8); Eosinophils % (auto) 4.4 % (0.0-7.0); Hematocrit 29.7 % (41.0-53.0); Hemoglobin 9.6 g/dL (13.5-17.5); Lymphocytes # (auto) 1.5 10 ^3/uL (0.4-5.4); Lymphocytes % (auto) 26.3 % (10.0-50.0); Mean Corpuscular Hemoglobin 28.8 pg (28.0-32.0); Mean Corpuscular Hgb Conc. 32.2 g/dL (32.0-36.0); Mean Corpuscular Volume 89.5 fL (80.0-100.0); Monocytes # (auto) 0.6 10 ^3/uL (0-1.3); Monocytes % (auto) 10.3 % (0.0-12.0); Neutrophils # (auto) 3.3 10 ^3/uL (1.6-8.6); Neutrophils % (auto) 56.8 % (37.0-80.0); Nucleated Red Blood Cells % 0.2 %; Red Blood Cells 3.32 10^6/uL (4.5-5.90); Red Cell Distribution Width 15.5 % (11.8-14.3); White Blood Cell 5.8 10^3/uL (4.4-10.8)
[2023-04-25 04:15] LABS: Chloride 111 mmol/L (98-107); Potassium 3.9 mmol/L (3.5-5.1); Sodium 150 mmol/L (136-145)
[2023-04-25 04:16] LABS: Anion Gap 8 (5-15); Calcium 8.9 mg/dL (8.7-10.4); Carbon Dioxide 31 mmol/L (20-30)
[2023-04-25 04:21] LABS: BUN/Creatinine Ratio 13.1 (10.0-20.0); Blood Urea Nitrogen 26 mg/dL (9-23); Glucose 89 mg/dL (74-106)
[2023-04-25] MEDS: ACCU-CHEK COMFORT CURVE STRIP VI SCH ×3 (05:38→17:25)
[2023-04-25] MEDS: FREE WATER GT SCH ×3 (05:38→17:26)
[2023-04-25] MEDS: InsuLIN REG 1unit/0.01ml Soln (100units/ml) SC SCH ×3 (05:38→17:26)
[2023-04-25] MEDS: NOREPINEPHRINE BITARTRATE 16 MG in SODIUM CHL 0.9% 234 ML IV SCH (08:15)
[2023-04-25 08:17] LABS: Base Excess 2.4 mmol/L (-2.0-2.0)
[2023-04-25] MEDS: CEFTRIAXONE SODIUM 2 GM in D5W 5% 100 ML IV SCH (09:42)
[2023-04-25] MEDS: METOPROLOL TARTRATE 25 MG TAB PO SCH (09:43)
[2023-04-25] MEDS: PANTOPRAZOLE 40 MG/10 ML VIAL INJ IV SCH (09:43)
[2023-04-25] MEDS: ENOXAPARIN SOD 30 MG/0.3 ML SYRINGE SC SCH (09:43)
[2023-04-25] MEDS: POTASSIUM EFFERVESENT TAB 25 MEQ GT SCH (09:43)
[2023-04-25] MEDS: ASPirin 81 mg TAB PO SCH (09:43)
[2023-04-25] MEDS ORDERED: SODIUM CHLORIDE 0.9% 1,000 ML IV SCH (14:30)
[2023-04-25] MEDS: DexmedeTOMIDine 200 MCG in D5W 5% 48 ML IV SCH ×2 (14:36→22:18)
[2023-04-25] MEDS ORDERED: D5W 5% 1,000 ML IV ONE (17:00)
[2023-04-25] MEDS: fentaNYL Drip 2500mCg/250mlNS 250 ML IV SCH (19:45)
[2023-04-25] MEDS ORDERED: DexmedeTOMIDine 2 ML IV ONE (22:18)
[2023-04-26] VITALS (66 sets, daily range): BP systolic 88–156; BP diastolic 60–105; PULSE 85–118; RESP 13–29; TEMP 98.2–99.9; O2SAT 99–100
[2023-04-26] MEDS: ALBUTEROL MEDNEB 2.5 mg/3ml NEB NEB SCH ×4 (00:10→18:20)
[2023-04-26] MEDS: IPRATROPIUM BROM 0.5 MG/2.5ML INH SOL NEB SCH ×4 (00:10→18:20)
[2023-04-26] MEDS: FREE WATER GT SCH ×5 (00:14→23:45)
[2023-04-26] MEDS: METOPROLOL TARTRATE 25 MG TAB PO SCH ×2 (00:14→22:20)
[2023-04-26] MEDS: ACCU-CHEK COMFORT CURVE STRIP VI SCH ×5 (00:14→23:45)
[2023-04-26 04:05] LABS: Basophils # (auto) 0.1 10 ^3/uL (0-0.2); Basophils % (auto) 1.4 % (0.0-2.0); Eosinophils # (auto) 0.1 10 ^3/uL (0-0.8); Eosinophils % (auto) 1.3 % (0.0-7.0); Hemoglobin 10.2 g/dL (13.5-17.5); Lymphocytes # (auto) 1.5 10 ^3/uL (0.4-5.4); Lymphocytes % (auto) 17.4 % (10.0-50.0); Mean Corpuscular Hemoglobin 29.5 pg (28.0-32.0); Mean Corpuscular Hgb Conc. 32.8 g/dL (32.0-36.0); Mean Corpuscular Volume 90.1 fL (80.0-100.0); Monocytes # (auto) 0.9 10 ^3/uL (0-1.3); Monocytes % (auto) 9.8 % (0.0-12.0); Neutrophils # (auto) 6.1 10 ^3/uL (1.6-8.6); Neutrophils % (auto) 70.1 % (37.0-80.0); Red Blood Cells 3.44 10^6/uL (4.5-5.90); White Blood Cell 8.7 10^3/uL (4.4-10.8)
[2023-04-26 04:30] LABS: Alanine Aminotransferase 20 U/L (7-40); Alkaline Phosphatase 52 U/L (46-116); Anion Gap 7 (5-15); Aspartate Aminotransferase 26 U/L (13-40); BUN/Creatinine Ratio 11.3 (10.0-20.0); Blood Urea Nitrogen 24 mg/dL (9-23); Calcium 8.8 mg/dL (8.7-10.4); Carbon Dioxide 30 mmol/L (20-30); Chloride 110 mmol/L (98-107); Glucose 149 mg/dL (74-106); Potassium 4.4 mmol/L (3.5-5.1); Sodium 147 mmol/L (136-145)
[2023-04-26 04:31] LABS: Albumin 3.2 g/dL (3.2-4.8); Bilirubin, Total 0.4 mg/dL (0.2-1.0); Total Protein 5.3 g/dL (5.7-8.2)
[2023-04-26] MEDS: InsuLIN REG 1unit/0.01ml Soln (100units/ml) SC SCH ×5 (06:31→23:48)
[2023-04-26] MEDS: NOREPINEPHRINE BITARTRATE 16 MG in SODIUM CHL 0.9% 234 ML IV SCH (08:15)
[2023-04-26 08:43] LABS: Base Excess 3.5 mmol/L (-2.0-2.0)
[2023-04-26] MEDS ORDERED: Glucerna 1.2 Cal 1Liter BOTTLE GT SCH (09:45)
[2023-04-26] MEDS: POTASSIUM EFFERVESENT TAB 25 MEQ GT SCH (11:04)
[2023-04-26] MEDS: PANTOPRAZOLE 40 MG/10 ML VIAL INJ IV SCH (11:04)
[2023-04-26] MEDS: ASPirin 81 mg TAB PO SCH (11:04)
[2023-04-26] MEDS: ENOXAPARIN SOD 30 MG/0.3 ML SYRINGE SC SCH (11:04)
[2023-04-26] MEDS: CEFTRIAXONE SODIUM 2 GM in D5W 5% 100 ML IV SCH (11:04)
[2023-04-26] MEDS: SOD CHL 0.45% 1,000 ML IV SCH ×2 (13:01→22:33)
[2023-04-26] MEDS: DexmedeTOMIDine 200 MCG in D5W 5% 48 ML IV SCH (16:48)
[2023-04-26] MEDS: fentaNYL Drip 2500mCg/250mlNS 250 ML IV SCH (19:45)
[2023-04-27] VITALS (61 sets, daily range): BP systolic 107–144; BP diastolic 71–90; PULSE 79–108; RESP 15–25; TEMP 98.5–99.5; O2SAT 97–100
[2023-04-27] MEDS: ALBUTEROL MEDNEB 2.5 mg/3ml NEB NEB SCH ×4 (00:18→18:50)
[2023-04-27] MEDS: IPRATROPIUM BROM 0.5 MG/2.5ML INH SOL NEB SCH ×4 (00:18→18:50)
[2023-04-27 04:17] LABS: Basophils # (auto) 0.2 10 ^3/uL (0-0.2); Basophils % (auto) 1.7 % (0.0-2.0); Eosinophils # (auto) 0.2 10 ^3/uL (0-0.8); Eosinophils % (auto) 2.2 % (0.0-7.0); Hematocrit 30.9 % (41.0-53.0); Hemoglobin 10.1 g/dL (13.5-17.5); Lymphocytes # (auto) 2.6 10 ^3/uL (0.4-5.4); Lymphocytes % (auto) 26.8 % (10.0-50.0); Mean Corpuscular Hemoglobin 29.4 pg (28.0-32.0); Mean Corpuscular Hgb Conc. 32.9 g/dL (32.0-36.0); Mean Corpuscular Volume 89.5 fL (80.0-100.0); Monocytes # (auto) 0.9 10 ^3/uL (0-1.3); Monocytes % (auto) 9.2 % (0.0-12.0); Neutrophils # (auto) 5.9 10 ^3/uL (1.6-8.6); Neutrophils % (auto) 60.1 % (37.0-80.0); Nucleated Red Blood Cells % 0.2 %; Red Blood Cells 3.45 10^6/uL (4.5-5.90); Red Cell Distribution Width 15.4 % (11.8-14.3); White Blood Cell 9.8 10^3/uL (4.4-10.8)
[2023-04-27 04:28] LABS: Calcium 8.8 mg/dL (8.7-10.4); Chloride 109 mmol/L (98-107); Potassium 3.8 mmol/L (3.5-5.1); Sodium 144 mmol/L (136-145)
[2023-04-27 04:29] LABS: Anion Gap 7 (5-15); Carbon Dioxide 28 mmol/L (20-30)
[2023-04-27 04:34] LABS: Blood Urea Nitrogen 18 mg/dL (9-23); Glucose 97 mg/dL (74-106)
[2023-04-27] MEDS: DexmedeTOMIDine 200 MCG in D5W 5% 48 ML IV SCH ×2 (05:54→19:00)
[2023-04-27] MEDS: InsuLIN REG 1unit/0.01ml Soln (100units/ml) SC SCH ×4 (06:00→23:35)
[2023-04-27] MEDS: FREE WATER GT SCH ×4 (06:08→23:33)
[2023-04-27] MEDS: ACCU-CHEK COMFORT CURVE STRIP VI SCH ×4 (06:08→23:33)
[2023-04-27 07:45] LABS: Base Excess 1.3 mmol/L (-2.0-2.0)
[2023-04-27] MEDS: NOREPINEPHRINE BITARTRATE 16 MG in SODIUM CHL 0.9% 234 ML IV SCH (08:15)
[2023-04-27] MEDS: ASPirin 81 mg TAB PO SCH (10:42)
[2023-04-27] MEDS: PANTOPRAZOLE 40 MG/10 ML VIAL INJ IV SCH (10:42)
[2023-04-27] MEDS: METOPROLOL TARTRATE 25 MG TAB PO SCH ×2 (10:43→21:36)
[2023-04-27] MEDS: ENOXAPARIN SOD 30 MG/0.3 ML SYRINGE SC SCH (10:43)
[2023-04-27] MEDS: POTASSIUM EFFERVESENT TAB 25 MEQ GT SCH (10:44)
[2023-04-27] MEDS: CEFTRIAXONE SODIUM 2 GM in D5W 5% 100 ML IV SCH (10:45)
[2023-04-27] MEDS: fentaNYL Drip 2500mCg/250mlNS 250 ML IV SCH (19:45)
[2023-04-28] VITALS (71 sets, daily range): BP systolic 108–149; BP diastolic 55–96; PULSE 81–118; RESP 10–37; TEMP 97.3–99.7; O2SAT 81–100
[2023-04-28] MEDS: ALBUTEROL MEDNEB 2.5 mg/3ml NEB NEB SCH ×4 (00:26→18:23)
[2023-04-28] MEDS: IPRATROPIUM BROM 0.5 MG/2.5ML INH SOL NEB SCH ×4 (00:26→18:23)
[2023-04-28 04:44] LABS: Basophils # (auto) 0.1 10 ^3/uL (0-0.2); Basophils % (auto) 1.2 % (0.0-2.0); Eosinophils # (auto) 0.2 10 ^3/uL (0-0.8); Eosinophils % (auto) 2.4 % (0.0-7.0); Hematocrit 29.7 % (41.0-53.0); Hemoglobin 9.8 g/dL (13.5-17.5); Lymphocytes # (auto) 1.7 10 ^3/uL (0.4-5.4); Lymphocytes % (auto) 17.8 % (10.0-50.0); Mean Corpuscular Hemoglobin 29.2 pg (28.0-32.0); Mean Corpuscular Volume 88.6 fL (80.0-100.0); Monocytes # (auto) 0.7 10 ^3/uL (0-1.3); Monocytes % (auto) 7.2 % (0.0-12.0); Neutrophils % (auto) 71.4 % (37.0-80.0); Nucleated Red Blood Cells % 0.1 %; Red Blood Cells 3.35 10^6/uL (4.5-5.90); Red Cell Distribution Width 15.6 % (11.8-14.3); White Blood Cell 9.8 10^3/uL (4.4-10.8)
[2023-04-28 05:08] LABS: Alanine Aminotransferase 23 U/L (7-40); Albumin 3.2 g/dL (3.2-4.8); Alkaline Phosphatase 57 U/L (46-116); Anion Gap 5 (5-15); Aspartate Aminotransferase 28 U/L (13-40); BUN/Creatinine Ratio 8.4 (10.0-20.0); Bilirubin, Total 0.3 mg/dL (0.2-1.0); Blood Urea Nitrogen 14 mg/dL (9-23); Calcium 8.4 mg/dL (8.7-10.4); Carbon Dioxide 28 mmol/L (20-30); Chloride 110 mmol/L (98-107); Glucose 104 mg/dL (74-106); Potassium 4.2 mmol/L (3.5-5.1); Sodium 143 mmol/L (136-145); Total Protein 5.3 g/dL (5.7-8.2)
[2023-04-28] MEDS: ACCU-CHEK COMFORT CURVE STRIP VI SCH ×3 (05:49→18:18)
[2023-04-28] MEDS: InsuLIN REG 1unit/0.01ml Soln (100units/ml) SC SCH ×3 (05:50→18:00)
[2023-04-28] MEDS: FREE WATER GT SCH ×3 (05:50→18:17)
[2023-04-28 07:52] LABS: Base Excess -1.9 mmol/L (-2.0-2.0)
[2023-04-28] MEDS: DexmedeTOMIDine 200 MCG in D5W 5% 48 ML IV SCH ×2 (08:06→21:12)
[2023-04-28] MEDS: NOREPINEPHRINE BITARTRATE 16 MG in SODIUM CHL 0.9% 234 ML IV SCH (08:15)
[2023-04-28] MEDS: PANTOPRAZOLE 40 MG/10 ML VIAL INJ IV SCH (12:18)
[2023-04-28] MEDS: CEFTRIAXONE SODIUM 2 GM in D5W 5% 100 ML IV SCH (12:18)
[2023-04-28] MEDS: POTASSIUM EFFERVESENT TAB 25 MEQ GT SCH (12:18)
[2023-04-28] MEDS: ENOXAPARIN SOD 30 MG/0.3 ML SYRINGE SC SCH (12:19)
[2023-04-28] MEDS: ASPirin 81 mg TAB PO SCH (12:27)
[2023-04-28] MEDS: METOPROLOL TARTRATE 25 MG TAB PO SCH ×2 (12:28→22:16)
[2023-04-28] MEDS: fentaNYL Drip 2500mCg/250mlNS 250 ML IV SCH (19:45)
[2023-04-29] VITALS (58 sets, daily range): BP systolic 117–158; BP diastolic 73–91; PULSE 80–109; RESP 12–33; TEMP 98.6; O2SAT 85–100
[2023-04-29] MEDS: IPRATROPIUM BROM 0.5 MG/2.5ML INH SOL NEB SCH ×3 (00:50→11:42)
[2023-04-29] MEDS: ALBUTEROL MEDNEB 2.5 mg/3ml NEB NEB SCH ×3 (00:50→11:42)
[2023-04-29] MEDS: FREE WATER GT SCH ×3 (05:54→11:34)
[2023-04-29] MEDS: ACCU-CHEK COMFORT CURVE STRIP VI SCH ×3 (05:55→11:33)
[2023-04-29] MEDS: InsuLIN REG 1unit/0.01ml Soln (100units/ml) SC SCH ×3 (05:55→11:33)
[2023-04-29 07:11] LABS: Base Excess -1.4 mmol/L (-2.0-2.0)
[2023-04-29] MEDS: NOREPINEPHRINE BITARTRATE 16 MG in SODIUM CHL 0.9% 234 ML IV SCH (08:15)
[2023-04-29] MEDS: PANTOPRAZOLE 40 MG/10 ML VIAL INJ IV SCH (09:59)
[2023-04-29] MEDS: POTASSIUM EFFERVESENT TAB 25 MEQ GT SCH (09:59)
[2023-04-29] MEDS: ASPirin 81 mg TAB PO SCH (09:59)
[2023-04-29] MEDS: ENOXAPARIN SOD 30 MG/0.3 ML SYRINGE SC SCH (10:00)
[2023-04-29] MEDS: METOPROLOL TARTRATE 25 MG TAB PO SCH (10:00)
[2023-04-29] MEDS: DexmedeTOMIDine 200 MCG in D5W 5% 48 ML IV SCH (10:18)
[2023-04-29] MEDS: CEFTRIAXONE SODIUM 2 GM in D5W 5% 100 ML IV SCH (10:51)
== END 2023-04-29 15:06 | disposition short-term general hospital (02) | DRG 870 ==
LOC: EDBD 09:39 → ER 09:39 → TELE 12:28 → ICU WEST 04-15 00:57
PROVIDERS: ADMIT Nurse Practitioner Family; ATTEND Nurse Practitioner Acute Care
PROC: 5A1955Z Respiratory Ventilation, Greater than 96 Consecutive Hours (ICD-10-PCS; principal; 2023-04-14)
PROC: 0BH17EZ Insertion of Endotracheal Airway into Trachea, Via Natural or Artificial Opening (ICD-10-PCS; 2023-04-14)
PROC: 4A023N7 Measurement of Cardiac Sampling and Pressure, Left Heart, Percutaneous Approach (ICD-10-PCS; 2023-04-16)
PROC: B211YZZ Fluoroscopy of Multiple Coronary Arteries using Other Contrast (ICD-10-PCS; 2023-04-16)
PROC: 30233N1 Transfusion of Nonautologous Red Blood Cells into Peripheral Vein, Percutaneous Approach (ICD-10-PCS; 2023-04-20)
DX: A41.9 Sepsis, unspecified organism (principal); G93.41 Metabolic encephalopathy; I21.4 Non-ST elevation (NSTEMI) myocardial infarction; I50.33 Acute on chronic diastolic (congestive) heart failure; J96.01 Acute respiratory failure with hypoxia; N17.0 Acute kidney failure with tubular necrosis; R65.21 Severe sepsis with septic shock; J18.9 Pneumonia, unspecified organism; E44.1 Mild protein-calorie malnutrition; G81.94 Hemiplegia, unspecified affecting left nondominant side; I13.0 Hypertensive heart and chronic kidney disease with heart failure and stage 1 through stage 4 chronic kidney disease, or unspecified chronic kidney disease; L03.114 Cellulitis of left upper limb; J98.19 Other pulmonary collapse; N13.6 Pyonephrosis; E87.1 Hypo-osmolality and hyponatremia; G93.1 Anoxic brain damage, not elsewhere classified; J98.11 Atelectasis; N18.4 Chronic kidney disease, stage 4 (severe); D63.1 Anemia in chronic kidney disease; E11.22 Type 2 diabetes mellitus with diabetic chronic kidney disease; E11.649 Type 2 diabetes mellitus with hypoglycemia without coma; E78.5 Hyperlipidemia, unspecified; I25.10 Atherosclerotic heart disease of native coronary artery without angina pectoris; N13.9 Obstructive and reflux uropathy, unspecified; K52.9 Noninfective gastroenteritis and colitis, unspecified; N20.0 Calculus of kidney; E11.65 Type 2 diabetes mellitus with hyperglycemia; L30.4 Erythema intertrigo; Z79.01 Long term (current) use of anticoagulants; Z79.4 Long term (current) use of insulin; Z79.82 Long term (current) use of aspirin; Z79.899 Other long term (current) drug therapy; Z83.3 Family history of diabetes mellitus; Z86.718 Personal history of other venous thrombosis and embolism; Z87.442 Personal history of urinary calculi; Z88.8 Allergy status to other drugs, medicaments and biological substances; Z68.22 Body mass index [BMI] 22.0-22.9, adult
CPT/HCPCS: 31500; 36415; 36556; 36600; 70450; 71045; 71250; 74018; 74176; 76775; 80048; 80053; 80061; 80320; 81001; 82270; 82306; 82570; 82805; 82962; 83605; 83735; 83880; 83970; 84100; 84132; 84156; 84300; 84443; 84484; 85014; 85018; 85025; 85610; 85730; 86850; 86900; 86901; 86922; 87040; 87070; 87081; 87086; 87205; 93005; 93306; 93458; 93970; 93971; 94002; 94003; 94640; 95819; 96365; 96368; 99152; 99291; C9113; G0378; J0696; J2185; J2250; J2704; J3480; J3490; J7042; J7060; P9047; Q9967